=== PATIENT | female | born 1995 | race Caucasian/White ===

== ENCOUNTER 2019-09-25 10:16 | Outpatient (CLI) | payer MEDICAID, SELFPAY ==
--- NOTE | ~2019-09-25 | US_ITS ---
EXAMINATION: US OB follow up DATE: 09/25/2019 11:40 INDICATION: Second trimester dating TECHNIQUE: Real-time ultrasound of the pelvis was performed. The interpreting radiologist was not pre sent for the study. COMPARISON: None. FINDINGS: The uterus measures 14.7 x 7.3 x 12.8 cm. There is a single living fetus in transverse lie. The placenta is posterior. There are hypoechoic areas of the placenta of unclear significance. cardiac activity and movement are noted. heart rate is 150 beats per minute (bpm). The a mniotic fluid index is subjectively normal. The following biometric data were obtained: Biparietal diameter (BPD): 3.1 cm; head circumference (HC): 11.9 cm; abdominal circumference (AC): 10 .0 cm; femur length (FL): 1.8 cm. These measurements are concordant. Estimated weight is 133 g +/- 20 g, which correlates with the 79th percentile when 03/17/2020 is used as estimated date of delivery. As single measurements, these parameters are each equal to the following estimated gestational ages w ith ranges of +/- 2 standard deviations: BPD: 15 weeks 6 days ( 14 weeks 5 days - 17 weeks 0 days). HC: 15 weeks 6 days ( 14 weeks 5 days - 17 weeks 1 days). AC: 16 weeks 1 days ( 14 weeks 3 days - 17 weeks 5 days). FL: 15 weeks 2 days ( 14 weeks 0 days - 16 weeks 5 days). estimated gestational age based solely on measurements from this exam is 15 weeks 3 days +/- 1 weeks 1 days. IMPRESSION: 1. Single living fetus in transverse lie. 2. Estimated weight is 133 g +/- 20 g, which correlates with the 79th percentile when 03/17/2020 is used as estimated date of delivery. 3. Hypoechoic areas of the placenta of unclear significance. Findings could reflect placental vessels however abruption could have a similar appearance. Follow-up ultrasound is recommended. Reviewed, dictated and finalized at location A. 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 Single living fetus in transverse lie. 2. Estimated weight is 133 g +/- 20 g, which correlates with the 79th per centile when 03/17/2020 is used as estimated date of delivery. 3. Hypoechoic areas of the placenta of unclear significance. Findings could ref lect placental vessels however abruption could have a similar appearance. Follo w-up ultrasound is recommended.
== END 2019-09-25 10:17 | disposition home or self-care (01) ==
PROVIDERS: Visit Provider Obstetrics & Gynecology
DX: Z34.92 Encounter for supervision of normal pregnancy, unspecified, second trimester (principal); Z3A.15 15 weeks gestation of pregnancy
CPT/HCPCS: 76816

== ENCOUNTER 2020-02-05 15:16 | Observation (INO) | payer OTHER, SELFPAY ==
[2020-02-05] VITALS (35 sets, daily range): BP systolic 117–145; BP diastolic 70–74; PULSE 79–120; TEMP 36.9; O2SAT 99–100; BMI 32.9
--- NOTE | ~2020-02-05 | US_ITS ---
EXAMINATION: US OB limited w BPP DATE: 02/05/2020 17:44 INDICATION: decelerations. TECHNIQUE: Real-time pelvic ultrasound was performed. The interpreting radiologist was not present fo r the study. COMPARISON: None. FINDINGS: There is a single living fetus in vertex presentation. The placenta is posterior. cardiac acti vity and movement are demonstrated. heart rate is 137 beats per minute (bpm). JAMIE is norm al measuring 13.7 cm. Biophysical profile performed by the technologist: breathing (30 sec sustained breathing in 30 minutes): 2 out of 2 movement (3 gross body movements in 30 minutes): 2 out of 2 tone (one episode of rgirvfy-iygoontvf-qzlijvk limb movement): 2 out of 2 Amniotic fluid pocket (2 cm): 2 out of 2 Total score: 8 out of 8 IMPRESSION: 1. Single living intrauterine in vertex presentation with heart rate of 137 bpm. 2. Normal JAMIE measures 13.7 cm. 3. Biophysical profile 8 out of 8. Reviewed, dictated and finalized at location A.
--- NOTE | 2020-02-05 16:28 | PC.NURSE ---
Pt was originally here at 1516 from office for NST, BPP and JAMIE due to FHR deceleration on NST at office- pt has gestational diabetes. Dr. Morin informed of contractions since pt arrival. Pt states she has been having contractions like this for the last week. Had only had an 8 oz glass of milk to drink today. Pt has been orally hydrating and keeping her bladder empty, but still slime. Orders received to change to observation status and start Procardia and send UA.
--- NOTE | 2020-02-05 16:29 | OBADM ---
This patient, Star Mitchell, admitted to the OB room Labor/Delivery/Recovery 119 for observation. Patient/family oriented to hospital policies and general routines including ID bracelet, bed and alarms, visiting hours, pain management, procedures, bathroom and other care routines, personal items, smoking policy, room service/diet, and visiting hours. Patient/Family are encouraged to report perceived risks to care and to ask questions if they do not understand what they are told or what they should do.
[2020-02-05 17:02] LABS: Add Urine Microscopic? NO; Appearance Urine Clear (Clear); Bilirubin Urine Negative (Negative); Blood Urine Negative (Negative); Color Urine Colorless (Yellow); Glucose Urine UA Negative (Negative); Ketones Urine Negative (Negative); Leukocyte Esterase Ur Negative LEU/UL (Negative); Nitrate Urine Negative (Negative); Protein Urine Negative (Negative); Urobilinogen Urine Negative mg/dL (<2.0)
[2020-02-05] MEDS: NIFEdipine 10 MG CAPSULE PO (17:05)
[2020-02-05 17:08] LABS: Specific Grav Ur 1.003 (1.001-1.035)
--- NOTE | 2020-02-05 18:30 | PC.NURSE ---
Updated Dr. Morin on patient continued contractions following procardia. Patient reports feeling contraction pain in back. Contractions palpate mild. FHT reactive. Orders received.
[2020-02-05] MEDS: TERBUTALINE SULFATE 1 MG/ML VIAL 0.25 MG SUB-Q ×2 (18:42→19:57)
--- NOTE | 2020-02-05 18:42 | PC.NURSE ---
Plan of care discussed with patient. Patient educated on terbutaline prior to administering. Patient agrees to plan of care and denies questions.
--- NOTE | 2020-02-05 19:55 | PC.NURSE ---
Updated Dr. Morin on patient contractions. FHT remain reactive. Patient slime >6 in an hour. Orders received.
--- NOTE | 2020-02-05 19:57 | PC.NURSE ---
Plan of care discussed with patient. Patient agrees to plan of care and denies questions. Second dose of terbutaline administered as ordered.
--- NOTE | 2020-02-05 21:22 | PC.NURSE ---
Discharge instructions reviewed with patient. Patient educated on labor precautions. Patient states understanding of all discharge instructions. Patient agrees to discharge. Patient left ambulating at 2122.
--- NOTE | 2020-03-01 07:38 | P.PNOB_ITS ---
OB - Triage/Final Diagnosis Evaluation Laboratory results: Laboratory Tests 02/05/20 16:53 Urine Color Colorless Urine Appearance Clear Urine pH 7.0 Ur Specific [place] 1.003 Urine Protein Negative Urine Glucose (UA) Negative Urine Ketones Negative Ur Blood (Man) Negative Urine Nitrate Negative Urine Bilirubin Negative Urine Urobilinogen Negative Leukocyte Esterase Rfl Negative Final Diagnosis (1) contractions: Code(s): O47.9 - False labor, unspecified Status: Acute
== END 2020-02-05 21:22 | disposition home or self-care (01) ==
PROVIDERS: Admitting Provider Obstetrics & Gynecology; Visit Provider Obstetrics & Gynecology
DX: O60.00 Preterm labor without delivery, unspecified trimester (principal); O36.8190 Decreased fetal movements, unspecified trimester, not applicable or unspecified; Z3A.00 Weeks of gestation of pregnancy not specified
CPT/HCPCS: 76815; 76819; 81003; 96372; A9270; G0378; G0379; J3105

== ENCOUNTER 2020-02-09 15:35 | Observation (INO) | payer OTHER, SELFPAY ==
[2020-02-09] VITALS (34 sets, daily range): BP systolic 120–123; BP diastolic 79–82; PULSE 74–124; TEMP 37.2; O2SAT 98–100; BMI 33.3
[2020-02-09] MEDS: TERBUTALINE SULFATE 1 MG/ML VIAL 0.25 MG SUB-Q ×2 (17:17→18:40)
--- NOTE | 2020-02-09 18:09 | OBADM ---
This patient, Star Mitchell, admitted to the OB room OB Post 113 for observation. Patient/family oriented to hospital policies and general routines including ID bracelet, bed and alarms, visiting hours, pain management, procedures, bathroom and other care routines, personal items, smoking policy, room service/diet, and visiting hours. Patient/Family are encouraged to report perceived risks to care and to ask questions if they do not understand what they are told or what they should do.
--- NOTE | 2020-02-09 18:20 | PC.NURSE ---
Report received from Adis Dong RN [id number] to give a 2nd dose of terbutaline and if contractions are decreased pt may be discharged home after 1hr per Dr. Morin.
--- NOTE | 2020-03-03 08:00 | PM.OBTRLD ---
OB - Triage/Final Diagnosis Final Diagnosis (1) contractions: Code(s): O47.9 - False labor, unspecified Status: Acute
--- NOTE | 2020-03-03 14:12 | PM.OBTRLD ---
OB - Triage/Final Diagnosis Final Diagnosis (1) contractions: Code(s): O47.9 - False labor, unspecified Status: Acute
== END 2020-02-09 19:45 | disposition home or self-care (01) ==
PROVIDERS: Admitting Provider Obstetrics & Gynecology; Visit Provider Obstetrics & Gynecology
DX: O47.9 False labor, unspecified (principal); Z3A.00 Weeks of gestation of pregnancy not specified
CPT/HCPCS: 96372; G0378; G0379; J3105

== ENCOUNTER 2020-03-01 15:40 | Outpatient (RCR) | payer OTHER, SELFPAY ==
[2020-01-29 16:04] VITALS: BP 120/70; PULSE 69
--- NOTE | ~2020-03-01 | US_ITS ---
EXAMINATION: US OB limited DATE: 03/01/2020 17:17 INDICATION: Maternal gestational diabetes. Assess amniotic fluid index during third trimester of preg lv. TECHNIQUE: Real-time ultrasound of the pelvis was performed. The interpreting radiologist was not pre sent for the study. COMPARISON: 02/05/2020 FINDINGS: There is a single living fetus in vertex presentation. The placenta is fundal. heart rate is 1 52 beats per minute (bpm). The amniotic fluid index is 12.4 cm, which is normal (5th%-95%: 7.5-24.0 c m at 37 weeks estimated gestational age). IMPRESSION: 1. Single living fetus in vertex presentation with heart rate of 152 bpm. 2. Normal amniotic fluid index of 12.4 cm. Reviewed, dictated and finalized at location A. IMPRESSION: 1. Single living fetus in vertex presentation with heart rate of 152 bpm . 2. Normal amniotic fluid index of 12.4 cm.
[2020-03-01 16:27] VITALS: BP 124/78; PULSE 93
== END 2020-03-14 07:33 | disposition home or self-care (01) ==
LOC: ANHOBOP 15:40
PROVIDERS: Visit Provider Obstetrics & Gynecology
DX: O24.419 Gestational diabetes mellitus in pregnancy, unspecified control (principal); Z3A.34 34 weeks gestation of pregnancy; Z3A.38 38 weeks gestation of pregnancy
CPT/HCPCS: 59025; 76815

== ENCOUNTER 2020-03-09 13:50 | Outpatient (CLI) | payer OTHER, SELFPAY ==
[2020-03-09 14:15] LABS: Hematocrit 35.2 % (37.0-47.0); Hemoglobin 11.5 g/dL (12.0-15.0); Mean Corpuscular HGB Conc 32.7 g/dl (32-36); Mean Corpuscular Hemoglobin 26.9 pg (26-34); Mean Corpuscular Volume 82.4 fl (80-100); Mean Platelet Volume 9.4 fl (7.4-10.4); Platelet Count Result 260 k/mm3 (150-375); Red Blood Count 4.27 M/mm3 (4.2-5.4); Red Cell Distribution Width 13.6 % (11.5-14.5); White Blood Count 7.6 K/mm3 (4.5-10.0)
[2020-03-10 07:21] LABS: Rapid Plasma Reagin Non-Reactive (NonReactive)
== END 2020-03-09 13:51 | disposition home or self-care (01) ==
PROVIDERS: Visit Provider Obstetrics & Gynecology Gynecology
DX: Z34.93 Encounter for supervision of normal pregnancy, unspecified, third trimester (principal); Z3A.00 Weeks of gestation of pregnancy not specified
CPT/HCPCS: 36415; 85027; 86592; 86850; 86900; 86901

== ENCOUNTER 2020-03-10 05:30 | Inpatient (IN) | payer OTHER, SELFPAY ==
[2020-03-10] VITALS (56 sets, daily range): BP systolic 89–138; BP diastolic 65–90; PULSE 68–172; RESP 12–18; TEMP 36.4–36.8; O2SAT 96–100; BMI 34.9
--- NOTE | 2020-03-10 05:54 | LDADM ---
This patient, Star Mitchell, was admitted to Labor/Delivery/Recovery 120 on 03/10/20 at 05:30. Plans for labor, pain management and were discussed with patient. Patient/family oriented to hospital policies and general routines including ID bracelet, bed and alarms, visiting hours, pain management, procedures, bathroom and other care routines, personal items, smoking policy, room service/diet and guest tray routines, security routines, and visiting hours. Patient/Family are encouraged to report perceived risks to care and to ask questions if they do not understand what they are told or what they should do. See OBIX for further documentation.
[2020-03-10] MEDS: LACTATED RINGERS 1,000 ML 125 ML IV CONT ×2 (06:17→06:48)
[2020-03-10 06:22] LABS: Glucose Point of Care 85 (65-105)
--- NOTE | 2020-03-10 06:46 | PM.IMHP ---
H&P: HPI History of Present Illness Date/Time: 03/10/20 06:46 Chief complaint: Section Narrative: Star Mitchell is a 24 year old female A1 at 39 wks here for repeat LTCS. Patient declined trial of labor. complicated by GDMA2. labs: A+; RPR-; HIV -; HBSAg-; Rubella Immune; GBS -. [facility] Past Medical History Medical History (Updated 03/10/20 @ 06:51 by Azalea Rose MD) Diabetes in contractions Surgical History Surgical History (Updated 03/10/20 @ 06:51 by Azalea Rose MD) History of section S/P 2015 complicated by Preeclampsia and GDMA1 C/section for nonreassuring status S/P laparoscopy 2013 Dx endometriosis Family History Family History (Updated 02/15/20 @ 14:00 by Mack Browne RN) Other No pertinent family history Social History Social History Smoking status: Never smoker Substance use: never Gender identity (if verbalized by the patient): Female Spiritual care concerns: No Meds Home Medications and Allergies Home Medications Medication Instructions Recorded Confirmed Type Humulin N NPH U-100 Insulin 24 unit SUBCUT HS 02/05/20 03/10/20 History PNV cmb#95-ferrous fumarate-FA 1 tablet PO DAILY 02/05/20 03/10/20 History [] aspirin [Adult Low Dose Aspirin] 81 mg PO DAILY 02/05/20 03/10/20 History ergocalciferol (vitamin D2) 1,250 mcg PO WEEKLY 02/05/20 03/10/20 History [Vitamin D2] Allergies Allergy/AdvReac Type Severity Reaction Status Date / Time No Known Allergies Allergy Verified 02/05/20 15:31 Vital Signs Vital Signs - 24 hr 03/10/20 05:44 03/10/20 05:46 Pulse Rate 81 90 Blood Pressure 124/83 119/84 Exam Const: General: healthy appearing and alert Orientation/consciousness: patient oriented x3 Resp: Effort & Inspection: normal respiratory effort Auscultation: clear to auscultation bilaterally Cardio: Rate: regular rate Rhythm: regular rhythm GI: GI Palp: Yes Soft to palpation, No Tenderness to palpation present (GI), No Palpable mass present and Yes Other GI palpation findings present (gravid with fundal height 40 cm) : External Female Exam: normal external appearance Speculum Exam - Vagina: normal appearance of the vagina Speculum Exam - Cervix: normal appearance of the cervix (1/th/high) Bimanual exam- vagina & uterus: other (uterus 40 cm) Neuro: General: patient oriented x3 Assessment and Plan Assessment and plan (1) 39 weeks gestation of : Code(s): Z3A.39 - 39 weeks gestation of Status: Acute (2) History of section: Code(s): Z98.891 - History of uterine scar from previous surgery Status: Acute Assessment and Plan: Plan to proceed with repeat LTCS
--- NOTE | 2020-03-10 06:46 | WPDANESEPPF ---
Anes - Initial Pre Proc Eval Procedure: Operation Date: 03/10/20 07:30 Proposed Procedures p Repeat Section - Azalea Rose MD Date/Time: 03/10/20 06:46 Surgeon: Azalea Rose MD Pre Op Diagnosis: Section Patient Data Age: 24 Gender: F Height: 5 ft 1 in Weight: 84 kg Last Vital Signs Pulse 90 03/10/20 05:46 BP 119/84 03/10/20 05:46 Allergies Allergy/AdvReac Type Severity Reaction Status Date / Time No Known Allergies Allergy Verified 02/05/20 15:31 Home Medications Medication Instructions Recorded Confirmed Type Humulin N NPH U-100 Insulin 24 unit SUBCUT HS 02/05/20 03/10/20 History PNV cmb#95-ferrous fumarate-FA 1 tablet PO DAILY 02/05/20 03/10/20 History [] aspirin [Adult Low Dose Aspirin] 81 mg PO DAILY 02/05/20 03/10/20 History ergocalciferol (vitamin D2) 1,250 mcg PO WEEKLY 02/05/20 03/10/20 History [Vitamin D2] Laboratory Tests 03/10/20 06:15 POC Capillary Glucose 85 mg/dl mg/dl (65-105) Patient hx anesthesia problems: none Family hx anesthesia problems: none PMFSH Past Medical History Medical History (Updated 03/10/20 @ 06:46 by Tyler Lala MD) Diabetes in contractions Surgical History Surgical History (Updated 03/10/20 @ 06:46 by Tyler Lala MD) History of section Family History Family History Other No pertinent family history Social History Social History Smoking status: Never smoker Substance use: never Gender identity (if verbalized by the patient): Female Spiritual care concerns: No Anes - Eval Final PreProcedure Day of Procedure 03/10/20 06:46 Patient weight: obese Heart: regular rate and rhythm Lungs: clear to auscultation Airway: Mallampati scale class II Neurological: alert and oriented Last oral intake: >/= 8 hours ASA classification: III Emergent: no Anesthetic plan: proceed Anesthesia type and monitoring: regional spinal and standard monitoring Informed Consent: The patient's anesthetic plan and its attendant risks and benefits were discussed with the patient/family/POA. Questions were solicited and answers provided to the satisfaction of the patient/family/POA.
[2020-03-10] MEDS: ceFAZolin 2 GM/D5W 50 ML 2 GM/50 ML BAG IVPB (06:55)
[2020-03-10] MEDS: LACTATED RINGERS 1,000 ML 999 ML IV CONT (07:40)
--- NOTE | 2020-03-10 07:41 | PM.OP ---
Procedure Note - Brief Procedure Note - Brief Date of procedure: 03/10/20 Pre-op diagnosis: Section Previous csection; IUP 39 wk; GDMA2 Post-op diagnosis: same Procedure performed: repeat LTCS Anesthesia: spinal Surgeon: Azalea Rose MD Estimated blood loss (mL): 355 Drains: Yes ([place]) Packing: No Pathology: yes (placenta) Complications: No immediate complications Condition: stable Disposition: floor Findings: female with nuchal cord x 2; 8# with Apgars of 8/9; placenta with velementous insertion; normal appearing tubes, ovaries, and uterus
--- NOTE | 2020-03-10 07:42 | PM.OBDSVD ---
DS: Admitting Diagnosis Admitting Diagnosis Admitting Diagnosis: 39 weeks gestation of ; prior csection; GDMA2 DS: Discharge Diagnosis Discharge Diagnosis (1) delivery delivered: Code(s): O82 - Encounter for delivery without indication Status: Acute (2) History of section: Code(s): Z98.891 - History of uterine scar from previous surgery Status: Acute (3) 39 weeks gestation of : Code(s): Z3A.39 - 39 weeks gestation of Status: Acute (4) GDM, class A2: Code(s): O24.419 - Gestational diabetes mellitus in , unspecified control Status: Acute OB - DS: Summary OB Procedures : NST and Ultrasound OB Procedures Intrapartum: low cervical, transverse OB Procedures: : None Peripartum Data Infant Delivery Method: Section Procedures: Procedures Operation Date: 03/10/20 07:30 <No data on this case meets the specified criteria> complications: none Status at Discharge Functional status at discharge: independent ambulation Overall status at discharge: patient is progressing back to baseline Time Spent with Patient Time attestation: Total time spent providing and/or coordinating discharge services: DS: Data Data Completed and Pending Labs on day of discharge: Labs from last 24 hours 03/10/20 06:15 POC Capillary Glucose 85 Discharge Plan Discharge Attending physician on discharge: Azalea Rose Consulting providers: Pedrito Chris Discharging Clinician: Azalea Rose Anticipated Discharge Date/Time: 03/12/20 08:18 Patient Disposition: Home, Self-Care Activity: may drive after 2 weeks and pelvic rest Diet: regular Wound Care Instructions: incision open to air Patient Instructions: Antibiotic Form Stand Alone Forms: General Discharge Information Follow-up/Referrals: Azalea Rose MD [Physician] - 1 Week Discharge Medications: New hydrocodone-acetaminophen 5-325 mg Tablet 1 tab PO Q3H PRN (Reason: Moderate Pain (4-6)) Qty: 10 RF: 0 Continued PNV cmb#95-ferrous fumarate-FA [] 28 mg iron- 800 mcg Tablet 1 tablet PO DAILY RF: 0 ergocalciferol (vitamin D2) [Vitamin D2] 1,250 mcg (50,000 unit) Capsule 1,250 mcg PO WEEKLY RF: 0 Discontinued Humulin N NPH U-100 Insulin 100 unit/mL Suspension 24 unit SUBCUT HS RF: 0 aspirin [Adult Low Dose Aspirin] 81 mg Tablet,Delayed Release (Dr/Ec) 81 mg PO DAILY RF: 0 Date of admission: 03/10/20 05:30 Primary Care Provider: PHYSICIAN,HOSPITAL SUPERVISOR Admitting Provider: Azalea Rose Attending physician on admission: Azalea Rose Condition: Stable Care Plan Goals: Plans DepoProvera for bc. First shot given at discharge.
[2020-03-10] MEDS: OXYTOCIN 30 UNITS/NS 500 ML 30 UNITS/500 ML BAG 125 UNITS IV CONT (09:06)
--- NOTE | 2020-03-10 10:10 | PC.NURSE ---
Patient transferred to post room #284. Support person present. Oriented to unit, room, information board, rooming in, admission packet and security measures. Patient verbalizes understanding.
--- NOTE | 2020-03-10 12:37 | OP_ITS ---
DATE OF PROCEDURE: 03/10/2020 PREOPERATIVE DIAGNOSES: Intrauterine at 39 weeks, previous section, gestational diabetes, insulin requiring. POSTOPERATIVE DIAGNOSES: Intrauterine at 39 weeks, previous section, gestational diabetes, insulin requiring. PROCEDURE: Repeat low-transverse section. ANESTHESIA: Spinal. FINDINGS: The is a female in the vertex presentation. Nuchal cord x2. Weighing 8 pounds 0 ounces. Apgars of 8 at one minute, 9 at five minutes. The placenta has a velamentous insertion and there is a nuchal cord x2. The tubes, ovaries, and uterus appeared grossly normal. ESTIMATED BLOOD LOSS: 355 mL. PATHOLOGY: Placenta. DESCRIPTION OF PROCEDURE: Patient was taken to the operating room, placed under dorsal supine position with a leftward tilt. Once anesthesia was deemed adequate, she was prepped and draped in usual sterile fashion. A Pfannenstiel skin incision was made through her prior incision and carried to the underlying layer of fascia, which was nicked in the midline. The incision was extended laterally using Medina scissors. Bleeding vessels in the subcutaneous tissue were cauterized for hemostasis. The Pean was used to separate the rectus muscles. The perineum was entered during this process and incision was extended with blunt traction. The bladder blade was placed. The vesicouterine peritoneum was tented, entered with Metzenbaums, and extended laterally. Bladder flap was created using sharp and blunt dissection due to adhesions. Bladder blade was replaced. The lower uterine segment was incised in a transverse fashion. Incision was extended laterally using blunt traction. Membranes were ruptured. Clear fluid was noted. 's head was delivered through the incision while the ophthalmology assistant applied fundal pressure. The was fully delivered. The cord was detangled. The placenta was removed and noted to have a velamentous insertion site. The placenta was removed manually. Uterus was cleared of all clots and debris and exteriorized. Uterine incision was closed using 0 Monocryl in a running locked fashion. Same suture was used to imbricate. Good hemostasis was noted. The cul-de-sac was irrigated. The uterus was returned to the abdomen. The gutters were irrigated. The incision was again inspected and noted to be hemostatic. The fascia was closed using 0 Vicryl in a running fashion. Subcutaneous tissues were irrigated and noted to be hemostatic. The scar was undermined anteriorly and posteriorly due to it being pulled in. Bleeding vessels were cauterized. The skin incision was closed using 4-0 Vicryl in a subcuticular fashion. Dermaflex was placed over the incision. Patient was taken to recovery room in stable condition. The patient was given Ancef prior to incision, and sponge, instrument, and needle counts were correct per the OR staff. Pepe I MT: Will
[2020-03-10] MEDS: DOCUSATE SODIUM 100 MG CAPSULE PO (16:03)
[2020-03-10] MEDS: IBUPROFEN 600 MG TABLET PO (16:03)
[2020-03-10] MEDS: SIMETHICONE 80 MG TAB.CHEW PO (16:03)
[2020-03-11 04:52] VITALS: BP 133/79; PULSE 89; RESP 16; TEMP 36.3; O2SAT 100
[2020-03-11] MEDS: SIMETHICONE 80 MG TAB.CHEW PO ×4 (04:52→20:34)
[2020-03-11 05:24] LABS: Basophils Percent Auto 0.4 % (0.2-1.2); Eosinophils Absolute Auto 0.1 K/mm3 (0-0.3); Hematocrit 30.2 % (37.0-47.0); Hemoglobin 9.8 g/dL (12.0-15.0); Immature Granulocyte Absolute 0.04 K/mm3 (0.00-0.031); Immature Granulocyte Percent A 0.4 % (0-0.5); Lymphocytes Absolute Auto 1.88 K/mm3 (0.9-3.2); Lymphocytes Percent Auto 19.2 % (18.3-44.2); Mean Corpuscular HGB Conc 32.5 g/dl (32-36); Mean Corpuscular Hemoglobin 27.4 pg (26-34); Mean Corpuscular Volume 84.4 fl (80-100); Monocytes Absolute Auto 0.7 K/mm3 (0.1-0.6); Monocytes Percent Auto 6.9 % (2.6-8.5); Neutrophils Absolute Auto 7.1 K/mm3 (1.3-6.7); Neutrophils Percent Auto 72.1 % (45.5-73.1); Platelet Count Result 229 k/mm3 (150-375); Red Blood Count 3.58 M/mm3 (4.2-5.4); Red Cell Distribution Width 13.6 % (11.5-14.5); White Blood Count 9.8 K/mm3 (4.5-10.0)
[2020-03-11] MEDS: POLYSACCHARIDE IRON COMPLEX 150 MG CAPSULE PO ×2 (07:01→16:24)
[2020-03-11] MEDS: DOCUSATE SODIUM 100 MG CAPSULE PO ×2 (07:01→16:24)
[2020-03-11] MEDS: IBUPROFEN 600 MG TABLET PO ×3 (07:02→20:34)
[2020-03-11 07:18] LABS: Glucose Point of Care 125 (65-105)
--- NOTE | 2020-03-11 07:36 | PM.OBPNVD ---
OB - PN: Subj Subjective Date/time seen: 03/11/20 07:36 S: doing well standing at bedside pain controlled well bleeding light OB - PN: Obj Data Labs CBC & Chem 7: 03/11/20 04:48 Labs: Laboratory Results - last 24 hr 03/11/20 03/11/20 04:48 07:00 WBC 9.8 RBC 3.58 L Hgb 9.8 L Hct 30.2 L MCV 84.4 MCH 27.4 MCHC 32.5 RDW 13.6 Plt Count 229 MPV 10.0 Immature Gran % (Auto) 0.4 Neut % (Auto) 72.1 Lymph % (Auto) 19.2 [place] % (Auto) 6.9 Eos % (Auto) 1.0 Baso % (Auto) 0.4 Lymph # (Auto) 1.88 [place] # (Auto) 0.7 H Eos # (Auto) 0.1 Baso # (Auto) 0.0 Abs Immat Gran (auto) 0.04 H Absolute Neuts (auto) 7.1 H Absolute Nucleated RBC 0.0 Nucleated RBC % 0.0 POC Capillary Glucose 125 H OB - PN A/P Assessment and Plan (1) delivery delivered: Code(s): O82 - Encounter for delivery without indication Status: Acute Assessment and Plan: continue with post op care. Time Spent With Patient Time: Total time spent is greater than 50% in coordination of care (as documented) at patient's floor/unit and/or counseling patient: Exam GI: Other: incision clean dry and intact
[2020-03-11 07:55] VITALS: BP 132/84; PULSE 89; RESP 16; TEMP 37.2; O2SAT 97
--- NOTE | 2020-03-11 10:32 | WPDANLDPN2 ---
Anes-Prog Note L&D Date/Time: 03/11/20 10:32 Comfortable throughout: section Neuraxial method: spinal Epidural/Spinal procedure site: clean & non-tender Neuro status: Neuro function grossly intact. Cardiovascular status: normal Respiratory status: normal Airway patency: baseline Mental status: baseline Post-Op hydration status: normal Vital Signs: Last Vital Signs Temp 37.2 C 03/11/20 07:55 Pulse 89 03/11/20 07:55 Resp 16 03/11/20 07:55 BP 132/84 03/11/20 07:55 Pulse Ox 97 03/11/20 07:55 I/O: Intake & Output 03/10/20 03/11/20 03/11/20 23:59 07:59 15:59 Intake Total 800 Output Total 950 Balance -150 Post-procedural complaints: pruritis mild, no treatment Patient feedback: Patient satisfied with anesthetic care.
--- NOTE | 2020-03-11 10:33 | WPDANLDNPN2 ---
Anes-Prog Note L&D-Neuraxial Date/Time: 03/11/20 10:33 Neuraxial medications: intrathecal PF morphine Opiod-related complaints: pruritis mild, no treatment Patient feedback: Patient satisfied with post-operative pain management.
[2020-03-11 20:20] VITALS: BP 143/80; PULSE 93; RESP 16; TEMP 36.9; O2SAT 98
[2020-03-12 08:00] VITALS: BP 125/79; PULSE 80; PULSE 82; RESP 16; RESP 20; TEMP 37.2; O2SAT 98
--- NOTE | 2020-03-12 08:17 | P.PNOB_ITS ---
OB - PN: Subj Subjective Date/time seen: 03/12/20 08:17 Patient comments: no complaints, pain well controlled and tolerating diet [place] baby status: doing well [place] feeding status: exclusively bottle feeding OB - PN: Obj Data Labs CBC & Chem 7: 03/11/20 04:48 OB - PN A/P Plan day: 2 Plan: discharge home and other (Plans DepoProvera for bc) Time Spent With Patient Time: Total time spent is greater than 50% in coordination of care (as docu mented) at patient's floor/unit and/or counseling patient: Exam GI: Other: inc c/d/i : Bimanual exam- vagina & uterus: other (Uterus firm, nt @U)
[2020-03-12] MEDS: SIMETHICONE 80 MG TAB.CHEW PO (08:57)
[2020-03-12] MEDS: IBUPROFEN 600 MG TABLET PO (08:57)
[2020-03-12] MEDS: DOCUSATE SODIUM 100 MG CAPSULE PO (08:57)
[2020-03-12] MEDS: POLYSACCHARIDE IRON COMPLEX 150 MG CAPSULE PO (08:58)
--- NOTE | 2020-03-12 10:31 | PC.NURSE ---
Self care and infant care discharge instructions given including follow up visit date and time. Mother verbalized understanding. No questions or concerns verbalized. Very pleasant and cooperative. FOB at side.
[2020-03-12] MEDS: medroxyPROGESTERone ACETATE IM 150 MG/ML SYR IM (10:58)
[2020-03-14 10:15] VITALS: BP 125/85; PULSE 88; RESP 20; O2SAT 100
== END 2020-03-12 11:09 | disposition home or self-care (01) | DRG 540 ==
LOC: ANHLDR 07:45 → ANHOB2 10:31
PROVIDERS: Admitting Provider Obstetrics & Gynecology Gynecology; Visit Provider Obstetrics & Gynecology Gynecology
PROC: 10D00Z1 Extraction of Products of Conception, Low, Open Approach (ICD-10-PCS; CPT 59514; principal; 2020-03-10 07:30)
DX: O34.211 Maternal care for low transverse scar from previous cesarean delivery (principal); Z37.0 Single live birth; Z3A.39 39 weeks gestation of pregnancy; O24.424 Gestational diabetes mellitus in childbirth, insulin controlled; O43.123 Velamentous insertion of umbilical cord, third trimester; O69.81X0 Labor and delivery complicated by cord around neck, without compression, not applicable or unspecified; O99.73 Diseases of the skin and subcutaneous tissue complicating the puerperium; L29.9 Pruritus, unspecified
CPT/HCPCS: 36415; 85025; 88307; A9270; J0131; J0690; J1050; J2274; J2370; J2405; J2590; J7120

== ENCOUNTER 2020-12-02 17:10 | Outpatient (CLI) | payer OTHER, SELFPAY ==
[2020-12-02 17:39] VITALS: BMI 28.3
[2020-12-02 18:05] LABS: Basophils Percent Auto 0.3 % (0.2-1.2); Eosinophils Absolute Auto 0.1 K/mm3 (0-0.3); Eosinophils Percent Auto 0.9 % (0-4.4); Hematocrit 37.8 % (37.0-47.0); Immature Granulocyte Absolute 0.02 K/mm3 (0.00-0.031); Immature Granulocyte Percent A 0.3 % (0-0.5); Lymphocytes Absolute Auto 2.02 K/mm3 (0.9-3.2); Lymphocytes Percent Auto 25.9 % (18.3-44.2); Mean Corpuscular HGB Conc 34.4 g/dl (32-36); Mean Corpuscular Hemoglobin 29.2 pg (26-34); Mean Corpuscular Volume 84.9 fl (80-100); Mean Platelet Volume 8.8 fl (7.4-10.4); Monocytes Absolute Auto 0.5 K/mm3 (0.1-0.6); Monocytes Percent Auto 6.5 % (2.6-8.5); Neutrophils Absolute Auto 5.2 K/mm3 (1.3-6.7); Neutrophils Percent Auto 66.1 % (45.5-73.1); Platelet Count Result 285 k/mm3 (150-375); Red Blood Count 4.45 M/mm3 (4.2-5.4); Red Cell Distribution Width 12.8 % (11.5-14.5); White Blood Count 7.8 K/mm3 (4.5-10.0)
[2020-12-02 18:11] LABS: Collection Time Urine 24 HOURS; Patient Weight 149 Lbs; Total Volume 24 Hour Urine 1900 ml
[2020-12-02 18:30] LABS: Creatinine Urine 101.2 mg/dL; Total Protein Urine 24 Hr 228 mg/24hr (28-141); Total Protein Urine Random 12 mg/dL
[2020-12-02 18:38] LABS: Alanine Aminotransferase 10 U/L (4-35); Alkaline Phosphatase 43 U/L (38-126); Anion Gap 5 mmol/L (8-16); Aspartate Amino Transferase 24 U/L (14-36); Bilirubin,Total 0.1 mg/dL (0.2-1.3); Blood Urea Nitrogen 11 mg/dL (7-17); Calcium 9.1 mg/dL (8.4-10.2); Carbon Dioxide 25 mmol/L (22-30); Chloride 104 mmol/L (98-107); Estimated CRCL calculation 107 ml/min; Estimated Glomerular Filt Rate > 60; Glucose 84 mg/dL (65-105); Potassium 3.7 mmol/L (3.4-5.0); Sodium 134 mmol/L (137-145)
[2020-12-02 18:41] LABS: Creatinine Clearance Urine 231.7 ml/min (75-125)
[2020-12-02 18:55] LABS: HIV 1/2 Ab P24 Ag Result Negative (Negative)
[2020-12-02 19:39] LABS: Hepatitis B Surface Antigen Negative (Negative); Rubella IgG Antibody 50.9 IU/ML
[2020-12-02 19:58] LABS: Vitamin D 25 Hydroxy 64.3 ng/mL
[2020-12-05 08:55] LABS: Rapid Plasma Reagin Non-Reactive (NonReactive)
== END 2020-12-02 17:11 | disposition home or self-care (01) ==
PROVIDERS: Nurse Practitioner; Obstetrics & Gynecology; Visit Provider Obstetrics & Gynecology Gynecology
DX: O13.9 Gestational [pregnancy-induced] hypertension without significant proteinuria, unspecified trimester (principal); Z3A.00 Weeks of gestation of pregnancy not specified
CPT/HCPCS: 36415; 80053; 81050; 82306; 82575; 83036; 84156; 85025; 86592; 86703; 86762; 86850; 86900; 86901; 87340; G0432

== ENCOUNTER 2020-12-27 15:44 | Inpatient (IN) | payer OTHER, SELFPAY ==
[2020-12-27] VITALS (11 sets, daily range): BP systolic 105–113; BP diastolic 62–73; PULSE 79–93; RESP 16–18; TEMP 37.1; BMI 28.3
[2020-12-27] MEDS: miSOPROStol 200 MCG TABLET RECTAL ×2 (17:16→21:24)
[2020-12-27 17:28] LABS: Basophils Absolute Auto 0.1 K/mm3 (0.0-0.1); Basophils Percent Auto 0.5 % (0.2-1.2); Eosinophils Absolute Auto 0.1 K/mm3 (0-0.3); Eosinophils Percent Auto 0.8 % (0-4.4); Hematocrit 37.9 % (37.0-47.0); Hemoglobin 13.2 g/dL (12.0-15.0); Immature Granulocyte Absolute 0.04 K/mm3 (0.00-0.031); Immature Granulocyte Percent A 0.4 % (0-0.5); Lymphocytes Absolute Auto 1.88 K/mm3 (0.9-3.2); Lymphocytes Percent Auto 19.2 % (18.3-44.2); Mean Corpuscular HGB Conc 34.8 g/dl (32-36); Mean Corpuscular Hemoglobin 29.5 pg (26-34); Mean Corpuscular Volume 84.8 fl (80-100); Mean Platelet Volume 9.5 fl (7.4-10.4); Monocytes Absolute Auto 0.6 K/mm3 (0.1-0.6); Neutrophils Absolute Auto 7.2 K/mm3 (1.3-6.7); Neutrophils Percent Auto 73.1 % (45.5-73.1); Platelet Count Result 287 k/mm3 (150-375); Red Blood Count 4.47 M/mm3 (4.2-5.4); Red Cell Distribution Width 12.8 % (11.5-14.5); White Blood Count 9.8 K/mm3 (4.5-10.0)
[2020-12-27 17:36] LABS: Glucose 84 mg/dL (65-105)
[2020-12-27 17:56] LABS: Amphetamine Screen Urine Negative (Negative); Barbiturate Screen Urine Negative (Negative); Benzodiazepines Screen Urine Negative (Negative); Cannabinoid Screen Urine Negative (Negative); Cocaine Screen Urine Negative (Negative); Methadone Screen Urine Negative (Negative); Opiate Screen Urine Negative (Negative); Phencyclidine Screen Urine Negative (Negative)
--- NOTE | 2020-12-27 18:00 | LDADM ---
This patient, Star Mitchell, was admitted to Labor/Delivery/Recovery 110 on 12/27/20 at 15:44. Plans for labor, pain management and were discussed with patient. Patient/family oriented to hospital policies and general routines including ID bracelet, bed and alarms, visiting hours, pain management, procedures, bathroom and other care routines, personal items, smoking policy, room service/diet and guest tray routines, security routines, and visiting hours. Patient/Family are encouraged to report perceived risks to care and to ask questions if they do not understand what they are told or what they should do. See OBIX for further documentation.
[2020-12-27 18:19] LABS: HIV 1/2 Ab P24 Ag Result Negative (Negative)
[2020-12-27 22:36] LABS: Glucose Point of Care 103 mg/dl (65-105)
[2020-12-27] MEDS: fentaNYL CITRATE INJ (*CRX) 100 MCG/2 ML VIAL 50 MCG IV PUSH (23:35)
[2020-12-28] VITALS (19 sets, daily range): BP systolic 99–124; BP diastolic 42–97; PULSE 79–129; RESP 16–20; TEMP 36.7–37
[2020-12-28] MEDS: miSOPROStol 200 MCG TABLET RECTAL (01:22)
[2020-12-28] MEDS: miSOPROStol 200 MCG TABLET VAGINAL (05:10)
[2020-12-28] MEDS: fentaNYL CITRATE INJ (*CRX) 100 MCG/2 ML VIAL 50 MCG IV PUSH (05:14)
[2020-12-28 07:00] LABS: Rapid Plasma Reagin Non-Reactive (NonReactive)
[2020-12-28] MEDS: OXYTOCIN 30 UNITS/NS 500 ML 30 UNITS/500 ML BAG 999 UNITS IV CONT (08:05)
[2020-12-28] MEDS: miSOPROStol 200 MCG TABLET 600 MCG RECTAL (08:05)
--- NOTE | 2020-12-28 08:25 | WPDOBADMIT ---
Obstetrics - Admit Note Admission Note: record reviewed. No pertinent additions to the history and/or any subsequent changes in the physical findings that are not consistent with the expected course of the were found. Patient 25 y/o admitted for demise at 16 weeks. Patient seen in office for care and no heart tones. Patient admitted and started onf cytotec 200 mcg q 4 hours . Delivered male infant. placenta still present. EBL approx 500 cc cytotec 600 mcg rectal placed and pitocin started. Additions to the history and/or subsequent changes in the physical findings follow. None.
[2020-12-28] MEDS: fentaNYL CITRATE INJ (*CRX) 100 MCG/2 ML VIAL IV PUSH (08:43)
[2020-12-28] MEDS: OXYTOCIN 30 UNITS/NS 500 ML 30 UNITS/500 ML BAG 125 UNITS IV CONT (09:30)
[2020-12-28] MEDS: ceFAZolin 2 GM/D5W 50 ML 2 GM/50 ML BAG IVPB (10:05)
--- NOTE | 2020-12-28 11:22 | PC.NURSE ---
Met with Star and her Mother. FOB not in room at this time. Share program and support presented to pt, with commitment to support her as she needs and wants to embrace. Pt did sign the Share consent. She has the Share folder of information, and will be given mementos. Photos have been taken. Pt a little tearful, but also stated, these things happen . She seemed attentive, however, to information shared. Share f/u committed to Star, and also encouraged her to reach out for support as she needs to. Pt agreed and voiced understanding.
[2020-12-30 18:40] LABS: CMV IgG Antibody <0.60 U/mL (<0.60)
[2020-12-30 18:57] LABS: Anti Cardio Antibody IgM <12 MPL (<=12); Anti Cardiolipin Antibody IgA <11 APL (<=11); Anti Cardiolipin Antibody IgG <14 GPL (<=14)
[2020-12-30 20:36] LABS: Lupus dRVVT 1:1 Mix Interpreta Not Indicated; Lupus dRVVT Screen 30 sec (<=45); PTT-LA Screen 26 sec (<=40)
[2020-12-31 17:22] LABS: CMV IgM Antibody <30.00 AU/mL (<30.00)
--- NOTE | 2021-01-16 09:45 | PM.OBDSVD ---
DS: Admitting Diagnosis Admitting Diagnosis Admitting Diagnosis: demise DS: Discharge Diagnosis Discharge Diagnosis (1) IUFD at less than 20 weeks of gestation: Code(s): O02.1 - Missed Status: Acute OB - DS: Summary OB Procedures : Ultrasound OB Procedures Intrapartum: Spontaneous Vag Delivery OB Procedures: : None Time Spent with Patient Time attestation: Total time spent providing and/or coordinating discharge services: Exam Const: General: cooperative and alert DS: Data Data Completed and Pending Completed studies during hospitalization: Pending at discharge 12/28/20 10:19 Surgical [PTH] Routine Discharge Plan Discharge Attending physician on discharge: Azalea Rose Discharging Clinician: Murtaza Morin Patient Disposition: Home, Self-Care Activity: as tolerated and pelvic rest Diet: as tolerated and regular Discharge Instructions: Follow-Up: Call your Provider's office for an appointment to be seen in: one week EPISIOTOMY/PERINEAL CARE: * Until bleeding stops, use your annie bottle after urinating * Change your pad frequently throughout the day * You may take sitz baths several times a day (fill your bathtub with warm water and soak for 20 minutes.) Do NOT bathe in the water * No tub baths until seen by your physician - You may shower BLEEDING: * Each individual will experience vaginal bleeding, but it will vary with each situation and individual woman. * Vaginal bleeding will go thru cycles-from bright red, to pinkish to a white, creamy discharge. This is considered normal. You may also experience a brownish discharge which is also normal. DIET AND NUTRITION: * Eat at least 3 regular, well-balanced meals per day: include all 4 food groups daily. * You may prefer 6 small meals. * Drink 6-8 glasses of water or non-caffeinated beverages per day. * Loss of appetite is common with loss. We encourage you to try to eat; this will help with both your physical and emotional health. ACTIVITY: * Rest as much as possible during the day. * Do not exercise or lift anything heavier than 10 pounds (such as laundry or other children.) * Avoid stairs or driving as much as possible, especially if you are taking pain medication. * Do not put anything into the vagina. No douching, tampons, or sexual activity until seen and released by your physician. * Listen to your body, and do not do what is uncomfortable or painful. EMOTIONAL HEALTH: * This is a very difficult and sad time for you and your family, friends, and other children. It may be helpful to refer to the booklets on loss that you received. * It is okay to be sad and to cry. Denial, anger, and guilt are also normal stages that you and your family may go thru during this time. Each person reaches these stages at their own pace. * Keep the lines of communication open between family and friends, and ask for help if needed. NOTIFY PHYSICIAN IF YOU HAVE ANY QUESTIONS OR IF ANY OF THE FOLLOWING SYMPTOMS OCCUR: * If your episiotomy or incision becomes red, swollen, or more painful than what you have experienced in the hospital. * If your vaginal bleeding becomes foul smelling. * If your vaginal bleeding becomes more heavy than a period or if your bleeding changes from pink to bright red. However, you may pass an occasional walnut-sized clot once or twice for the first week . * If you experience a sharp, shooting pain in you calves. * If you discover a hard, reddened area on your breast or if you experience flu-like symptoms. * If you develop a temperature of 100.4 or greater. * If you are unable to eat or sleep and take care of activities that sustain life. * If you feel any desire to harm yourself or others, contact your physician immediately or go to the nearest emergency room. FOLLOW-UP CARE: * [facility] offers a and
== END 2020-12-28 12:25 | disposition home or self-care (01) | DRG 544 ==
PROVIDERS: Admitting Provider Obstetrics & Gynecology Gynecology; Visit Provider Obstetrics & Gynecology
DX: O02.1 Missed abortion (principal); O24.429 Gestational diabetes mellitus in childbirth, unspecified control; Z3A.16 16 weeks gestation of pregnancy
CPT/HCPCS: 36415; 80307; 82947; 82948; 84439; 84443; 85025; 85460; 85613; 85730; 86146; 86147; 86592; 86644; 86645; 86703; 86850; 86900; 86901; 88300; A9270; G0432; J0690; J2590; J3010

== ENCOUNTER 2021-03-23 10:38 | Outpatient (CLI) | payer OTHER, SELFPAY ==
--- NOTE | ~2021-03-23 | US_ITS ---
EXAMINATION: US OB <= 14 weeks fetus DATE: 03/23/2021 11:33 INDICATION: Uncertain dating of a first trimester TECHNIQUE: Real-time pelvic ultrasound utilizing transabdominal probe was performed. The mahogany chou radiologist was not present for the study. COMPARISON: None. FINDINGS: The uterus measures 10.8 x 6.9 x 6.5 cm. There is an intrauterine gestational sac. A yolk sac and fe leo pole are identified. The crown rump length measures 1.6 cm, which correlates with an estimated ge stational age of 8 weeks and 0 days. heart motion is identified measuring 144 beats per minute (bpm) by M-mode Doppler. The right ovary measures 3.4 x 2.2 x 1.5 cm. And 1.7 cm hypoechoic likely corpus luteum cyst in the r ight ovary. The left ovary measures 3.3 x 2.2 x 1.7 cm. Vascular flow identified on color Doppler wit h arterial and venous waveforms at both ovaries. There is no free fluid in the pelvis. IMPRESSION: 1. Single living fetus with heart rate of 144 bpm. 2. Gestational age by ultrasound of 8 weeks 0 day(s) +/- 5 day(s) with ultrasound estimated date of delivery (KENNETH) of 11/02/2021. Reviewed, dictated and finalized at location B. IMPRESSION: 1. Single living fetus with heart rate of 144 bpm. 2. Gestational age by ultrasound of 8 weeks 0 day(s) +/- 5 day(s) with ultraso und estimated date of delivery (KENNETH) of 11/02/2021.
== END 2021-03-23 10:39 | disposition home or self-care (01) ==
PROVIDERS: Visit Provider Obstetrics & Gynecology Gynecology
DX: Z36.87 Encounter for antenatal screening for uncertain dates (principal); Z3A.08 8 weeks gestation of pregnancy
CPT/HCPCS: 76801

== ENCOUNTER 2021-05-23 12:10 | Inpatient (IN) | payer OTHER, SELFPAY ==
[2021-05-23] VITALS (35 sets, daily range): BP systolic 90–111; BP diastolic 45–71; PULSE 68–94; RESP 16; TEMP 36.3–36.4; BMI 29.3
[2021-05-23 13:18] LABS: Basophils Percent Auto 0.3 % (0.2-1.2); Eosinophils Absolute Auto 0.1 K/mm3 (0-0.3); Eosinophils Percent Auto 0.8 % (0-4.4); Hematocrit 36.9 % (37.0-47.0); Hemoglobin 13.1 g/dL (12.0-15.0); Immature Granulocyte Absolute 0.05 K/mm3 (0.00-0.031); Immature Granulocyte Percent A 0.6 % (0-0.5); Lymphocytes Absolute Auto 1.69 K/mm3 (0.9-3.2); Lymphocytes Percent Auto 19.6 % (18.3-44.2); Mean Corpuscular HGB Conc 35.5 g/dl (32-36); Mean Corpuscular Hemoglobin 30.3 pg (26-34); Mean Corpuscular Volume 85.4 fl (80-100); Mean Platelet Volume 9.3 fl (7.4-10.4); Monocytes Absolute Auto 0.5 K/mm3 (0.1-0.6); Monocytes Percent Auto 5.5 % (2.6-8.5); Neutrophils Absolute Auto 6.3 K/mm3 (1.3-6.7); Neutrophils Percent Auto 73.2 % (45.5-73.1); Platelet Count Result 275 k/mm3 (150-375); Red Blood Count 4.32 M/mm3 (4.2-5.4); Red Cell Distribution Width 13.9 % (11.5-14.5); White Blood Count 8.6 K/mm3 (4.5-10.0)
[2021-05-23] MEDS: miSOPROStol 200 MCG TABLET VAGINAL ×2 (13:21→19:29)
[2021-05-23 13:30] LABS: Glucose 115 mg/dL (65-110)
[2021-05-23 14:10] LABS: HIV 1/2 Ab P24 Ag Result Negative (Negative)
[2021-05-24] VITALS (14 sets, daily range): BP systolic 97–119; BP diastolic 51–81; PULSE 76–95; RESP 16; TEMP 36.7–36.9
--- NOTE | 2021-05-24 00:40 | WPDOBADMIT ---
Obstetrics - Admit Note Admission Note: record reviewed. No pertinent additions to the history and/or any subsequent changes in the physical findings that are not consistent with the expected course of the were found. Additions to the history and/or subsequent changes in the physical findings follow. Here from office with 16 4/7 wk IUFD. Cytotec 200 mcg q 4-6 hours for induction. Patient declines genetics and autopsy.
[2021-05-24] MEDS: OXYTOCIN 30 UNITS/NS 500 ML 30 UNITS/500 ML BAG 999 UNITS IV CONT (00:56)
--- NOTE | 2021-05-24 01:31 | PM.OBPRVD ---
OB - Delivery Note Procedure Delivery date: 05/24/21 Procedure: vaginal delivery events: Labor Induction (16 week demise) Intrapartal events: None Induction method: per misoprostol protocol Delivery monitor: external uterine Route of delivery: Laceration Description: None Specimen: Yes (placenta and fetus for gross) Quantitative Blood Loss (ml): 400 Anesthesia type: None Disposition: floor [place] Baby Date of : 05/24/21 Weeks of gestation at delivery: 16 Weight (pounds): 77 (grams) presentation: compound Placenta delivery description: Spontaneous cord vessel description: 2 Vessels score one minute: 0 score five minutes: 0
--- NOTE | 2021-05-24 01:33 | PM.OBDSVD ---
DS: Admitting Diagnosis Discharge Date 05/24/21 Admitting Diagnosis 16 week demise DS: Discharge Diagnosis Discharge Diagnosis (1) IUFD at less than 20 weeks of gestation: Code(s): O02.1 - Missed Status: Acute OB - DS: Summary OB Procedures : Ultrasound OB Procedures Intrapartum: Spontaneous Vag Delivery OB Procedures: : None Peripartum Data Delivery Method: Natural Vaginal Laceration Description: None complications: none Status at Discharge Functional status at discharge: independent ambulation Overall status at discharge: patient is progressing back to baseline Time Spent with Patient Time attestation: Total time spent providing and/or coordinating discharge services: DS: Data Data Completed and Pending Labs on day of discharge: Labs from last 24 hours 05/23/21 05/23/21 05/23/21 13:09 13:09 13:09 WBC RBC Hgb Hct MCV MCH MCHC RDW Plt Count MPV Immature Gran % (Auto) Neut % (Auto) Lymph % (Auto) [place] % (Auto) Eos % (Auto) Baso % (Auto) Lymph # (Auto) [place] # (Auto) Eos # (Auto) Baso # (Auto) Abs Immat Gran (auto) Absolute Neuts (auto) Absolute Nucleated RBC Nucleated RBC % LA PTT Screen dRVVT Screen dRVVT Additional Test Lupus Anticoag Interp Glucose TSH Free T4 Beta-2-GPI IgG Ab Pending Beta-2-GPI IgA Ab Pending Beta-2-GPI IgM Ab Pending Anti-Cardiolipin IgG Ab Anti-Cardiolipin IgA Ab Anti-Cardiolipin IgM Ab RPR Pending CMV IgG Ab Pending CMV IgM Ab Pending HIV 1&2 Ab/P24 Ag 4thGn Negative Blood Type Antibody Screen KB Hemoglobin 05/23/21 05/23/21 05/23/21 13:09 13:09 13:09 WBC RBC Hgb Hct MCV MCH MCHC RDW Plt Count MPV Immature Gran % (Auto) Neut % (Auto) Lymph % (Auto) [place] % (Auto) Eos % (Auto) Baso % (Auto) Lymph # (Auto) [place] # (Auto) Eos # (Auto) Baso # (Auto) Abs Immat Gran (auto) Absolute Neuts (auto) Absolute Nucleated RBC Nucleated RBC % LA PTT Screen Pending dRVVT Screen Pending dRVVT Additional Test Pending Lupus Anticoag Interp Pending Glucose 115 H TSH 1.470 Free T4 Beta-2-GPI IgG Ab Beta-2-GPI IgA Ab Beta-2-GPI IgM Ab Anti-Cardiolipin IgG Ab Pending Anti-Cardiolipin IgA Ab Pending Anti-Cardiolipin IgM Ab Pending RPR CMV IgG Ab CMV IgM Ab HIV 1&2 Ab/P24 Ag 4thGn Blood Type Antibody Screen KB Hemoglobin 05/23/21 05/23/21 05/23/21 13:08 13:08 13:08 WBC 8.6 RBC 4.32 Hgb 13.1 Hct 36.9 L MCV 85.4 MCH 30.3 MCHC 35.5 RDW 13.9 Plt Count 275 MPV 9.3 Immature Gran % (Auto) 0.6 H Neut % (Auto) 73.2 H Lymph % (Auto) 19.6 [place] % (Auto) 5.5 Eos % (Auto) 0.8 Baso % (Auto) 0.3 Lymph # (Auto) 1.69 [place] # (Auto) 0.5 Eos # (Auto) 0.1 Baso # (Auto) 0.0 Abs Immat Gran (auto) 0.05 H Absolute Neuts (auto) 6.3 Absolute Nucleated RBC 0.0 Nucleated RBC % 0.0 LA PTT Screen dRVVT Screen dRVVT Additional Test Lupus Anticoag Interp Glucose TSH Free T4 0.80 Beta-2-GPI IgG Ab Beta-2-GPI IgA Ab Beta-2-GPI IgM Ab Anti-Cardiolipin IgG Ab Anti-Cardiolipin IgA Ab Anti-Cardiolipin IgM Ab RPR CMV IgG Ab CMV IgM Ab HIV 1&2 Ab/P24 Ag 4thGn Blood Type A Positive Antibody Screen Negative KB Hemoglobin Negative Discharge Plan Discharge Attending physician on discharge: Azalea Rose Discharging Clinician: Murtaza Morin Anticipated Discharge Date/Time: 05/24/21 08:00 Patient Disposition: Home, Self-Care Activity: may shower and pelvic rest Diet: regular Discharge Instructions: Follow-Up: Call your Provider's office for an appointment to be seen in: 1
[2021-05-24] MEDS: OXYTOCIN 30 UNITS/NS 500 ML 30 UNITS/500 ML BAG 125 UNITS IV CONT (01:40)
[2021-05-24 06:14] LABS: Amphetamine Screen Urine Negative (Negative); Barbiturate Screen Urine Negative (Negative); Benzodiazepines Screen Urine Negative (Negative); Cannabinoid Screen Urine Negative (Negative); Cocaine Screen Urine Negative (Negative); Methadone Screen Urine Negative (Negative); Opiate Screen Urine Negative (Negative); Phencyclidine Screen Urine Negative (Negative)
[2021-05-24 08:30] LABS: Rapid Plasma Reagin Non-Reactive (NonReactive)
[2021-05-25 18:44] LABS: CMV IgM Antibody <30.00 AU/mL (<30.00)
[2021-05-25 20:21] LABS: Anti Cardio Antibody IgM 2.1 MPL-U/mL (<20.0); Anti Cardiolipin Antibody IgA 2.4 APL-U/mL (<20.0); Anti Cardiolipin Antibody IgG <2.0 GPL-U/mL (<20.0)
[2021-05-26 20:22] LABS: Lupus dRVVT 1:1 Mix Interpreta Not Indicated; Lupus dRVVT Screen 36 sec (<=45); PTT-LA Screen 30 sec (<=40)
[2021-05-28 14:23] LABS: CMV IgG Antibody <0.60 U/mL (<0.60)
== END 2021-05-24 08:22 | disposition home or self-care (01) | DRG 544 ==
PROVIDERS: Admitting Provider Obstetrics & Gynecology Gynecology; Visit Provider Obstetrics & Gynecology
DX: O02.1 Missed abortion (principal); Z3A.16 16 weeks gestation of pregnancy
CPT/HCPCS: 36415; 80307; 82947; 84439; 84443; 85025; 85460; 85613; 85730; 86146; 86147; 86592; 86644; 86645; 86703; 86850; 86900; 86901; 88305; A9270; G0432; J2590

== ENCOUNTER 2022-08-25 12:09 | Outpatient (CLI) | payer OTHER, SELFPAY ==
[2022-08-25 16:09] LABS: Total Volume 24 Hour Urine 2200 ml
[2022-08-25 16:10] LABS: Total Volume 24 Hour Urine 2200 ml
[2022-08-25 16:19] LABS: Creatinine 24 Hour Urine 1.5 gm/24 (0.8-1.8); Creatinine Urine 68.6 mg/dL; Total Protein Urine 24 Hr 352 mg/24hr (28-141); Total Protein Urine Random 16 mg/dL
== END 2022-08-25 12:10 | disposition home or self-care (01) ==
PROVIDERS: Visit Provider Obstetrics & Gynecology
DX: O13.9 Gestational [pregnancy-induced] hypertension without significant proteinuria, unspecified trimester (principal); Z3A.00 Weeks of gestation of pregnancy not specified
CPT/HCPCS: 81050; 82570; 84156

== ENCOUNTER 2022-11-09 17:58 | Observation (INO) | payer OTHER, SELFPAY ==
--- NOTE | ~2022-11-09 | US_ITS ---
EXAMINATION: US OB limited, US OB transvaginal DATE: 11/09/2022 19:38 INDICATION: Placental and cervical length assessment during second trimester TECHNIQUE: Real-time ultrasound of the pelvis was performed. The interpreting radiologist was not pre sent for the study. COMPARISON: None. FINDINGS: There is a single living fetus in breech presentation. The placenta is anterior and 5.8 cm from the internal cervical os. The cervical length is 4.9 cm. cardiac activity and moveme nt are noted. heart rate is 158 beats per minute (bpm). The amniotic fluid index is subjectivel y normal. IMPRESSION: 1. Single living fetus in breech presentation. 2. Anterior placenta 5.8 cm from the internal cervical os. 3. Cervical length is 4.9 cm Reviewed, dictated and finalized at location F. IMPRESSION: 1. Single living fetus in breech presentation. 2. Anterior placenta 5.8 cm from the internal cervical os. 3. Cervical length is 4.9 cm
[2022-11-09 18:15] VITALS: BP 116/66; PULSE 103
[2022-11-09 18:47] VITALS: BMI 29.1
--- NOTE | 2022-11-09 18:50 | PC.NURSE ---
1824 Dr. Arthur notified of patient status, instructed to order ultrasound for cervical length and placental check.
--- NOTE | 2022-11-09 18:52 | PC.NURSE ---
1758 pt presents to L&D with complaints of N/V and abdominal pain. pt states she vomited 3 times yesterday and the round ligament pain has been happening for weeks but got more intense 11/08/2022 at 1700. states the pain comes and goes and is worse when she first wakes up. states she has no vaginal bleeding, no leaking of fluid, and has positive movement. FHT doppled in the 150's. pt states she has only drank some water and soda today and has not eaten anything. pt states she is not currently having any pain. pt states she is not nauseous right now and has not vomited since 1000. abdomen palpates soft with no complaints of pain. pain does not radiate to the back or sides when it happens. pt denies any headache, dizziness, blurred vision, or any other symptoms.
--- NOTE | 2022-11-09 19:30 | PC.NURSE ---
1920 pt off unit to ultrasound.
--- NOTE | 2022-11-09 20:21 | PC.NURSE ---
Dr. Arthur notified of US results and instructed to send pt home
--- NOTE | 2022-11-14 06:12 | PM.OBTRLD ---
OB - Triage/Final Diagnosis Visit Information Reason for evaluation: threatened labor Comments/Additional reasons for admission: I have assessed the risk for this patient, Stardenilson Mitchell, and determined that she would benefit from observation care.
== END 2022-11-09 20:33 | disposition home or self-care (01) ==
PROVIDERS: Admitting Provider Obstetrics & Gynecology; Visit Provider Obstetrics & Gynecology
DX: O47.02 False labor before 37 completed weeks of gestation, second trimester (principal); Z3A.20 20 weeks gestation of pregnancy
CPT/HCPCS: 76815; 76817; G0378; G0379

== ENCOUNTER 2022-12-25 10:13 | Outpatient (CLI) | payer OTHER, SELFPAY ==
--- NOTE | 2022-12-25 10:29 | PC.NURSE ---
pt came in with complaints of decreased movement. While RN was hooking the pt up, the pt reports having elevated blood pressures 140/100s the last few days at home. Pt also report seeing spots x3 on Saturday as well as decreased urine output. Pt reports having preeclampsia with her first .
[2022-12-25 11:16] VITALS: BP 108/65; PULSE 87
[2022-12-25 11:29] LABS: Basophils Absolute Auto 0.1 K/mm3 (0.0-0.1); Basophils Percent Auto 0.7 % (0.2-1.2); Eosinophils Absolute Auto 0.1 K/mm3 (0-0.3); Eosinophils Percent Auto 0.9 % (0-4.4); Hematocrit 32.5 % (37.0-47.0); Hemoglobin 10.9 g/dL (12.0-15.0); Immature Granulocyte Absolute 0.13 K/mm3 (0.00-0.031); Immature Granulocyte Percent A 1.5 % (0-0.5); Lymphocytes Absolute Auto 1.66 K/mm3 (0.9-3.2); Lymphocytes Percent Auto 18.9 % (18.3-44.2); Mean Corpuscular HGB Conc 33.5 g/dl (32-36); Mean Corpuscular Hemoglobin 29.1 pg (26-34); Mean Corpuscular Volume 86.9 fl (80-100); Mean Platelet Volume 9.1 fl (7.4-10.4); Monocytes Absolute Auto 0.7 K/mm3 (0.1-0.6); Monocytes Percent Auto 7.5 % (2.6-8.5); Neutrophils Absolute Auto 6.2 K/mm3 (1.3-6.7); Neutrophils Percent Auto 70.5 % (45.5-73.1); Platelet Count Result 229 k/mm3 (150-375); Red Blood Count 3.74 M/mm3 (4.2-5.4); Red Cell Distribution Width 13.2 % (11.5-14.5); White Blood Count 8.8 K/mm3 (4.5-10.0)
[2022-12-25 11:37] LABS: Alanine Aminotransferase 13 U/L (6-35); Albumin Level 3.2 g/dL (3.5-5.1); Alkaline Phosphatase 90 U/L (38-126); Anion Gap 3 mmol/L (8-16); Aspartate Amino Transferase 19 U/L (14-36); Bilirubin,Total 0.3 mg/dL (0.2-1.3); Blood Urea Nitrogen 4 mg/dL (7-17); Calcium 8.3 mg/dL (8.4-10.2); Carbon Dioxide 25 mmol/L (22-30); Chloride 107 mmol/L (98-107); Estimated Glomerular Filt Rate > 60; Glucose 83 mg/dL (65-110); Potassium 3.7 mmol/L (3.4-5.0); Sodium 135 mmol/L (137-145); Uric Acid 3.5 mg/dL (2.5-7.5)
[2022-12-25 11:58] LABS: Appearance Urine Clear (Clear); Bilirubin Urine Negative (Negative); Blood Urine Negative (Negative); Color Urine Yellow (Yellow); Glucose Urine UA Negative (Negative); Ketones Urine Negative (Negative); Leukocyte Esterase Ur Negative LEU/UL (NEGATIVE); Nitrate Urine Negative (Negative); Protein Urine Negative (Negative); Specific Grav Ur 1.004 (1.001-1.035); Urobilinogen Urine 0.2 mg/dL (<2.0); pH Urine 7.5 (5.0-9.0)
[2022-12-25 11:59] VITALS: BP 108/65; PULSE 87
[2022-12-25 12:02] LABS: Creatinine Urine 19.4 mg/dL; Total Protein Urine Random 14 mg/dL; Ur Ttl Prot Creatinine Ratio 0.72 mg/mg (0-0.20)
[2022-12-25 12:16] LABS: Add Urine Microscopic? NO
== END 2022-12-25 12:01 | disposition home or self-care (01) ==
LOC: ANHOBOP 11:11 → ANHLDR 11:12
PROVIDERS: Visit Provider Obstetrics & Gynecology
DX: O36.8190 Decreased fetal movements, unspecified trimester, not applicable or unspecified (principal); Z3A.00 Weeks of gestation of pregnancy not specified
CPT/HCPCS: 36415; 59025; 80053; 81003; 82570; 84156; 84550; 85025; 87086; 99199

== ENCOUNTER 2023-02-13 14:01 | Observation (INO) | payer OTHER, SELFPAY ==
[2023-02-13] VITALS (17 sets, daily range): BP systolic 59–132; BP diastolic 48–84; PULSE 69–120; BMI 33.3
--- NOTE | 2023-02-13 14:32 | PC.NURSE ---
Dr. Beebe ( who is covering for Dr. Jazlyn Arciniega and Dr. Rodriguez) informed of pt's arrival with c/o increased BP's at home- 130's/80's and occasional star in vision. Also discussed contractions, pt hx of previous C/S, and preeclampsia with 1st . Orders received. If PO hydration doesn't space contractions out, pt may have Procardia 10 mg po.
--- NOTE | 2023-02-13 14:45 | OBADM ---
This patient, Star Mitchell, admitted to the OB room 116 for observation. Patient/family oriented to hospital policies and general routines including ID bracelet, bed and alarms, visiting hours, pain management, procedures, bathroom and other care routines, personal items, smoking policy, room service/diet, and visiting hours. Patient/Family are encouraged to report perceived risks to care and to ask questions if they do not understand what they are told or what they should do.
[2023-02-13 15:07] LABS: Basophils Percent Auto 0.3 % (0.2-1.2); Eosinophils Absolute Auto 0.1 K/mm3 (0-0.3); Eosinophils Percent Auto 0.7 % (0-4.4); Hematocrit 35.9 % (37.0-47.0); Hemoglobin 11.6 g/dL (12.0-15.0); Immature Granulocyte Absolute 0.07 K/mm3 (0.00-0.031); Immature Granulocyte Percent A 0.8 % (0-0.5); Lymphocytes Absolute Auto 1.76 K/mm3 (0.9-3.2); Lymphocytes Percent Auto 19.2 % (18.3-44.2); Mean Corpuscular HGB Conc 32.3 g/dl (32-36); Mean Corpuscular Hemoglobin 28.1 pg (26-34); Mean Corpuscular Volume 86.9 fl (80-100); Mean Platelet Volume 9.8 fl (7.4-10.4); Monocytes Absolute Auto 0.7 K/mm3 (0.1-0.6); Monocytes Percent Auto 7.5 % (2.6-8.5); Neutrophils Absolute Auto 6.6 K/mm3 (1.3-6.7); Neutrophils Percent Auto 71.5 % (45.5-73.1); Platelet Count Result 259 k/mm3 (150-375); Red Blood Count 4.13 M/mm3 (4.2-5.4); Red Cell Distribution Width 13.3 % (11.5-14.5); White Blood Count 9.2 K/mm3 (4.5-10.0)
[2023-02-13 15:10] LABS: Appearance Urine Clear (Clear); Bilirubin Urine Negative (Negative); Blood Urine Negative (Negative); Color Urine Yellow (Yellow); Glucose Urine UA Negative (Negative); Ketones Urine Negative (Negative); Leukocyte Esterase Ur Negative LEU/UL (Negative); Nitrate Urine Negative (Negative); Protein Urine Negative (Negative); Specific Grav Ur 1.009 (1.001-1.035); Urobilinogen Urine 0.2 mg/dL (<2.0)
[2023-02-13] MEDS: NIFEdipine 10 MG CAPSULE PO ×2 (15:13→16:43)
[2023-02-13 15:14] LABS: Add Urine Microscopic? NO
[2023-02-13 15:25] LABS: Alanine Aminotransferase 16 U/L (6-35); Albumin Level 3.4 g/dL (3.5-5.1); Alkaline Phosphatase 140 U/L (38-126); Anion Gap 4 mmol/L (8-16); Aspartate Amino Transferase 27 U/L (14-36); Bilirubin,Total 0.3 mg/dL (0.2-1.3); Blood Urea Nitrogen 10 mg/dL (7-17); Calcium 9.2 mg/dL (8.4-10.2); Carbon Dioxide 27 mmol/L (22-30); Chloride 104 mmol/L (98-107); Estimated Glomerular Filt Rate > 60; Glucose 79 mg/dL (65-110); Potassium 4.1 mmol/L (3.4-5.0); Sodium 135 mmol/L (137-145); Uric Acid 3.9 mg/dL (2.5-7.5)
[2023-02-13 16:04] LABS: Creatinine Urine 27.7 mg/dL; Total Protein Urine Random 14 mg/dL; Ur Ttl Prot Creatinine Ratio 0.51 mg/mg (0-0.20)
--- NOTE | 2023-02-13 19:22 | PC.NURSE ---
This RN called Dr. Beebe at [phone] and he stated we could dc the patient. Patient given pre term labor instructions upon time of dc and instructions of when to come back in.
--- NOTE | 2023-03-07 08:38 | P.PNOB_ITS ---
OB - Triage/Final Diagnosis Visit Information Comments/Additional reasons for admission: I have assessed the risk for this patient, Star Mitchell, and determined that she would benefit from observation care. Evaluation Laboratory results: Laboratory Tests 02/13/23 14:51 WBC 9.2 RBC 4.13 L Hgb 11.6 L Hct 35.9 L MCV 86.9 MCH 28.1 MCHC 32.3 RDW 13.3 Plt Count 259 MPV 9.8 Immature Gran % (Auto) 0.8 H Neut % (Auto) 71.5 Lymph % (Auto) 19.2 [place] % (Auto) 7.5 Eos % (Auto) 0.7 Baso % (Auto) 0.3 Lymph # (Auto) 1.76 [place] # (Auto) 0.7 H Eos # (Auto) 0.1 Baso # (Auto) 0.0 Abs Immat Gran (auto) 0.07 H Absolute Neuts (auto) 6.6 Absolute Nucleated RBC 0.0 Nucleated RBC % 0.0 Sodium 135 L Potassium 4.1 Chloride 104 Carbon Dioxide 27 Anion Gap 4 L BUN 10 D Creatinine 0.70 Estim Creat Clear Calc Not Reportable Estimated GFR > 60 Glucose 79 Uric Acid 3.9 Calcium 9.2 Total Bilirubin 0.3 AST 27 ALT 16 Alkaline Phosphatase 140 H Total Protein 6.0 L Albumin 3.4 L Urine Color Yellow Urine Appearance Clear Urine pH 7.0 Ur Specific [place] 1.009 Urine Protein Negative Urine Glucose (UA) Negative Urine Ketones Negative Ur Blood (Man) Negative Urine Nitrate Negative Urine Bilirubin Negative Urine Urobilinogen 0.2 Leukocyte Esterase Rfl Negative U Random Total Protein 14 Urine Creatinine 27.7 Protein/Creat Ratio 2 0.51 H Final Diagnosis (1) False labor: Code(s): O47.9 - False labor, unspecified Status: Acute
== END 2023-02-13 19:10 | disposition home or self-care (01) ==
LOC: ANHOBOP 14:43 → ANHOBPP 14:44
PROVIDERS: Admitting Provider Obstetrics & Gynecology; Visit Provider Obstetrics & Gynecology
DX: O47.03 False labor before 37 completed weeks of gestation, third trimester (principal); Z3A.34 34 weeks gestation of pregnancy
CPT/HCPCS: 36415; 80053; 81003; 82570; 84156; 84550; 85025; A9270; G0378; G0379

== ENCOUNTER 2023-02-14 16:37 | Outpatient (NON) | payer OTHER, SELFPAY ==
[2023-02-14 16:37] VITALS: BMI 33.3
[2023-02-14 17:10] LABS: Collection Time Urine 24 HOURS
[2023-02-14 17:15] LABS: Total Volume 24 Hour Urine 3600 ml
[2023-02-14 17:16] LABS: Patient Weight 176 Lbs
[2023-02-14 17:16] LABS: Total Volume 24 Hour Urine 3600 ml
[2023-02-14 17:30] LABS: Total Protein Urine Random 14 mg/dL
[2023-02-14 17:31] LABS: Creatinine Clearance Urine 151.8 ml/min (75-125); Creatinine Urine 43.8 mg/dL
[2023-02-14 17:39] LABS: Total Protein Urine 24 Hr 504 mg/24hr (28-141)
== END 2023-02-14 16:38 | disposition home or self-care (01) ==
LOC: ANHOBOP 16:46
PROVIDERS: Obstetrics & Gynecology; Visit Provider Obstetrics & Gynecology
DX: Z34.90 Encounter for supervision of normal pregnancy, unspecified, unspecified trimester (principal); Z3A.00 Weeks of gestation of pregnancy not specified
CPT/HCPCS: 81050; 82575; 84156

== ENCOUNTER 2023-02-25 10:29 | Outpatient (RCR) | payer OTHER, SELFPAY ==
[2023-02-25 11:11] VITALS: BP 125/78; PULSE 74
--- NOTE | 2023-02-25 11:18 | PC.NURSE ---
1110: Dr. Jazlyn Arciniega responded to page. RN informed OB of and maternal status. RN also reported that patient is marking plenty of movement and patient is having occasional contractions, orders to discharge patient home with instructions on when to return to the hospital.
== END 2023-03-11 13:08 | disposition home or self-care (01) ==
LOC: ANHOBOP 10:29
PROVIDERS: Visit Provider Obstetrics & Gynecology
DX: O36.8190 Decreased fetal movements, unspecified trimester, not applicable or unspecified (principal)
CPT/HCPCS: 59025

== ENCOUNTER 2023-03-01 18:40 | Outpatient (CLI) | payer OTHER, SELFPAY ==
[2023-03-01] VITALS (12 sets, daily range): BP systolic 125–136; BP diastolic 79–86; PULSE 69–85
[2023-03-01 20:10] LABS: Basophils Percent Auto 0.5 % (0.2-1.2); Eosinophils Absolute Auto 0.1 K/mm3 (0-0.3); Eosinophils Percent Auto 0.7 % (0-4.4); Hematocrit 38.1 % (37.0-47.0); Hemoglobin 12.5 g/dL (12.0-15.0); Immature Granulocyte Absolute 0.04 K/mm3 (0.00-0.031); Immature Granulocyte Percent A 0.5 % (0-0.5); Lymphocytes Percent Auto 26.9 % (18.3-44.2); Mean Corpuscular HGB Conc 32.8 g/dl (32-36); Mean Corpuscular Hemoglobin 27.6 pg (26-34); Mean Corpuscular Volume 84.1 fl (80-100); Mean Platelet Volume 9.8 fl (7.4-10.4); Monocytes Absolute Auto 0.6 K/mm3 (0.1-0.6); Neutrophils Absolute Auto 5.3 K/mm3 (1.3-6.7); Neutrophils Percent Auto 64.4 % (45.5-73.1); Platelet Count Result 234 k/mm3 (150-375); Red Blood Count 4.53 M/mm3 (4.2-5.4); Red Cell Distribution Width 13.3 % (11.5-14.5); White Blood Count 8.2 K/mm3 (4.5-10.0)
[2023-03-01 20:10] LABS: Appearance Urine Clear (Clear); Bilirubin Urine Negative (Negative); Blood Urine Negative (Negative); Color Urine Yellow (Yellow); Glucose Urine UA Negative (Negative); Ketones Urine Negative (Negative); Leukocyte Esterase Ur Negative LEU/UL (NEGATIVE); Nitrate Urine Negative (Negative); Protein Urine Negative (Negative); Specific Grav Ur 1.005 (1.001-1.035); Urobilinogen Urine 0.2 mg/dL (<2.0); pH Urine 6.5 (5.0-9.0)
[2023-03-01 20:22] LABS: Alanine Aminotransferase 16 U/L (6-35); Albumin Level 3.6 g/dL (3.5-5.1); Alkaline Phosphatase 169 U/L (38-126); Anion Gap 8 mmol/L (8-16); Aspartate Amino Transferase 25 U/L (14-36); Bilirubin,Total 0.4 mg/dL (0.2-1.3); Blood Urea Nitrogen 11 mg/dL (7-17); Calcium 8.9 mg/dL (8.4-10.2); Carbon Dioxide 21 mmol/L (22-30); Chloride 105 mmol/L (98-107); Estimated Glomerular Filt Rate > 60; Glucose 87 mg/dL (65-110); Potassium 3.9 mmol/L (3.4-5.0); Sodium 134 mmol/L (137-145); Uric Acid 5.4 mg/dL (2.5-7.5)
[2023-03-01 20:27] LABS: Add Urine Microscopic? NO
[2023-03-01 20:52] LABS: Creatinine Urine 26.1 mg/dL; Total Protein Urine Random 21 mg/dL
== END 2023-03-01 22:05 | disposition home or self-care (01) ==
LOC: ANHOBOP 18:45 → ANHLDR 18:46
PROVIDERS: Obstetrics & Gynecology; Visit Provider Obstetrics & Gynecology
DX: O13.9 Gestational [pregnancy-induced] hypertension without significant proteinuria, unspecified trimester (principal); Z3A.00 Weeks of gestation of pregnancy not specified
CPT/HCPCS: 36415; 80053; 81003; 82570; 84112; 84156; 84550; 85025; 87086; 99199

== ENCOUNTER 2023-03-04 11:06 | Inpatient (IN) | payer OTHER, SELFPAY ==
[2023-03-04] VITALS (45 sets, daily range): BP systolic 97–142; BP diastolic 54–94; PULSE 60–87; RESP 16–18; TEMP 36.1–37.4; O2SAT 97–100; BMI 32.9
--- NOTE | 2023-03-04 11:27 | PM.IMHP ---
H&P: HPI History of Present Illness Date/Time: 03/04/23 11:27 Chief Complaint: Rupture of membranes at term Narrative: This is a 27-year-old multiparous patient whose last menstrual period was 06/10/2022 EDC of 03/23/2023, confirmed by 9 week ultrasound presents at 37 weeks gestation with rupture membranes. She has had previous section x2. She desires permanent sterilization has signed the ID [place] sterilization form. She will undergo repeat section and tubal ligation. Permanence and irreversibility were reviewed versus other alternatives including pills patches works etc. PMF Past Medical History Medical History Diabetes in IUFD at less than 20 weeks of gestation contractions Surgical History Surgical History History of section S/P 2015 complicated by Preeclampsia and GDMA1 C/section for nonreassuring status S/P laparoscopy 2013 Dx endometriosis Family History Family History Mother No problems noted. Grandparent Diabetes mellitus Other No pertinent family history Social History Social History Smoking status: Never smoker Second hand tobacco smoke exposure: No Substance use: never Gender identity (if verbalized by the patient): Female Sexual Orientation (if Verbalized by the Patient): Straight or Heterosexual Spiritual care concerns: No Meds Home Medications and Allergies Home Medications Medication Instructions Recorded Confirmed Type ascorbic acid (vitamin C) 500 mg 500 mg PO DAILY 02/13/23 02/13/23 History tablet (Vitamin C) magnesium 200 mg tablet 200 mg PO DAILY 02/13/23 02/13/23 History vit H67-jsrpmbmyw factor-folic 1 tablet PO DAILY 02/13/23 02/13/23 History acid cmb#2 500 mcg-20 mg-800 mcg tablet (Intrinsi A83-[id number]) vitamin B complex (B 1 tablet PO DAILY 02/13/23 02/13/23 History Complex-Vitamin B12 tablet) Allergies Allergy/AdvReac Type Severity Reaction Status Date / Time No Known Allergies Allergy Verified 02/05/20 15:31 Exam Const: General: cooperative, healthy appearing, comfortable and average body habitus Orientation/consciousness: oriented to person, oriented to place and oriented to time HENMT: Head: normal to inspection Resp: Effort & Inspection: normal respiratory effort Cardio: Rate: regular rate Rhythm: regular rhythm Heart sounds: S1 normal heart sound present and S2 normal heart sound present GI: Inspection: normal to inspection (Gravid soft uterus) : External Female Exam: normal external appearance Speculum Exam - Vagina: normal appearance of the vagina Speculum Exam - Cervix: normal appearance of the cervix (Clear fluid is seen) Assessment and Plan Assessment and plan (1) Term : Code(s): Z34.90 - Encounter for supervision of normal , unspecified, unspecified trimester Status: Acute (2) Spontaneous rupture of membranes: Status: Acute (3) Sterilization: Code(s): Z30.2 - Encounter for sterilization Status: Acute Plan Repeat section with bilateral tubal ligation.
--- NOTE | 2023-03-04 11:31 | WPDHPUPDATE1 ---
History and Physical Update Update Date/Time: 03/04/23 11:31 History and Physical has been reviewed, including an updated exam of the patient. There are NO changes in the patient's condition. Risks, benefits, and alternatives have been discussed and questions answered. Patient agrees to proceed with procedure.
--- NOTE | 2023-03-04 11:33 | LDADM ---
This patient, Star Mitchell, was admitted to Labor/Delivery/Recovery 120 on 03/04/23 at 11:06. Plans for labor, pain management and were discussed with patient. Patient/family oriented to hospital policies and general routines including ID bracelet, bed and alarms, visiting hours, pain management, procedures, bathroom and other care routines, personal items, smoking policy, room service/diet and guest tray routines, security routines, and visiting hours. Patient/Family are encouraged to report perceived risks to care and to ask questions if they do not understand what they are told or what they should do. See OBIX for further documentation.
--- NOTE | 2023-03-04 11:38 | WPDHPUPDATE1 ---
History and Physical Update Update Date/Time: 03/04/23 11:38 History and Physical has been reviewed, including an updated exam of the patient. There are NO changes in the patient's condition. Risks, benefits, and alternatives have been discussed and questions answered. Patient agrees to proceed with procedure. Is now decided not to have tubal ligation
[2023-03-04] MEDS: LACTATED RINGERS 1,000 ML 125 ML IV CONT (11:50)
[2023-03-04 11:51] LABS: Basophils Absolute Auto 0.1 K/mm3 (0.0-0.1); Basophils Percent Auto 0.8 % (0.2-1.2); Eosinophils Absolute Auto 0.1 K/mm3 (0-0.3); Eosinophils Percent Auto 0.8 % (0-4.4); Hematocrit 38.9 % (37.0-47.0); Hemoglobin 12.6 g/dL (12.0-15.0); Immature Granulocyte Absolute 0.05 K/mm3 (0.00-0.031); Immature Granulocyte Percent A 0.8 % (0-0.5); Lymphocytes Percent Auto 22.8 % (18.3-44.2); Mean Corpuscular HGB Conc 32.4 g/dl (32-36); Mean Corpuscular Hemoglobin 27.1 pg (26-34); Mean Corpuscular Volume 83.7 fl (80-100); Mean Platelet Volume 9.7 fl (7.4-10.4); Monocytes Absolute Auto 0.5 K/mm3 (0.1-0.6); Monocytes Percent Auto 7.3 % (2.6-8.5); Neutrophils Absolute Auto 4.5 K/mm3 (1.3-6.7); Neutrophils Percent Auto 67.5 % (45.5-73.1); Platelet Count Result 240 k/mm3 (150-375); Red Blood Count 4.65 M/mm3 (4.2-5.4); Red Cell Distribution Width 13.4 % (11.5-14.5); White Blood Count 6.6 K/mm3 (4.5-10.0)
--- NOTE | 2023-03-04 12:00 | WPDANESEPPF ---
Anes - Initial Pre Proc Eval Procedure: Operation Date: 03/18/23 12:00 Proposed Procedures p Repeat Section With Tubal Ligation - Tyler Arciniega MD Date/Time: 03/04/23 12:00 Surgeon: Tyler Aricniega MD Pre Op Diagnosis: previous c section, desired sterlization Patient Data Age: 27 Gender: F Height: 1.55 m Weight: 79 kg Last Vital Signs Pulse 87 03/04/23 11:53 BP 130/87 03/04/23 11:53 O2 Del Method Room Air 03/04/23 11:32 Allergies Allergy/AdvReac Type Severity Reaction Status Date / Time No Known Allergies Allergy Verified 02/05/20 15:31 Home Medications Medication Instructions Recorded Confirmed Type vits no.126-ferrous fum 1 tablet 03/04/23 History 28 mg iron-folic acid 800 mcg tablet (Classic ) Laboratory Tests 03/04/23 11:42 WBC Pending RBC Pending Hgb Pending Hct Pending MCV Pending MCH Pending MCHC Pending RDW Pending Plt Count Pending MPV Pending Immature Gran % (Auto) Pending Neut % (Auto) Pending Lymph % (Auto) Pending [place] % (Auto) Pending Eos % (Auto) Pending Baso % (Auto) Pending Lymph # (Auto) Pending [place] # (Auto) Pending Eos # (Auto) Pending Baso # (Auto) Pending Abs Immat Gran (auto) Pending Absolute Neuts (auto) Pending Absolute Nucleated RBC Pending Nucleated RBC % Pending RPR Pending Patient hx anesthesia problems: none Family hx anesthesia problems: none Results Review: All pre-operative results and documents have been reviewed as part of the pre-operative evaluation. [facility] Past Medical History Medical History Diabetes in IUFD at less than 20 weeks of gestation contractions Surgical History Surgical History History of section S/P 2015 complicated by Preeclampsia and GDMA1 C/section for nonreassuring status S/P laparoscopy 2013 Dx endometriosis Family History Family History Mother No problems noted. Grandparent Diabetes mellitus Other No pertinent family history Social History Social History Smoking status: Never smoker Second hand tobacco smoke exposure: No Substance use: never Lack of Transportation: No Lack of Food: Never True Current Housing: I Have Housing Concerned About Future Housing: No Difficulty Paying Gas/Electric Bills: No Difficulty Paying for Meds: No Currently Unemployed: No Education: High School Diploma/GED Difficulty w/ Childcare or Family Care: No Gender identity (if verbalized by the patient): Female Sexual Orientation (if Verbalized by the Patient): Straight or Heterosexual Spiritual care concerns: No Anes - Eval Final PreProcedure Day of Procedure 03/04/23 12:00 Patient weight: overweight Heart: regular rate and rhythm Lungs: clear to auscultation Airway: Mallampati scale class II Neurological: alert and oriented Last oral intake: >/= 8 hours ASA classification: II Emergent: no Anesthetic plan: proceed Anesthesia type and monitoring: regional spinal and standard monitoring Results Review: All pre-operative results and documents have been reviewed as part of the pre-operative evaluation. Informed Consent: The patient's anesthetic plan and its attendant risks and benefits were discussed with the patient/family/POA. Questions were solicited and answers provided to the satisfaction of the patient/family/POA.
[2023-03-04] MEDS: ceFAZolin 2 GM/D5W 50 ML 2 GM/50 ML BAG IVPB (12:15)
[2023-03-04] MEDS: KETOROLAC 30 MG/ML VIAL (*BKC) 15 MG IV PUSH (12:53)
--- NOTE | 2023-03-04 12:55 | W.PM.PROC2 ---
Procedure Note - Detailed Date of Procedure 03/04/23 Pre-op Diagnosis previous c section, Post-op Diagnosis Same Procedure Performed Repeat low-transverse section Surgeon Tyler Arciniega MD Anesthesia Spinal Indications this is 27 year female with previous section with rupture membranes at 37 weeks gestation Findings 6lb 13oz f male with Apgars of of 8 9 at 1 and 5minute respectively Description of Procedure patient was prepped draped in normal sterile fashion placed in the supine position. Under excellent spinal anesthetic the abdomen was entered in Pfannenstiel fashion progressive layers of fascia. Fascia incised in upward outward fashion bilaterally. Underlying muscles sharply dissected. Parietal peritoneum mm by Nithya clamps and by sharp dissection. This was carried superiorly and inferiorly the dome of the bladder. Bladder bladder formed and a bladder blade placed. Low-transverse incision made the head delivered in the MALICK position. Anterior posterior shoulder delivered spontaneously. Cord clamped x2 and cut. Infant passed off the table given Apgars of 8 [id number] 9 [id number]. Cord blood was drawn please. Placenta delivered intact manually. Uterus delivered on the abdomen wrapped in moist towel. After assuring no membranes or debris remained in the uterus, uterus closed with continuous running 0 Vicryl from lateral edge to lateral edge followed by a 2nd imbricating running locking 0 Vicryl from lateral edge to lateral edge. Hemostasis was assured. Ovaries and tubes appeared within normal limits and the uterus returned the abdomen. The uterus returned to the abdomen. The hysterotomy incision inspected and noted be hemostatic. Laps removed and accounted for. The fascia closed with continuous running 0 Vicryl from lateral edge to lateral edge. Irrigation subcutaneous layer the skin closed with 4 Monocryl and glue. QBL was 615cc. All sponge, needle, instrument counts were correct. Mom and baby doing fine at the time of dictation Estimated Blood Loss 615 Drains No Packing No Pathology None sent Complications No immediate complications Condition Stable Disposition PACU
[2023-03-04] MEDS: OXYTOCIN 30 UNITS/NS 500 ML 30 UNITS/500 ML BAG 125 UNITS IV CONT (14:00)
--- NOTE | 2023-03-04 15:30 | PC.NURSE ---
Patient transferred to post room #280 via stretcher. Support person present. Oriented to unit, room, information board, rooming in, admission packet and security measures. Patient verbalizes understanding.
[2023-03-04 15:50] LABS: Rapid Plasma Reagin Non-Reactive (NonReactive)
[2023-03-04] MEDS: ONDANSETRON INJ 4 MG/2 ML VIAL IV PUSH (23:04)
[2023-03-05 03:30] VITALS: BP 130/88; PULSE 68; RESP 16; TEMP 36.7; O2SAT 100
[2023-03-05 04:03] LABS: Basophils Percent Auto 0.2 % (0.2-1.2); Hematocrit 32.4 % (37.0-47.0); Hemoglobin 10.2 g/dL (12.0-15.0); Immature Granulocyte Absolute 0.09 K/mm3 (0.00-0.031); Immature Granulocyte Percent A 0.6 % (0-0.5); Lymphocytes Absolute Auto 1.54 K/mm3 (0.9-3.2); Lymphocytes Percent Auto 9.5 % (18.3-44.2); Mean Corpuscular HGB Conc 31.5 g/dl (32-36); Mean Corpuscular Hemoglobin 27.2 pg (26-34); Mean Corpuscular Volume 86.4 fl (80-100); Monocytes Absolute Auto 1.5 K/mm3 (0.1-0.6); Neutrophils Percent Auto 80.7 % (45.5-73.1); Platelet Count Result 202 k/mm3 (150-375); Red Blood Count 3.75 M/mm3 (4.2-5.4); Red Cell Distribution Width 13.5 % (11.5-14.5); White Blood Count 16.1 K/mm3 (4.5-10.0)
--- NOTE | 2023-03-05 06:11 | PM.OBPNVD ---
OB - PN: Subj Subjective Date/time seen: 03/05/23 06:11 Patient comments: no complaints and pain well controlled baby status: doing well OB - PN: Obj Data Labs 03/05/23 03:37 Labs: Laboratory Results - last 24 hr 03/04/23 03/05/23 11:42 03:37 WBC 6.6 16.1 H RBC 4.65 3.75 L Hgb 12.6 10.2 L Hct 38.9 32.4 L MCV 83.7 86.4 MCH 27.1 27.2 MCHC 32.4 31.5 L RDW 13.4 13.5 Plt Count 240 202 MPV 9.7 10.0 Immature Gran % (Auto) 0.8 H 0.6 H Neut % (Auto) 67.5 80.7 H Lymph % (Auto) 22.8 9.5 L [place] % (Auto) 7.3 9.0 H Eos % (Auto) 0.8 0.0 Baso % (Auto) 0.8 0.2 Lymph # (Auto) 1.50 1.54 [place] # (Auto) 0.5 1.5 H Eos # (Auto) 0.1 0.0 Baso # (Auto) 0.1 0.0 Abs Immat Gran (auto) 0.05 H 0.09 H Absolute Neuts (auto) 4.5 13.0 H Absolute Nucleated RBC 0.0 0.0 Nucleated RBC % 0.0 0.0 RPR Non-reactive Blood Type A Positive Antibody Screen Negative OB - PN A/P Plan day: 1 Plan: routine care Time Spent With Patient Time: Total time spent is greater than 50% in coordination of care (as documented) at patient's floor/unit and/or counseling patient: Time with patient: less than 15 minutes Exam Const: General: cooperative, healthy appearing and comfortable Nutritional Appearance: average body habitus Orientation/consciousness: oriented to person, oriented to place and oriented to time HENMT: Head: normal to inspection Resp: Effort & Inspection: normal respiratory effort Cardio: Rate: regular rate Rhythm: regular rhythm Heart sounds: S1 normal heart sound present and S2 normal heart sound present GI: Inspection: normal to inspection
[2023-03-05 07:30] VITALS: BP 125/79; PULSE 78; RESP 18; TEMP 37.4; O2SAT 100
[2023-03-05] MEDS: DOCUSATE SODIUM 100 MG CAPSULE PO ×2 (07:35→15:48)
[2023-03-05] MEDS: MULTIVIT/MIN/PREN/FOL AC/IRON TABLET 1 TAB PO (07:44)
--- NOTE | 2023-03-05 07:51 | PM.DS ---
DS: Admitting Diagnosis Discharge Date 03/06/23 Admitting Diagnosis term / positive group B strep DS: Discharge Diagnosis Discharge Diagnosis (1) Spontaneous rupture of membranes: Status: Acute (2) Term : Code(s): Z34.90 - Encounter for supervision of normal , unspecified, unspecified trimester Status: Acute DS: Summary Hospital Course Reason for hospitalization: patient was admitted in active labor term Hospital Course: patient with spontaneous vaginal delivery on 03/04/2023. She received 1 dose of ampicillin. Hospital course remarkable. She remained afebrile. She was up, voiding without difficulty, eating regular diet, ambulating, generally without complaints. Time Spent with Patient Time attestation: Total time spent providing and/or coordinating discharge services: Exam Const: General: cooperative, healthy appearing and comfortable Nutritional Appearance: average body habitus Orientation/consciousness: oriented to person, oriented to place and oriented to time HENMT: Head: normal to inspection Resp: Effort & Inspection: normal respiratory effort Cardio: Rate: regular rate Rhythm: regular rhythm Heart sounds: S1 normal heart sound present and S2 normal heart sound present GI: Inspection: normal to inspection ( Fundus firm below the umbilicus) DS: Data Data Completed and Pending Labs on day of discharge: Labs from last 24 hours 03/05/23 03/04/23 03:37 11:42 WBC 16.1 H 6.6 RBC 3.75 L 4.65 Hgb 10.2 L 12.6 Hct 32.4 L 38.9 MCV 86.4 83.7 MCH 27.2 27.1 MCHC 31.5 L 32.4 RDW 13.5 13.4 Plt Count 202 240 MPV 10.0 9.7 Immature Gran % (Auto) 0.6 H 0.8 H Neut % (Auto) 80.7 H 67.5 Lymph % (Auto) 9.5 L 22.8 [place] % (Auto) 9.0 H 7.3 Eos % (Auto) 0.0 0.8 Baso % (Auto) 0.2 0.8 Lymph # (Auto) 1.54 1.50 [place] # (Auto) 1.5 H 0.5 Eos # (Auto) 0.0 0.1 Baso # (Auto) 0.0 0.1 Abs Immat Gran (auto) 0.09 H 0.05 H Absolute Neuts (auto) 13.0 H 4.5 Absolute Nucleated RBC 0.0 0.0 Nucleated RBC % 0.0 0.0 RPR Non-reactive Blood Type A Positive Antibody Screen Negative Discharge Plan Discharge Attending physician on discharge: Tyler Ayoub Discharging Clinician: Tyler Ayoub Patient Disposition: Home, Self-Care Activity: may shower, no straining, may drive after 2 weeks and pelvic rest Diet: heart healthy Wound Care Instructions: follow printed instructions Discharge Instructions: Education: Mom and Baby Guide Given to: Mother Follow-Up: Call your delivering provider's office for an appointment to be seen in: 1 Week Mom and baby should come to the [facility] for the follow-up appointment. Appointment Date/Time: March 07, 2023 at 9:00 am What to expect at your follow-up visit: Blood Pressure Check Call [phone] if you are unable to keep your appointment time. BREAST CARE: * Wear a snug supportive bra. * For engorgement discomfort: Breast Feeding: * Apply warm moist washcloths * Express milk as needed to relieve engorgement * Wear loose clothing Bottle Feeding: * May apply ice packs * For sore nipples: * Identify correct latch-on * Apply warm moist washcloths before and after nursing * Air dry nipples after nursing * May apply Lansinoh cream to nipples ABDOMINAL INCISION: (if applicable) * Allow incision to air dry * Do NOT use lotions for powders on your incision * When showering, allow soap and water to run over the incision, but do not wash incision PERINEAL CARE: * Until bleeding stops, use your annie bottle after urinating * Change your pad frequently throughout the day * No tub baths until seen by your physician - You may shower ACTIVITY: * Rest as much as possible. * Do not exercise or lift anything heavier than your baby (such as laund
--- NOTE | 2023-03-05 08:25 | WPDANLDNPN2 ---
Anes-Prog Note L&D-Neuraxial Date/Time: 03/05/23 08:25 Patient feedback: Patient satisfied with post-operative pain management.
--- NOTE | 2023-03-05 08:25 | WPDANLDPN2 ---
Anes-Prog Note L&D Date/Time: 03/05/23 08:25 Neuro status: Neuro function grossly intact. Cardiovascular status: normal Respiratory status: normal Airway patency: baseline Mental status: baseline Post-Op hydration status: normal Vital Signs: Last Vital Signs Temp 36.7 C 03/05/23 03:30 Pulse 68 03/05/23 03:30 Resp 16 03/05/23 03:30 BP 130/88 03/05/23 03:30 Pulse Ox 100 03/05/23 03:30 O2 Del Method Room Air 03/04/23 11:32 Pain score (VAS): 0 I/O: Intake & Output 03/04/23 03/05/23 03/05/23 23:59 07:59 15:59 Intake Total 800 Output Total 325 100 Balance -325 700 Post-procedural complaints: none Patient feedback: Patient satisfied with anesthetic care.
[2023-03-05] MEDS: IBUPROFEN 600 MG TABLET PO ×2 (08:56→15:48)
[2023-03-05] MEDS: SIMETHICONE 80 MG TAB.CHEW PO ×2 (08:56→15:50)
[2023-03-05 11:53] VITALS: BP 121/78; PULSE 70; RESP 16; TEMP 37.2; O2SAT 100
--- NOTE | 2023-03-05 13:55 | PC.NURSE ---
Patient transferred to post room #281 via wheelchair. Support person present. Oriented to unit, room, information board, rooming in, admission packet and security measures. Patient verbalizes understanding.
[2023-03-05 19:30] VITALS: BP 136/80; PULSE 80; RESP 18; TEMP 36.8; O2SAT 100
[2023-03-06] MEDS: IBUPROFEN 600 MG TABLET PO ×2 (00:04→09:38)
[2023-03-06] MEDS: SIMETHICONE 80 MG TAB.CHEW PO ×2 (00:04→09:36)
--- NOTE | 2023-03-06 07:05 | PC.NURSE ---
PT introductions made and plan of care discussed per post op c section, pain management, bottle feeding, pumping, daily care activities and pending discharge to home. PT and fob both recipients of such instructions and no barriers to learning identified at this time. PT received such instructions per one to one discussion, mom baby care guide and demonstrations this shift. PT verbalized understanding of care.
--- NOTE | 2023-03-06 07:11 | PM.OBPNVD ---
OB - PN: Subj Subjective Date/time seen: 03/06/23 07:11 Patient comments: no complaints and pain well controlled baby status: doing well and nursing well OB - PN: Obj Data Labs 03/05/23 03:37 OB - PN A/P Plan day: 2 Plan: routine care, discharge home and follow up 6 weeks Time Spent With Patient Time: Total time spent is greater than 50% in coordination of care (as documented) at patient's floor/unit and/or counseling patient: Time with patient: less than 15 minutes Exam Const: General: cooperative, healthy appearing and comfortable Nutritional Appearance: average body habitus Orientation/consciousness: oriented to person, oriented to place and oriented to time Resp: Effort & Inspection: normal respiratory effort Cardio: Rate: regular rate Rhythm: regular rhythm Heart sounds: S1 normal heart sound present and S2 normal heart sound present
[2023-03-06 08:00] VITALS: BP 122/83; PULSE 75; RESP 16; TEMP 37.6; O2SAT 100
[2023-03-06] MEDS: ACETAMINOPHEN 325 MG TABLET 650 MG PO (09:36)
[2023-03-06] MEDS: DOCUSATE SODIUM 100 MG CAPSULE PO (09:36)
--- NOTE | 2023-03-06 12:00 | PC.NURSE ---
Patient was given the opportunity to view the discharge video Mother & Baby Care, The First Two Weeks and to ask questions. Patient declined viewing the video and has been given the mother/baby guide for home reference.
--- NOTE | 2023-03-06 12:30 | PC.NURSE ---
PT received discharge instructions per protocol and verbalized understanding of such care.
--- NOTE | 2023-03-06 13:27 | PC.NURSE ---
PT discharged to home ambulatory accompanied by fob and infant and walked to waiting car. follow up appts confirmed
[2023-03-07 11:46] VITALS: BP 127/83; PULSE 85; RESP 18; TEMP 37.4; O2SAT 99
== END 2023-03-06 13:27 | disposition home or self-care (01) | DRG 540 ==
LOC: ANHLDR 11:33 → ANHOB2 16:01
PROVIDERS: Admitting Provider Obstetrics & Gynecology; Visit Provider Obstetrics & Gynecology
PROC: 10D00Z1 Extraction of Products of Conception, Low, Open Approach (ICD-10-PCS; CPT 59514; principal; 2023-03-04 12:00)
DX: O34.211 Maternal care for low transverse scar from previous cesarean delivery (principal); O24.429 Gestational diabetes mellitus in childbirth, unspecified control; Z37.0 Single live birth; Z3A.37 37 weeks gestation of pregnancy; Z30.2 Encounter for sterilization
CPT/HCPCS: 36415; 85025; 86592; 86850; 86900; 86901; A9270; J0690; J1885; J2274; J2405; J2590; J7120

== ENCOUNTER 2023-10-08 08:29 | Outpatient (CLI) | payer OTHER, SELFPAY ==
[2023-10-08 09:35] LABS: Basophils Percent Auto 0.6 % (0.2-1.2); Eosinophils Absolute Auto 0.1 K/mm3 (0-0.3); Eosinophils Percent Auto 2.1 % (0-4.4); Hematocrit 44.5 % (37.0-47.0); Hemoglobin 14.4 g/dL (12.0-15.0); Immature Granulocyte Absolute 0.01 K/mm3 (0.00-0.031); Immature Granulocyte Percent A 0.2 % (0-0.5); Lymphocytes Absolute Auto 1.59 K/mm3 (0.9-3.2); Lymphocytes Percent Auto 33.9 % (18.3-44.2); Mean Corpuscular HGB Conc 32.4 g/dl (32-36); Mean Corpuscular Hemoglobin 28.4 pg (26-34); Mean Corpuscular Volume 87.8 fl (80-100); Mean Platelet Volume 8.9 fl (7.4-10.4); Monocytes Absolute Auto 0.4 K/mm3 (0.1-0.6); Monocytes Percent Auto 8.1 % (2.6-8.5); Neutrophils Absolute Auto 2.6 K/mm3 (1.3-6.7); Neutrophils Percent Auto 55.1 % (45.5-73.1); Platelet Count Result 280 k/mm3 (150-375); Red Blood Count 5.07 M/mm3 (4.2-5.4); Red Cell Distribution Width 13.2 % (11.5-14.5); White Blood Count 4.7 K/mm3 (4.5-10.0)
== END 2023-10-08 08:30 | disposition home or self-care (01) ==
LOC: ANHSURGERY 09:17
PROVIDERS: PCP Internal Medicine; Visit Provider Obstetrics & Gynecology
DX: N81.4 Uterovaginal prolapse, unspecified (principal); Z01.818 Encounter for other preprocedural examination
CPT/HCPCS: 36415; 85025; 86850; 86900; 86901

== ENCOUNTER 2023-10-11 00:55 | Day surgery (SDC) | payer OTHER, SELFPAY ==
[2023-10-03 13:21] VITALS: BMI 29.1
--- NOTE | 2023-10-03 13:28 | PC.NURSE ---
Report to the Outpatient Waiting Room, entrance under the green pavilion located off [facility], at time __0930__ on date _10/11/23_. Planned Procedure Time: _1130_. Time changes happen often and if your time is changed the preop area will call you the afternoon before. - You and your visitor will be asked to self-screen and do not enter if you have any COVID symptoms. - A mask is optional within the hospital at this time. Patients may have clear liquids (water, carbonated beverages, clear teas, apple juice) until 3 hours prior to surgery with a maximum of 20 ounces. - No food from midnight until time of surgery - Infants may have breast milk until 4 hours before surgery, infant formula 6 hours prior to surgery. - Children will be allowed to drink immediately following surgery. If applicable, please bring a bottle or sippy cup to assist with drinking. Juice, water, soda, and popsicles are readily available. For infants on formula, please bring formula the day of surgery. Pacifiers are allowed. Take the following medications with a SIP of water the morning of surgery: NONE DO NOT STOP ANY OF YOUR OTHER PRESCRIPTION MEDICATIONS PRIOR TO SURGERY ?EXCEPT THE FOLLOWING Medications to discontinue per physician VITAMINS/ SUPPLIMENTS Date to take last dose_10/08/23 Please no make-up, nail arabic, hairspray, perfume, deodorant, or body powder the day of surgery. No jewelry (including any body piercings) or valuables the day of surgery, leave them at home. Please take a shower or bath the night before, or the morning of, surgery with an antibacterial soap. Wear comfortable, loose fitting clothing. Children are encouraged to wear pajamas. - Jewelry must be removed prior to entering the operating room. Rings and piercings that are not removed may be cut off. - The hospital will not accept responsibility for valuables. - Please leave all valuables, including medications, at home the day of surgery. If you are going home after surgery, a licensed concrete pile driver operator must drive you home. - NO public transportation without another adult if you receive anesthesia. - We recommend that an adult stay with you for 24 hours following discharge. - We also recommend that you do not drive, make important decision, drink alcoholic beverages, or take any drugs that were not prescribed by your health care provider for at least 24 hours after your discharge time. For Pediatric surgeries, we recommend two adults accompany the child home. Follow any additional instructions given to you from your surgeon. If you or anyone in your household have experienced Covid symptoms in the past week, please notify your surgeon or the nurse liaison at the phone number below for possible testing. Telephone instructions given to PATIENT__and asked if any additional questions and then verbalized understanding. Patient advised to call surgeon office or pre surgery nurse liaison [phone] if any additional questions.
--- NOTE | 2023-10-09 06:58 | PM.IMHP ---
H&P: HPI History of Present Illness Date/Time: 10/09/23 06:58 Chief Complaint: pelvic pain / uterine prolapse/ excessive bleeding Narrative: 28 year admitted for robotic hysterectomy bilateral salpingectomy secondary to prolapse pain and bleeding. Patient is finished with the pregnancies. She complains of pain discomfort and dyspareunia. Prolapse is noted. To undergo robotic hysterectomy and bilateral salpingectomy. Risks and benefits reviewed including but not exclusive of , aspiration bleeding, transfusion, perforation injury to bowel, bladder, ureters, or other internal organs with need for laparotomy. She had all questions answered. She received the [employer] handout entitled hysterectomy as well as de Suraj handout. She asked to proceed PMFSH Past Medical History Medical History Diabetes in IUFD at less than 20 weeks of gestation contractions Prolapsed uterus Surgical History Surgical History History of section S/P 2016 complicated by Preeclampsia and GDMA1 C/section for nonreassuring status S/P laparoscopy 2014 Dx endometriosis Family History Family History Mother Diabetes mellitus Depression Acute anxiety Grandparent Diabetes mellitus Depression Acute anxiety Heart problem Other No pertinent family history Social History Social History Smoking status: Never smoker Second hand tobacco smoke exposure: No Alcohol intake: never Substance use: never Substance use type: marijuana Last use: 2 MONTHS Do You Feel Safe in your Home?: Yes Lack of Transportation: No Lack of Food: Never True Current Housing: I Have Housing Concerned About Future Housing: No Difficulty Paying Gas/Electric Bills: No Difficulty Paying for Meds: No Currently Unemployed: No Education: High School Diploma/GED Difficulty w/ Childcare or Family Care: No Living arrangements: alone Gender identity (if verbalized by the patient): Female Sexual Orientation (if Verbalized by the Patient): Straight or Heterosexual Spiritual care concerns: No Meds Home Medications and Allergies Home Medications Medication Instructions Recorded Confirmed Type vits no.126-ferrous fum 1 tablet 03/04/23 09/18/23 History 28 mg iron-folic acid 800 mcg tablet (Classic ) ascorbate calcium (vitamin C) 500 500 mg PO DAILY 09/18/23 10/03/23 History mg tablet folic acid 800 mcg tablet 0.8 mg PO DAILY 09/18/23 10/03/23 History magnesium 200 mg tablet 200 mg PO DAILY 09/18/23 10/03/23 History Allergies Allergy/AdvReac Type Severity Reaction Status Date / Time No Known Allergies Allergy Verified 10/03/23 13:19 Exam Const: General: cooperative, healthy appearing and comfortable Nutritional Appearance: average body habitus Orientation/consciousness: oriented to person, oriented to place and oriented to time HENMT: Head: normal to inspection Resp: Effort & Inspection: normal respiratory effort Cardio: Rate: regular rate Rhythm: regular rhythm Heart sounds: S1 normal heart sound present and S2 normal heart sound present GI: Inspection: normal to inspection Auscultation: normal bowel sounds : External Female Exam: normal external appearance Speculum Exam - Vagina: normal appearance of the vagina Speculum Exam - Cervix: normal appearance of the cervix ( second-degree prolapse) Bimanual exam- vagina & uterus: enlarged Bimanual Exam- Adnexa, other: normal adnexae Assessment and Plan Assessment and plan (1) Pelvic pain: Code(s): R10.2 - Pelvic and perineal pain Status: Acute (2) Prolapsed uterus: Code(s): N81.4 - Uterovaginal prolapse, unspecified
--- NOTE | 2023-10-10 14:42 | WPDANESEPPF ---
Anes - Initial Pre Proc Eval Procedure: Operation Date: 10/11/23 11:30 Proposed Procedures p Robotic Assisted Total Vaginal Hysterectomy with Bilateral Salpingectomy - Tyler Arciniega MD Date/Time: 10/10/23 14:42 Surgeon: Tyler Arciniega MD Pre Op Diagnosis: pelvic pain, heavy bleeding, uterine prolapse Patient Data Age: 28 Gender: F Height: 1.55 m Weight: 70 kg Allergies Allergy/AdvReac Type Severity Reaction Status Date / Time No Known Allergies Allergy Verified 10/11/23 10:12 Home Medications Medication Instructions Recorded Confirmed Type vits no.126-ferrous fum 1 tablet 03/04/23 09/18/23 History 28 mg iron-folic acid 800 mcg tablet (Classic ) ascorbate calcium (vitamin C) 500 500 mg PO DAILY 09/18/23 10/11/23 History mg tablet folic acid 800 mcg tablet 0.8 mg PO DAILY 09/18/23 10/11/23 History magnesium 200 mg tablet 200 mg PO DAILY 09/18/23 10/11/23 History hydrocodone 5 mg-acetaminophen 325 1 tablet PO Q4H PRN pain #30 tabs 10/11/23 Rx mg tablet Patient hx anesthesia problems: none Family hx anesthesia problems: none Results Review: All pre-operative results and documents have been reviewed as part of the pre-operative evaluation. [facility] Past Medical History Medical History (Updated 10/10/23 @ 14:43 by Lukas Sykes DO) Anxiety Diabetes in Endometriosis IUFD at less than 20 weeks of gestation contractions Prolapsed uterus Surgical History Surgical History History of section S/P 2016 complicated by Preeclampsia and GDMA1 C/section for nonreassuring status S/P laparoscopy 2014 Dx endometriosis Family History Family History Mother Diabetes mellitus Depression Acute anxiety Grandparent Diabetes mellitus Depression Acute anxiety Heart problem Other No pertinent family history Social History Social History Smoking status: Never smoker Second hand tobacco smoke exposure: No Alcohol intake: never Substance use: never Substance use type: marijuana Last use: 2 MONTHS Do You Feel Safe in your Home?: Yes Lack of Transportation: No Lack of Food: Never True Current Housing: I Have Housing Concerned About Future Housing: No Difficulty Paying Gas/Electric Bills: No Difficulty Paying for Meds: No Currently Unemployed: No Education: High School Diploma/GED Difficulty w/ Childcare or Family Care: No Living arrangements: alone Gender identity (if verbalized by the patient): Female Sexual Orientation (if Verbalized by the Patient): Straight or Heterosexual Spiritual care concerns: No Anes - Eval Final PreProcedure Day of Procedure 10/10/23 14:42 Patient weight: overweight Heart: regular rate and rhythm Lungs: clear to auscultation Airway: Mallampati scale class II Neurological: alert and oriented Last oral intake: >/= 8 hours ASA classification: II Emergent: no Anesthetic plan: proceed Anesthesia type and monitoring: general ETT and standard monitoring Results Review: All pre-operative results and documents have been reviewed as part of the pre-operative evaluation. Informed Consent: The patient's anesthetic plan and its attendant risks and benefits were discussed with the patient/family/POA. Questions were solicited and answers provided to the satisfaction of the patient/family/POA.
[2023-10-11] VITALS (10 sets, daily range): BP systolic 81–121; BP diastolic 61–74; PULSE 73–86; RESP 12–18; TEMP 36.4–37.2; O2SAT 99–100; BMI 28.2
--- NOTE | 2023-10-11 06:32 | WPDHPUPDATE1 ---
History and Physical Update Update Date/Time: 10/11/23 06:32 History and Physical has been reviewed, including an updated exam of the patient. There are NO changes in the patient's condition. Risks, benefits, and alternatives have been discussed and questions answered. Patient agrees to proceed with procedure.
[2023-10-11] MEDS: LACTATED RINGERS 1,000 ML 30 ML IV CONT ×2 (09:50→12:54)
[2023-10-11] MEDS: ACETAMINOPHEN 500 MG TABLET 1000 MG PO (10:06)
[2023-10-11] MEDS: KETOROLAC 15 MG/ML VIAL (*BKC) IV PUSH (10:06)
[2023-10-11] MEDS: SCOPOLAMINE 1 MG PATCH 1 PATCH TRANSDERM (10:19)
[2023-10-11] MEDS: ceFAZolin 2 GM/D5W 50 ML 2 GM/50 ML BAG IVPB (11:11)
--- NOTE | 2023-10-11 12:40 | PM.DS ---
DS: Admitting Diagnosis Discharge Date 10/12/2023 Admitting Diagnosis pelvic pain/ prolapse / excessive bleeding DS: Discharge Diagnosis Discharge Diagnosis (1) Prolapsed uterus: Code(s): N81.4 - Uterovaginal prolapse, unspecified Status: Acute (2) Pelvic pain: Code(s): R10.2 - Pelvic and perineal pain Status: Acute (3) Excessive bleeding: Code(s): R58 - Hemorrhage, not elsewhere classified Status: Acute DS: Summary Hospital Course Reason for hospitalization: patient was admitted on 10/11/2023 for robotic hysterectomy bilateral salpingectomy. The procedure was uncomplicated but did require extensive lysis of adhesions. Hospital Course: Hospital course thereafter was. She remained afebrile. She was up, voiding without difficulty, eating regular diet, ambulating, and generally without. Complaints Time Spent with Patient Time attestation: Total time spent providing and/or coordinating discharge services: Exam Const: General: cooperative, healthy appearing and comfortable Nutritional Appearance: average body habitus Orientation/consciousness: oriented to person, oriented to place and oriented to time HENMT: Head: normal to inspection Resp: Effort & Inspection: normal respiratory effort Cardio: Rate: regular rate Rhythm: regular rhythm Heart sounds: S1 normal heart sound present and S2 normal heart sound present GI: Inspection: normal to inspection and incision ( wounds are clean dry and intact) DS: Data Data Completed and Pending Pending studies at discharge: Pending at discharge 10/11/23 12:27 Surgical [PTH] Routine Discharge Plan Discharge Patient Disposition: Home, Self-Care Discharge Instructions: Remove the Scopolamine patch that was placed behind your ear in 72 hours or less. Wash your hands after touching. Stand Alone Forms: General Discharge Instructions Follow-up/Referrals: Tyler Ayoub MD [Physician] - Discharge Medications: New hydrocodone-acetaminophen 5-325 mg tablet 1 tablet PO Q4H PRN (Reason: pain) Qty: 30 0RF No Action folic acid 800 mcg tablet 0.8 mg PO DAILY magnesium 200 mg tablet 200 mg PO DAILY ascorbate calcium (vitamin C) 500 mg tablet 500 mg PO DAILY Classic 28 mg iron- 800 mcg Tablet 1 tablet
--- NOTE | 2023-10-11 12:42 | W.PM.PROC2 ---
Procedure Note - Detailed Date of Procedure 10/11/23 Pre-op Diagnosis pelvic pain, heavy bleeding, uterine prolapse Post-op Diagnosis Other ( pelvic plain/heavy bleeding/uterine prolapse/pelvic adhesions) Procedure Performed robotic total vaginal hysterectomy and bilateral salpingectomy with extensive lysis of adhesions Surgeon Tyler Arciniega MD Anesthesia General Indications cysts 28-year-old multiparous female with severe pelvic pain and bleeding refractory to medical therapy Findings uterine prolapse. Multiple adhesions Description of Procedure the patient was prepped draped in the normal sterile fashion placed in dorsal lithotomy position. Under excellent general trach anesthesia weighted speculum placed in posterior fornix vagina. Anterior lip of the cervix grasped with single-tooth tenaculum. Uterus sounded to 10cm. Serial dilatation with fragmented the performed followed by passes the 8. JOHN and the 2. 0.5 cold cup. A 16 Armenian catheter placed in bladder draining clear urine the weighted speculum were single-tooth removed. The gloves were changed. A supraumbilical incision made. Veress needle passed in the abdomen. Abdomen filled with CO2 gas [id number]. 8Mm trocar in the abdomen. Downside visualized the received. Patient placed in 18? of para Trendelenburg the right left lower quadrant incision made 8mm trocars advanced under direct visualization assuring no injury. Right upper quadrant incision made and 8mm trocar advanced under direct visualization assuring no injury. The robot was docked. Attention was turned to the console. Multiple adhesions were seen anteriorly to the uterus and these were easily taken down. Uterus however was markedly adherent to the anterior portion of the abdominal wall hiding the uterine the bladder. The round ligament on the right was grasped, burned, cut. Anteriorly dissecting was undertaken and was difficult to discern the area where the bladder was due to the severe adhesions. The bladder was then filled with 150cc methylene blue and the dissection continued until this could be clearly be seen that the bladder was clear of the dissection area this was brought to the opposite round ligament clamped, burned, cut. The bladder was deflated once again. The fallopian tube was then skeletonized away from the ovarian complex and left attached and uterine origin this was repeated on the contralateral side. The the utero-ovarian ligament was skeletonized clamping burning cutting and conserving the left ovary. Conserving the right ovary in similar fashion, the right utero-ovarian ligament was clamped, burned, cut brought to the level of previously cut round ligament. Large tortuous vessels were seen throughout the uterus. The cardinal broad ligaments were serially skeletonized the left clamping burning cutting until the large tortuous vessels could be seen on the left these were individually clamped, burned, cut. In similar fashion the cardinal broad ligaments on the right were serially skeletonized clamping burning cutting and hugging the cervix and uterus until the large tortuous vessels could be seen on the right. These were individually clamped, burned, cut. A colpotomy incision was made in the cervix and uterus as and tubes removed through the vagina. Vagina closed continuous running 0V lock from lateral edge to lateral edge back to the midline. Irrigation undertaken until clear [place] term was irregular over the raw surface area. The the robot was undocked. The gas removed from the abdomen. The trocars removed the incisions closed with 4 Monocryl and glue. Patient went to recovery in satisfactory condition. All sponge, needle, instrument counts were correct. There were no immediate complications Estimated Blood Loss 50 Drains No Packing No Pathology Yes Complications No immediate complications Condition Stable Disposition PACU
[2023-10-11] MEDS: fentaNYL CITRATE INJ (*CRX) 100 MCG/2 ML VIAL 25 MCG IV PUSH ×2 (13:02→13:04)
[2023-10-11] MEDS: diphenhydrAMINE HCl INJ 50 MG/ML VIAL 25 MG IV PUSH (13:51)
[2023-10-11] MEDS: DEXTROSE 5%/LACTATED RINGERS 1,000 ML 125 ML IV CONT (15:17)
[2023-10-11] MEDS: KETOROLAC 30 MG/ML VIAL (*BKC) IV PUSH (15:18)
[2023-10-11] MEDS: ONDANSETRON INJ 4 MG/2 ML VIAL IV PUSH (15:23)
[2023-10-11] MEDS: SIMETHICONE 80 MG TAB.CHEW PO (17:44)
[2023-10-11] MEDS: DOCUSATE SODIUM 100 MG CAPSULE PO (17:44)
[2023-10-11] MEDS: HYDROcodone/acetaminophen (*CRX) 5-325 MG TABLET 1 TAB PO (20:20)
[2023-10-12] VITALS: BP 100/50; PULSE 76; RESP 18; TEMP 36.9; O2SAT 97
[2023-10-12] MEDS: HYDROcodone/acetaminophen (*CRX) 5-325 MG TABLET 1 TAB PO ×3 (00:28→09:57)
[2023-10-12] MEDS: IBUPROFEN 600 MG TABLET PO ×2 (00:28→09:57)
[2023-10-12] MEDS: SIMETHICONE 80 MG TAB.CHEW (00:29)
[2023-10-12 04:00] VITALS: BP 104/54; PULSE 66; RESP 18; TEMP 36.6; O2SAT 97
[2023-10-12 05:16] LABS: Basophils Absolute Auto 0.1 K/mm3 (0.0-0.1); Basophils Percent Auto 0.8 % (0.2-1.2); Eosinophils Absolute Auto 0.2 K/mm3 (0-0.3); Eosinophils Percent Auto 2.1 % (0-4.4); Hemoglobin 11.5 g/dL (12.0-15.0); Immature Granulocyte Absolute 0.02 K/mm3 (0.00-0.031); Immature Granulocyte Percent A 0.3 % (0-0.5); Lymphocytes Percent Auto 29.9 % (18.3-44.2); Mean Corpuscular HGB Conc 31.1 g/dl (32-36); Mean Corpuscular Hemoglobin 28.2 pg (26-34); Mean Corpuscular Volume 90.7 fl (80-100); Mean Platelet Volume 9.9 fl (7.4-10.4); Monocytes Absolute Auto 0.5 K/mm3 (0.1-0.6); Monocytes Percent Auto 6.5 % (2.6-8.5); Neutrophils Absolute Auto 4.7 K/mm3 (1.3-6.7); Neutrophils Percent Auto 60.4 % (45.5-73.1); Platelet Count Result 257 k/mm3 (150-375); Red Blood Count 4.08 M/mm3 (4.2-5.4); Red Cell Distribution Width 13.5 % (11.5-14.5); White Blood Count 7.7 K/mm3 (4.5-10.0)
--- NOTE | 2023-10-12 05:30 | OBPPTRN ---
Patient transferred to post room #279 via ( wheelchair ). Support person present. Oriented to unit, room, information board, rooming in, admission packet and security measures. Patient verbalizes understanding.
--- NOTE | 2023-10-12 06:41 | PM.GYNPNOP ---
ELECTRONIC TECHNOLOGIST - A/P Postoperative Procedures: Procedures Operation Date: 10/11/23 11:30 Actual Procedure Side Surgeon p Robotic Assisted Total Vaginal Hysterectomy with Bilateral Salpingectomy, Extensive Lysis of Adhesions Bilateral Tyler Arciniega MD Postoperative day: 1 Postoperative status: doing well Postoperative plan: routine post-op care, see orders, advance diet, voiding trials and discharge Time Spent With Patient Time: Total time spent is greater than 50% in coordination of care (as documented) at patient's floor/unit and/or counseling patient: Time with patient: less than 15 minutes ELECTRONIC TECHNOLOGIST- PN:Subj Post-Op Subjective Date/time seen: 10/12/23 06:41 Subjective: patient has no complaints, patient desires discharge, pain is well controlled and patient is tolerating oral intake Exam Const: General: cooperative, healthy appearing and comfortable Orientation/consciousness: oriented to person, oriented to place and oriented to time Chest: Chest palpation & inspection: normal inspection of the chest Resp: Effort & Inspection: normal respiratory effort Cardio: Rate: regular rate Rhythm: regular rhythm Heart sounds: S1 normal heart sound present and S2 normal heart sound present GI: Inspection: normal to inspection and incision (cdi) Auscultation: normal bowel sounds ELECTRONIC TECHNOLOGIST - PN: Obj Data Vital Signs Vital Signs: Vital Signs - 24 hr 10/11/23 09:25 10/11/23 12:54 10/11/23 13:10 Temperature 98.0 F 97.5 F L Pulse Rate 74 86 74 Respiratory Rate 18 15 14 Blood Pressure 116/71 81/61 L 115/74 Pulse Oximetry 99 100 100 Oxygen Delivery Room Air Simple Face Mask Simple Face Mask Oxygen Flow Rate 8 8 10/11/23 13:25 10/11/23 13:40 10/11/23 13:55 Temperature Pulse Rate 85 75 76 Respiratory Rate 18 14 12 Blood Pressure 106/69 117/66 121/64 Pulse Oximetry 100 99 Oxygen Delivery Room Air Room Air Room Air Oxygen Flow Rate 10/11/23 14:15 10/11/23 14:30 10/11/23 14:45 Temperature 98.9 F Pulse Rate 86 73 78 Respiratory Rate 16 12 16 Blood Pressure 115/65 111/69 115/65 Pulse Oximetry 99 99 99 Oxygen Delivery Room Air Room Air Oxygen Flow Rate 10/11/23 20:00 10/11/23 20:00 10/12/23 00:00 Temperature 98.6 F 98.4 F Pulse Rate 74 76 Respiratory Rate 18 18 Blood Pressure 112/64 100/50 L Pulse Oximetry 100 97 Oxygen Delivery Room Air Oxygen Flow Rate 10/12/23 04:00 Temperature 98 F Pulse Rate 66 Respiratory Rate 18 Blood Pressure 104/54 L Pulse Oximetry 97 Oxygen Delivery Oxygen Flow Rate Intake/Output Intake/Output: Intake & Output 10/09/23 10/10/23 10/11/23 10/12/23 23:59 23:59 23:59 23:59 Intake Total 1620 Output Total 1120 Balance 500 Meds/Results Medications: Active Medications Generic Name Dose Route Start Last Admin Trade Name Freq PRN Reason Stop Dose Admin Hydrocodone Bitart/Acetaminophen 1 tab 10/11/23 14:32 10/12/23 04:28 Hydrocodone/Acetaminophen (*Crx) 5-325 Mg Tablet PO 1 tab Q3H PRN Administration Pain Rated 5 or Less Hydrocodone Bitart/Acetaminophen 1 tab 10/11/23 14:32 Hydrocodone/Acetaminophen (*Crx) 10-325 Mg Tablet PO Q3H PRN Pain Rated 6 or Greater Docusate Sodium 100 mg 10/11/23 17:00 10/11/23 17:44 Docusate Sodium 100 Mg Capsule PO 100 mg BID TAMIKO Administration Enoxaparin Sodium 40 mg 10/12/23 09:00 Enoxaparin 40 Mg/0.4 Ml Syringe SUB-Q DAILY TAMIKO Dextrose/Lactated Ringer's 1,000 mls @ 125 mls/hr 10/11/23 14:32 10/11/23 15:17 Dextrose 5%/Lactated Ringers IV CONT 125 mls/hr .Q8H TAMIKO Administration Ibuprofen 600 mg 10/11/23 14:32 10/12/23 00:28 Ibuprofen 600 Mg Tablet PO 600 mg Q6H PRN Administration Cramping Ketorolac Tromethamine 30 mg 10/11/23 14:32 10/11/23 15:18 Ketorolac 30 Mg/Ml Vial (*Bkc) IV PUSH 10/16/23 14:31 30 mg Q6H PRN Administration Pain Rated 4-6 Naloxone HCl 0.1 mg 10/11/23 14:32 Naloxone Hcl 0.4 M
[2023-10-12 08:00] VITALS: PULSE 74; RESP 16; O2SAT 100
[2023-10-12 08:17] VITALS: BP 107/67; PULSE 74; RESP 16; TEMP 36.8; O2SAT 100
[2023-10-12] MEDS: SIMETHICONE 80 MG TAB.CHEW PO (09:57)
[2023-10-12] MEDS: DOCUSATE SODIUM 100 MG CAPSULE PO (09:57)
[2023-10-12] MEDS: ENOXAPARIN 40 MG/0.4 ML SYRINGE SUB-Q (09:58)
--- NOTE | 2023-10-12 10:17 | PC.NURSE ---
Pt requesting to drive self home following surgery overnight stay; pt instructed that she should not be driving self home; notified and pt still wishes to drive self home stating she doesn't have anyone else and she has three children at home.
--- NOTE | 2023-10-12 10:24 | PC.NURSE ---
Pt informed RN that she has a ride to pick her up; she will not be driving self home.
== END 2023-10-12 10:47 | disposition home or self-care (01) ==
LOC: ANHSURGERY 10:17 → ANHOB2 14:49
PROVIDERS: PCP Internal Medicine; Visit Provider Obstetrics & Gynecology
PROC: (CPT 58552; principal; 2023-10-11 11:30)
DX: N81.4 Uterovaginal prolapse, unspecified (principal); N73.6 Female pelvic peritoneal adhesions (postinfective); N72 Inflammatory disease of cervix uteri; N87.9 Dysplasia of cervix uteri, unspecified; N88.8 Other specified noninflammatory disorders of cervix uteri; N83.8 Other noninflammatory disorders of ovary, fallopian tube and broad ligament; N93.9 Abnormal uterine and vaginal bleeding, unspecified; R10.2 Pelvic and perineal pain; F12.90 Cannabis use, unspecified, uncomplicated
CPT/HCPCS: 58552; S2900; 36415; 85025; 88307; 99199; A9270; J0330; J0690; J1100; J1200; J1650; J1885; J2250; J2405; J2704; J3010; J7030; J7120; J7121; Q9968

== ENCOUNTER 2023-11-05 10:38 | Outpatient (CLI) | payer OTHER, SELFPAY ==
[2023-11-05 11:30] LABS: Basophils Absolute Auto 0.1 K/mm3 (0.0-0.1); Eosinophils Absolute Auto 0.2 K/mm3 (0-0.3); Eosinophils Percent Auto 3.1 % (0-4.4); Hematocrit 42.8 % (37.0-47.0); Hemoglobin 13.8 g/dL (12.0-15.0); Immature Granulocyte Absolute 0.02 K/mm3 (0.00-0.031); Immature Granulocyte Percent A 0.4 % (0-0.5); Lymphocytes Absolute Auto 1.69 K/mm3 (0.9-3.2); Lymphocytes Percent Auto 32.8 % (18.3-44.2); Mean Corpuscular HGB Conc 32.2 g/dl (32-36); Mean Corpuscular Hemoglobin 28.3 pg (26-34); Mean Corpuscular Volume 87.9 fl (80-100); Mean Platelet Volume 9.2 fl (7.4-10.4); Monocytes Absolute Auto 0.4 K/mm3 (0.1-0.6); Monocytes Percent Auto 8.1 % (2.6-8.5); Neutrophils Absolute Auto 2.8 K/mm3 (1.3-6.7); Neutrophils Percent Auto 54.6 % (45.5-73.1); Platelet Count Result 306 k/mm3 (150-375); Red Blood Count 4.87 M/mm3 (4.2-5.4); Red Cell Distribution Width 13.3 % (11.5-14.5); White Blood Count 5.2 K/mm3 (4.5-10.0)
[2023-11-05 11:41] LABS: Alanine Aminotransferase 14 U/L (6-35); Albumin Level 4.7 g/dL (3.5-5.1); Alkaline Phosphatase 68 U/L (38-126); Anion Gap 7 mmol/L (4-12); Aspartate Amino Transferase 26 U/L (14-36); Bilirubin,Total 0.7 mg/dL (0.2-1.3); Blood Urea Nitrogen 12 mg/dL (7-17); Calcium 9.6 mg/dL (8.4-10.2); Carbon Dioxide 28 mmol/L (22-30); Chloride 105 mmol/L (98-107); Cholesterol 170 mg/dL (0-200); Estimated Glomerular Filt Rate > 60; Glucose 95 mg/dL (65-110); HDL Direct 38 mg/dL; Potassium 4.1 mmol/L (3.4-5.0); Sodium 140 mmol/L (137-145); Triglycerides 132 mg/dL (<150)
[2023-11-05 11:52] LABS: LDL Cholesterol Direct 104 mg/dL
[2023-11-05 15:59] LABS: Hemoglobin A1C 4.9 % (<5.7)
== END 2023-11-05 10:39 | disposition home or self-care (01) ==
PROVIDERS: PCP Nurse Practitioner; Visit Provider Clinical Nurse Specialist
DX: Z13.228 Encounter for screening for other metabolic disorders (principal); Z13.220 Encounter for screening for lipoid disorders; M25.561 Pain in right knee
CPT/HCPCS: 36415; 73562; 80053; 80061; 83036; 85025

== ENCOUNTER 2023-11-17 09:25 | Outpatient (CLI) | payer OTHER, SELFPAY ==
--- NOTE | ~2023-11-17 | MR_ITS ---
EXAMINATION: MR knee RT wo con DATE: 11/17/2023 10:02 INDICATION: Pain in unspecified knee. TECHNIQUE: Magnetic resonance imaging (MRI) of the right knee was performed without intravenous contr ast. Sequences included axial PD-weighted FS FSE, coronal PD-weighted FSE and PD-weighted FS FSE, sag ittal PD-weighted FSE, and sagittal T2-weighted FS FSE. COMPARISON: Right knee radiographs 11/05/23 FINDINGS: Medial compartment: There is a vertical tear of posterior horn of medial meniscus. Medial compartment cartilage is normal . Lateral compartment: Lateral meniscus is normal. Lateral compartment cartilage is normal. Patellofemoral compartment: There is cartilage surface irregularity of patellar lateral facet. There is cartilage surface irregul arity of trochlea. Ligaments and tendons: There is a complete tear of anterior cruciate ligament. Posterior cruciate ligament is normal. There is edema around medial collateral ligament, consistent with mild sprain. Lateral collateral complex i s normal. There is mild patellar tendinopathy. Fluid: There is a small knee joint effusion. Osseous/other: There is edema-like marrow signal intensity involving lateral tibial condyle posteriorly, consistent with contusion. IMPRESSION: 1. Complete tear of anterior cruciate ligament. 2. Tear of medial meniscus. 3. Grade 1 sprain of medial collateral ligament. 4. Mild patellofemoral compartment chondrosis. 5. Small knee joint effusion. Reviewed, dictated and finalized at location E.
== END 2023-11-17 09:26 | disposition home or self-care (01) ==
PROVIDERS: PCP Nurse Practitioner; Visit Provider Clinical Nurse Specialist
DX: M25.461 Effusion, right knee (principal); S83.241D Other tear of medial meniscus, current injury, right knee, subsequent encounter; S83.511D Sprain of anterior cruciate ligament of right knee, subsequent encounter; S83.411D Sprain of medial collateral ligament of right knee, subsequent encounter; X58.XXXD Exposure to other specified factors, subsequent encounter
CPT/HCPCS: 73721

== ENCOUNTER 2023-11-29 03:11 | Day surgery (SDC) | payer OTHER, SELFPAY ==
[2023-11-29] VITALS (15 sets, daily range): BP systolic 100–124; BP diastolic 49–77; PULSE 70–119; RESP 14–18; TEMP 36.3–37.6; O2SAT 94–100
--- NOTE | ~2023-11-29 | US_ITS ---
EXAMINATION: US pelvic complete w TV DATE: 11/29/2023 07:54 INDICATION: Post hysterectomy for 7 weeks. Abdominal pain with vaginal bleeding Comparison:No prior studies for comparison. TECHNIQUE: Multiple transabdominal and endovaginal sonographic images of the pelvis performed. FINDINGS: The uterus is surgically absent. The right ovary measures 3 x 3 x 1.6 cm and the left ovary measures 2.8 x 1.8 x 1.9 cm. There are small follicles in each ovary. Normal doppler signal in both ovaries. There is free fluid in the pelvis. There are no abnormal masses seen on either side. IMPRESSION: 1. Unremarkable pelvic ultrasound post hysterectomy. Reviewed, dictated and finalized at location B.
[2023-11-29 04:04] LABS: Basophils Percent Auto 0.3 % (0.2-1.2); Eosinophils Absolute Auto 0.1 K/mm3 (0-0.3); Eosinophils Percent Auto 1.4 % (0-4.4); Hematocrit 39.3 % (37.0-47.0); Hemoglobin 13.1 g/dL (12.0-15.0); Immature Granulocyte Absolute 0.02 K/mm3 (0.00-0.031); Immature Granulocyte Percent A 0.2 % (0-0.5); Lymphocytes Absolute Auto 1.68 K/mm3 (0.9-3.2); Lymphocytes Percent Auto 18.4 % (18.3-44.2); Mean Corpuscular HGB Conc 33.3 g/dl (32-36); Mean Corpuscular Volume 86.9 fl (80-100); Mean Platelet Volume 8.9 fl (7.4-10.4); Monocytes Absolute Auto 0.5 K/mm3 (0.1-0.6); Monocytes Percent Auto 5.6 % (2.6-8.5); Neutrophils Absolute Auto 6.8 K/mm3 (1.3-6.7); Neutrophils Percent Auto 74.1 % (45.5-73.1); Platelet Count Result 255 k/mm3 (150-375); Red Blood Count 4.52 M/mm3 (4.2-5.4); Red Cell Distribution Width 12.9 % (11.5-14.5); White Blood Count 9.1 K/mm3 (4.5-10.0)
[2023-11-29 04:14] LABS: Alanine Aminotransferase 14 U/L (6-35); Albumin Level 4.3 g/dL (3.5-5.1); Alkaline Phosphatase 65 U/L (38-126); Anion Gap 9 mmol/L (4-12); Aspartate Amino Transferase 22 U/L (14-36); Bilirubin,Total 0.8 mg/dL (0.2-1.3); Blood Urea Nitrogen 10 mg/dL (7-17); Calcium 9.3 mg/dL (8.4-10.2); Carbon Dioxide 25 mmol/L (22-30); Chloride 107 mmol/L (98-107); Estimated CRCL calculation 72 ml/min; Estimated Glomerular Filt Rate > 60; Glucose 114 mg/dL (65-110); Potassium 3.5 mmol/L (3.4-5.0); Sodium 141 mmol/L (137-145)
--- NOTE | 2023-11-29 04:39 | ED.GENADULT ---
HPI - General Adult General Chief complaint: Urogenital-Female Stated complaint: 7 weeks post hysterectomy-bleeding Time Seen by Provider: 11/29/23 03:16 History of Present Illness HPI narrative: patient 28-year-old female who presents emergency department with chief complaint of vaginal bleeding. Patient reports that she had a hysterectomy approximately 7 weeks ago patient reports that she was cleared to return to normal activities and had intercourse this evening and afterwards had severe pain and the pelvis and also had bleeding present. The patient reports she had a fair amount of bleeding and decided to come to the emergency department. Related Data Home Medications Medication Instructions Recorded Confirmed vits no.126-ferrous fum 1 tablet 03/04/23 11/05/23 28 mg iron-folic acid 800 mcg tablet (Classic ) ascorbate calcium (vitamin C) 500 500 mg PO DAILY 09/18/23 11/05/23 mg tablet folic acid 800 mcg tablet 0.8 mg PO DAILY 09/18/23 11/05/23 magnesium 200 mg tablet 200 mg PO DAILY 09/18/23 11/05/23 Allergies Allergy/AdvReac Type Severity Reaction Status Date / Time No Known Allergies Allergy Verified 11/05/23 09:42 Review of Systems Review of Systems: A 10 system review of systems was completed on the patient and is negative except for what is stated in the HPI. Nursing and ancillary documentation was reviewed. COUNT INCLUDES THE [facility] Past Medical History Medical History 39 weeks gestation of Anxiety delivery delivered Diabetes in Endometriosis Excessive bleeding False labor GDM, class A2 IUFD at less than 20 weeks of gestation Jaw pain Pelvic pain contractions Preventative health care Prolapsed uterus Prolapsed uterus Screening for lipid disorders Screening for metabolic disorder Spontaneous rupture of membranes Sterilization Term Surgical History Surgical History H/O: hysterectomy History of section S/P 2015 complicated by Preeclampsia and GDMA1 C/section for nonreassuring status S/P laparoscopy 2013 Dx endometriosis Family History Family History Mother Diabetes mellitus Depression Acute anxiety Grandparent Diabetes mellitus Depression Acute anxiety Heart problem Other No pertinent family history Social History Social History Smoking status: Never smoker Second hand tobacco smoke exposure: No Alcohol intake: never Substance use: current Substance use type: marijuana Last use: 2 MONTHS Do You Feel Safe in your Home?: Yes Lack of Transportation: No Lack of Food: Never True Current Housing: I Have Housing Concerned About Future Housing: No Difficulty Paying Gas/Electric Bills: No Difficulty Paying for Meds: No Currently Unemployed: No Education: High School Diploma/GED Difficulty w/ Childcare or Family Care: No Living arrangements: alone Gender identity (if verbalized by the patient): Female Sexual Orientation (if Verbalized by the Patient): Straight or Heterosexual Spiritual care concerns: No Exam Narrative: GENERAL: Well-appearing, well-nourished, and in no acute distress. HEAD: Normocephalic, atraumatic. EYES: PERRLA and EOMI. ENT: Nares clear, no rhinorrhea or epistaxis. Mucous membranes moist. NECK: Supple. CHEST: Clear to auscultation. No respiratory distress. HEART: Regular rate and rhythm. No murmur heard. Normal peripheral pulses. ABDOMEN: Soft, nontender, nondistended, normal active bowel sounds. : Speculum exam was performed there was dark blood in the vaginal vault that was cleared using 2 OB swabs. Patient then had serosanguineous drainage no large laceration was
--- NOTE | 2023-11-29 07:05 | PM.IMHP ---
H&P: HPI History of Present Illness Date/Time: 11/29/23 07:05 Chief Complaint: Vaginal bleeding following intercourse in a patient who robotic hysterectomy 7 weeks ago Narrative: a 20 year 7 stress the worse as she is admitted for diagnostic laparoscopy with exam anesthesia repair of laceration. There was some old blood fluid looking discharge making this highly suspicious for the weakness or tear in the but could be seen easily. Risks and benefits of the procedure reviewed in full [facility] Past Medical History Medical History 39 weeks gestation of Anxiety delivery delivered Diabetes in Endometriosis Excessive bleeding False labor GDM, class A2 IUFD at less than 20 weeks of gestation Jaw pain Pelvic pain contractions Preventative health care Prolapsed uterus Prolapsed uterus Screening for lipid disorders Screening for metabolic disorder Spontaneous rupture of membranes Sterilization Term Surgical History Surgical History H/O: hysterectomy History of section S/P 2016 complicated by Preeclampsia and GDMA1 C/section for nonreassuring status S/P laparoscopy 2014 Dx endometriosis Family History Family History Mother Diabetes mellitus Depression Acute anxiety Grandparent Diabetes mellitus Depression Acute anxiety Heart problem Other No pertinent family history Social History Social History Smoking status: Never smoker Second hand tobacco smoke exposure: No Alcohol intake: never Substance use: current Substance use type: marijuana Last use: 2 MONTHS Do You Feel Safe in your Home?: Yes Lack of Transportation: No Lack of Food: Never True Current Housing: I Have Housing Concerned About Future Housing: No Difficulty Paying Gas/Electric Bills: No Difficulty Paying for Meds: No Currently Unemployed: No Education: High School Diploma/GED Difficulty w/ Childcare or Family Care: No Living arrangements: alone Gender identity (if verbalized by the patient): Female Sexual Orientation (if Verbalized by the Patient): Straight or Heterosexual Spiritual care concerns: No Meds Home Medications and Allergies Home Medications Medication Instructions Recorded Confirmed Type vits no.126-ferrous fum 1 tablet 03/04/23 11/05/23 History 28 mg iron-folic acid 800 mcg tablet (Classic ) ascorbate calcium (vitamin C) 500 500 mg PO DAILY 09/18/23 11/05/23 History mg tablet folic acid 800 mcg tablet 0.8 mg PO DAILY 09/18/23 11/05/23 History magnesium 200 mg tablet 200 mg PO DAILY 09/18/23 11/05/23 History hydrocodone 5 mg-acetaminophen 325 1 tablet PO Q4H PRN pain #30 tabs 10/11/23 11/05/23 Rx mg tablet cephalexin 500 mg tablet 500 mg PO Q12H #14 tabs 11/05/23 11/05/23 Rx methylprednisolone 4 mg tablets in See Rx Instructions PO PER PKG DIR 11/05/23 11/05/23 Rx a dose pack (Medrol (Leonid)) #21 ea Allergies Allergy/AdvReac Type Severity Reaction Status Date / Time No Known Allergies Allergy Verified 11/05/23 09:42 Vital Signs Vital Signs - 24 hr 11/29/23 03:18 Temperature 97.7 F Pulse Rate 98 Respiratory Rate 16 Blood Pressure 124/76 Pulse Oximetry 100 Oxygen Delivery Room Air Exam Const: General: cooperative, healthy appearing and comfortable Nutritional Appearance: average body habitus Orientation/consciousness: oriented to person, oriented to place and oriented to time HENMT: Head: normal to inspection Resp: Effort & Inspection: normal respiratory effort Cardio: Rate: regular rate Rhythm: regular rhythm Heart sounds: S1 normal heart sound present and S2 normal heart sound present GI: Inspection: norm
--- NOTE | 2023-11-29 07:10 | WPDHPUPDATE1 ---
History and Physical Update Update Date/Time: 11/29/23 07:10 History and Physical has been reviewed, including an updated exam of the patient. There are NO changes in the patient's condition. Risks, benefits, and alternatives have been discussed and questions answered. Patient agrees to proceed with procedure.
[2023-11-29] MEDS: ONDANSETRON INJ 4 MG/2 ML VIAL IV PUSH (08:12)
--- NOTE | 2023-11-29 08:14 | PC.NURSE ---
c/o nausea, zofran given
--- NOTE | 2023-11-29 11:21 | WPDANESEPPF ---
Anes - Initial Pre Proc Eval Procedure: Operation Date: 11/29/23 12:30 Proposed Procedures p Diagnostic Laparoscopy, - Tyler Arciniega MD s Vaginal Examination Under Anesthesia, Repair Vaginal Laceration - Tyler Arciniega MD Date/Time: 11/29/23 11:21 Surgeon: Tyler Arciniega MD Pre Op Diagnosis: 7 weeks post hysterectomy-bleeding Patient Data Age: 28 Gender: F Height: 1.55 m Weight: 68 kg Last Vital Signs Temp 36.6 C 11/29/23 10:00 Pulse 70 11/29/23 10:00 Resp 16 11/29/23 10:00 BP 118/68 11/29/23 10:00 Pulse Ox 98 11/29/23 10:00 O2 Del Method Room Air 11/29/23 03:18 Allergies Allergy/AdvReac Type Severity Reaction Status Date / Time No Known Allergies Allergy Verified 11/05/23 09:42 Home Medications Medication Instructions Recorded Confirmed Type vits no.126-ferrous fum 1 tablet 03/04/23 11/05/23 History 28 mg iron-folic acid 800 mcg tablet (Classic ) ascorbate calcium (vitamin C) 500 500 mg PO DAILY 09/18/23 11/05/23 History mg tablet folic acid 800 mcg tablet 0.8 mg PO DAILY 09/18/23 11/05/23 History magnesium 200 mg tablet 200 mg PO DAILY 09/18/23 11/05/23 History hydrocodone 5 mg-acetaminophen 325 1 tablet PO Q4H PRN pain #30 tabs 10/11/23 11/05/23 Rx mg tablet cephalexin 500 mg tablet 500 mg PO Q12H #14 tabs 11/05/23 11/05/23 Rx methylprednisolone 4 mg tablets in See Rx Instructions PO PER PKG DIR 11/05/23 11/05/23 Rx a dose pack (Medrol (Leonid)) #21 ea hydrocodone 5 mg-acetaminophen 325 1 tablet PO Q4H PRN pain #20 tabs 11/29/23 Rx mg tablet Laboratory Tests 11/29/23 03:58 WBC 9.1 K/mm3 (4.5-10.0) RBC 4.52 M/mm3 (4.2-5.4) Hgb 13.1 g/dL (12.0-15.0) Hct 39.3 % (37.0-47.0) MCV 86.9 fl (80-100) MCH 29.0 pg (26-34) MCHC 33.3 g/dl (32-36) RDW 12.9 % (11.5-14.5) Plt Count 255 k/mm3 (150-375) MPV 8.9 fl (7.4-10.4) Immature Gran % (Auto) 0.2 % (0-0.5) Neut % (Auto) 74.1 H % (45.5-73.1) Lymph % (Auto) 18.4 % (18.3-44.2) Drew % (Auto) 5.6 % (2.6-8.5) Eos % (Auto) 1.4 % (0-4.4) Baso % (Auto) 0.3 % (0.2-1.2) Lymph # (Auto) 1.68 K/mm3 (0.9-3.2) Drew # (Auto) 0.5 K/mm3 (0.1-0.6) Eos # (Auto) 0.1 K/mm3 (0-0.3) Baso # (Auto) 0.0 K/mm3 (0.0-0.1) Abs Immat Gran (auto) 0.02 K/mm3 (0.00-0.031) Absolute Neuts (auto) 6.8 H K/mm3 (1.3-6.7) Absolute Nucleated RBC 0.000 K/mm3 (0.0-0.012) Nucleated RBC % 0.0 % (0.0-0.2) Sodium 141 mmol/L (137-145) Potassium 3.5 mmol/L (3.4-5.0) Chloride 107 mmol/L (98-107) Carbon Dioxide 25 mmol/L (22-30) Anion Gap 9 mmol/L (4-12) BUN 10 mg/dL (7-17) Creatinine 0.90 mg/dL (0.7-1.0) Estim Creat Clear Calc 72 ml/min Estimated GFR > 60 (59 - ) Glucose 114 H mg/dL (65-110) Calcium 9.3 mg/dL (8.4-10.2) Total Bilirubin 0.8 mg/dL (0.2-1.3) AST 22 U/L (14-36) ALT 14 U/L (6-35) Alkaline Phosphatase 65 U/L (38-126) Total Protein 7.0 g/dL (6.3-8.2) Albumin 4.3 g/dL (3.5-5.1) Blood Type A Positive Antibody Screen Negative Patient hx anesthesia problems: none Family hx anesthesia problems: none Results Review: All pre-operative results and documents have been reviewed as part of the pre-operative evaluation. [facility] Past Medical History Medical History 39 weeks gestation of Anxiety delivery delivered Diabetes in Endometriosis Excessive bleeding False labor GDM, class A2 IUFD at less than 20 weeks of gestation Jaw pain Pelvic pain contractions Preventative health care Prolapsed uterus Prolapsed uterus Screening for lipid disorders Screening for metabolic disorder Spontaneous rupture of membranes Sterilization Term Surgical History Allison
[2023-11-29] MEDS: ceFAZolin SODIUM 1 GM VIAL 2 GM IV PUSH (12:35)
--- NOTE | 2023-11-29 12:58 | P.OP_ITS ---
Procedure Note - Detailed Date of Procedure 11/29/23 Pre-op Diagnosis vaginal laceration Post-op Diagnosis Other (Vaginal laceration with adhesions) Procedure Performed laparoscopy with lysis of adhesions / exam under anesthesia/ repair of vaginal laceration Surgeon Tyler Arciniega MD Anesthesia General Indications a 28 old female 7 weeks out from hysterectomy with vaginal bleeding intercourse pain. Findings Multiple adhesions were seen over the vaginal cuff. Week area approximately the midportion was noted. The ovaries appeared grossly within normal limits. Description of Procedure Patient was prepped draped in normal sterile fashion placed in the dorsal lithotomy position. Under excellent general trach anesthesia sponge stick was placed in the vagina and the bladder drained of clear urine. Gloves were changed. A supraumbilical incision was made the Veress needle passed in the abdomen. Abdomen filled with CO2 gas to 15mm Hg. The 5mm trocar advanced under direct visualization with Optiview. Multiple adhesions were seen. The patient placed in Trendelenburg and the r Left lower quadrant incision was made . 5mm trocar advanced under direct visualization assuring injury. Multiple adhesions were seen from the small to the vaginal cuff area these were easily brought down and the phlegmon was noted. Vigorous irrigation was undertaken until clear. The midportion of a weak area was noted and this was bluntly dissected to open up to about 2 years 3mm. The edges were bloodied. And while the wet process assistant head miller was watching from above 3 [id number] sutures were placed in that central portion to avoid injury to the bladder and the bowel. The abdomen was re- insufflated appeared completely intact. There was no leaking and the the repair appeared clear. Interceed was placed over the top of the vaginal cuff to try to prevent further bowel adhesions. The trocars were after gas removed from the abdomen. The incisions closed with 4 glue. The patient was awakened went recovery in satisfactory condition. Sponge, needle, instrument counts were correct. There were no immediate complications Estimated Blood Loss 5 Drains No Packing No Pathology None sent Complications No immediate complications Condition Stable Disposition PACU
[2023-11-29] MEDS: LACTATED RINGERS 1,000 ML 30 ML IV CONT ×2 (13:08)
== END 2023-11-29 15:25 | disposition home or self-care (01) ==
LOC: ANHED 07:07 → ANHSURGERY 11:01
PROVIDERS: Emergency Provider Emergency Medicine; PCP Nurse Practitioner; Visit Provider Obstetrics & Gynecology
PROC: (CPT 49320; principal; 2023-11-29 12:30)
PROC: (CPT 58999; 2023-11-29 12:30)
DX: S31.41XA Laceration without foreign body of vagina and vulva, initial encounter (principal); X58.XXXA Exposure to other specified factors, initial encounter; N99.2 Postprocedural adhesions of vagina
CPT/HCPCS: 58999; 36415; 76830; 76856; 80053; 85025; 86850; 86900; 86901; 96374; 99285; A9270; J0690; J1170; J2250; J2405; J2704; J3010; J7120

== ENCOUNTER 2024-03-31 14:34 | Emergency (ER) | payer OTHER, SELFPAY ==
--- NOTE | ~2024-03-31 | XR_ITS ---
EXAMINATION: XR ankle LT min 3V DATE: 03/31/2024 15:01 INDICATION: Left ankle pain and swelling. TECHNIQUE: 4 views of left ankle were obtained. COMPARISON: None. FINDINGS: Alignment is normal. No fracture. Joint spaces are normal. There is lateral ankle soft tiss ue swelling. IMPRESSION: 1. No fracture. Reviewed, dictated and finalized at location A. IMPRESSION: 1. No fracture.
[2024-03-31 14:38] VITALS: BP 134/79; PULSE 100; RESP 16; TEMP 36.7; O2SAT 100
--- NOTE | 2024-03-31 15:11 | ED.LOWEXIN ---
HPI - Extremity Injury (Lower) General Chief Complaint: Extremity Injury, Lower Stated Complaint: I broke my left ankle Time Seen by Provider: 03/31/24 14:36 Source: patient Mode of arrival: ambulatory Limitations: no limitations History of Present Illness HPI Narrative: Patient is a 28 y/o female who presents to the ED with c/o L ankle pain. Patient reports she was walking her dog when she tripped in a hole in the ground and felt her left ankle. She states she heard a crack. She has had pain and swelling to her left ankle since then. She is able to ambulate, but has some discomfort with this. She has not taken anything for pain. Denies any other injuries. Denies numbness. Related Data Home Medications Medication Instructions Recorded Confirmed vits no.[id number]-ferrous fum 1 tablet PO DAILY 03/04/23 12/18/23 28 mg iron-folic acid 800 mcg tablet (Classic ) ascorbate calcium (vitamin C) 500 500 mg PO DAILY 09/18/23 12/18/23 mg tablet folic acid 800 mcg tablet 0.8 mg PO DAILY 09/18/23 12/18/23 magnesium 200 mg tablet 200 mg PO DAILY 09/18/23 12/18/23 Allergies Allergy/AdvReac Type Severity Reaction Status Date / Time No Known Allergies Allergy Verified 12/18/23 09:50 Review of Systems Review of Systems: All systems reviewed & are unremarkable except as noted in HPI. All systems reviewed & are unremarkable except as noted in HPI and below PMFSH Past Medical History Medical History 39 weeks gestation of Anxiety delivery delivered Diabetes in Endometriosis Excessive bleeding False labor GDM, class A2 IUFD at less than 20 weeks of gestation Jaw pain Pelvic pain contractions Preventative health care Prolapsed uterus Prolapsed uterus Screening for lipid disorders Screening for metabolic disorder Spontaneous rupture of membranes Sterilization Term Surgical History Surgical History H/O: hysterectomy History of section S/P 2015 complicated by Preeclampsia and GDMA1 C/section for nonreassuring status S/P laparoscopy 2013 Dx endometriosis Family History Family History Mother Diabetes mellitus Depression Acute anxiety Grandparent Diabetes mellitus Depression Acute anxiety Heart problem Other No pertinent family history Social History Social History Smoking status: Never smoker Second hand tobacco smoke exposure: No Alcohol intake: never Substance use: current Substance use type: marijuana Last use: 2 MONTHS Do You Feel Safe in your Home?: Yes Lack of Transportation: No Lack of Food: Never True Current Housing: I Have Housing Concerned About Future Housing: No Difficulty Paying Gas/Electric Bills: No Difficulty Paying for Meds: No Currently Unemployed: No Education: High School Diploma/GED Difficulty w/ Childcare or Family Care: No Living arrangements: alone Gender identity (if verbalized by the patient): Female Sexual Orientation (if Verbalized by the Patient): Straight or Heterosexual Spiritual care concerns: No Exam Narrative: GENERAL: Well appearing, well-nourished, non-toxic, in no acute distress. HEAD: Normocephalic, atraumatic. RESPIRATORY: Airway patent, respirations nonlabored. CARDIOVASCULAR: Regular rate and rhythm. Pedal pulses intact. MUSCULOSKELETAL: Moves all extremities. Moderate swelling to L lateral malleoli. TTP over anterior ankle joint extending slightly laterally. No TTP over medial malleoli, throughout dorsal foot, or along 5th MT. Sensation intact. SKIN: Warm, dry, normal color. NEURO: A&O X3. Speech clear. PSYCHIATRIC: Appropriate mood and affect. Normal interaction
[2024-03-31 15:27] VITALS: BP 125/86; PULSE 70; RESP 14; TEMP 36.4; O2SAT 100
== END 2024-03-31 15:29 | disposition home or self-care (01) ==
PROVIDERS: Emergency Provider Physician Assistant; PCP Nurse Practitioner
DX: S93.402A Sprain of unspecified ligament of left ankle, initial encounter (principal); W18.40XA Slipping, tripping and stumbling without falling, unspecified, initial encounter; Y93.K1 Activity, walking an animal; Z90.710 Acquired absence of both cervix and uterus
CPT/HCPCS: 73610; 99283

== ENCOUNTER 2024-07-16 15:45 | Outpatient (RCR) | payer OTHER, SELFPAY ==
--- NOTE | 2024-06-10 18:31 | PTOPEVAL1 ---
Assessment and note entered by Effie John, PT Evaluation Information Assessment Status Evaluation Diagnosis S99.919A unspec left ankle injury ICD-10 Condition Codes (PT) M25.572,Weakness R53.1 Other ICD-10 Condition Codes ( left ankle instability PT) Onset Mar 31, 2024 Subjective Information Pt sprained left ankle stepping in a hole her dog dug in the yard. Sprained ankle wiht increased swelling and bruising. CX-rays negative for fracture. Recreationally likes to work out weight lifting and walking. Squatting and heel raises are challenging. Reported Pain Level Pain Score 0: Self Report Assessment PT Clinical Summary Pt presents to therapy after ankle sprain while walking her dog. Evaluation shows decreased ROM and instability of left ankle compared to right. Pt also demo's continued swelling of the ankle and deficits in her squat mechanics effecting her weight lifting. Pt will benefit from physical therapy in order to address deficits and return to PLOF Plan of Care Interventions Electrical Stimulation,Hot Pack/Cold Pack, Intermittent Compression,Manual Therapy,Neuro Re- education,Patient/Caregiver Educati,Therapeutic Activities,Therapeutic Exercise,Ultrasound,Other Other Interventions Taping, cryotherapy cuff with compression PT Services Indicated Yes Treatment Frequency and 1x weekly x 6 visits Duration These treatments will address the objective and functional deficits as defined above. The patient will be advanced safely and appropriately in order for the patient to progress towards his/her prior level of function. Additional exercises will be introduced and as well as a comprehensive home exercise program upon discharge, if needed, ?to ensure carryover of functional gains achieved in the clinic. This treatment plan has been reviewed and agreement upon by the patient.
--- NOTE | 2024-06-10 18:31 | OPREHPOC ---
Outpatient Therapy Plan of Care This is a Multidisciplinary Plan of Care that may contain components documented by all disciplines (PT, OT, and ST.) PT Goal 1 Goal / Goal Update Pt will be independent in HEP Target Visit 3 PT Problem 2 PT Problem #2 Impaired Coordination PT Goal 1 Goal / Goal Update Pt will demo PT Problem 3 PT Problem #3 Pain PT Goal 1 Goal / Goal Update Pt will report greatest pain level at 1/10 Target Visit 3 PT Goal 2 Goal / Goal Update Pt will report complete resolution of pain Target Visit 6 PT Problem 4 PT Problem #4 Impaired Flexibility PT Goal 1 Goal / Goal Update Pt will demo passive dorsiflexion o 0-10 Target Visit 3 PT Problem 5 PT Problem #5 Impaired Range of Motion PT Goal 1 Goal / Goal Update Pt will demo ROM passively within 3-5 degrees of opposing ankle Target Visit 6
--- NOTE | 2024-08-21 11:14 | PTOPDC ---
Assessment and note entered by Effie John, PT Evaluation Information Assessment Status Discharge - Pt Not Present Diagnosis S99.919A unspec left ankle injury ICD-10 Condition Codes (PT) Pain in left ankle and joints of left foot M25.572 ,Weakness R53.1 Other ICD-10 Condition Codes ( left ankle instability PT) Onset Mar 31, 2024 Subjective Information Pt sprained left ankle stepping in a hole her dog dug in the yard. Sprained ankle wiht increased swelling and bruising. CX-rays negative for fracture. Recreationally likes to work out weight lifting and walking. Squatting and heel raises are challenging. Assessment PT Clinical Summary Pt attended three therapy sessions including evaluation. It has been over 30 days since she has attended therapy. clerical has attempted to contact her without success or return call to schedule remainder of her visits. Thus patient is being discharged due to nonattendance. Plan of Care PT Services Indicated No
== END 2024-08-21 11:20 | disposition home or self-care (01) ==
LOC: ANHHIPT 15:45
PROVIDERS: PCP Nurse Practitioner; Visit Provider Clinical Nurse Specialist
DX: S99.919D Unspecified injury of unspecified ankle, subsequent encounter (principal)
CPT/HCPCS: 97016; 97110; 97161; 97530

== ENCOUNTER 2024-11-15 12:42 | Outpatient (CLI) | payer OTHER, SELFPAY ==
--- NOTE | ~2024-11-15 | MR_ITS ---
MRI of the brain Clinical History: Headache Technique: Axial and sagittal T1-weighted images were acquired. These were followed by axial T2-weigh trey, diffusion weighted, gradient, and FLAIR images. Following intravenous administration of 13 cc Pr oHance gadolinium, T1-weighted fat-sat imaging was performed in the axial and coronal planes. Findings: No abnormal signal seen in the brain parenchyma. No acute infarct, intracranial hemorrhage, or mass lesion. Ventricles and subarachnoid spaces are unremarkable. Orbits are unremarkable. Paranasal sinuses and m astoid air cells are clear. Major intracranial flow voids appear intact. Sagittal midline structures are intact. No abnormal postcontrast enhancement identified. IMPRESSION: Normal exam. Reviewed, dictated and finalized at location M. IMPRESSION: Normal exam.
--- OUTSIDE RECORDS SUMMARY | 2024-11-15 12:46 | XMS_ITS | Clinical Summary ---
Author Organization [facility] Address [address] [place] [address] Care Team Providers Care Agricultural Extension Educator Name Role Phone No, Physician Primary Care Provider Allergies No known active allergies Medications prochlorperazine (COMPAZINE) 10 mg tablet Take 1 tablet (10 mg total) by mouth 2 (two) times a day as needed (headache) 10 tablet 09/27/2024 Active Encounters Date Type Department Care Team Description 09/27/2024 12:57 PM CUSTOMER OPERATIONS SPECIALIST - 09/27/2024 6:35 PM CUSTOMER OPERATIONS SPECIALIST Emergency [facility] Emergency Department [address] [place] [address] Gerson Prater MD Thompson, Karima Arrianna, MD Chronic migraine with aura without status migrainosus, not intractable (Primary Dx) Discharge Disposition: Discharge to home or self care 09/27/2024 Telephone [facility] [address] [place] [phone] William Chang MD 09/27/2024 Ophth Exam [facility] [address] [place] [phone] William Chang MD from Last 3 Months Social History Tobacco Use Types Packs/Day Years Used Date Smoking Tobacco: Never Assessed Personal Safety Answer Date Recorded Have you ever been in or are you currently in a harmful physical or emotional relationship or is someone making you feel afraid or unsafe? Denies 09/27/2024 Comments Unknown Sex and Gender Information Value Date Recorded Sex Assigned at Not on file Legal Sex Female 12:38 PM CUSTOMER OPERATIONS SPECIALIST Gender Identity Not on file Sexual Orientation Not on file Last Filed Vital Signs Vital Sign Reading Time Taken Comments Blood Pressure 126/80 09/27/2024 6:30 PM CUSTOMER OPERATIONS SPECIALIST Pulse 91 09/27/2024 6:30 PM CUSTOMER OPERATIONS SPECIALIST Temperature 36.7 C (98.1 F) 09/27/2024 6:30 PM CUSTOMER OPERATIONS SPECIALIST Respiratory Rate 18 09/27/2024 6:30 PM CUSTOMER OPERATIONS SPECIALIST Oxygen Saturation 98% 09/27/2024 6:30 PM CUSTOMER OPERATIONS SPECIALIST Inhaled Oxygen Concentration - - Weight 67.1 kg (148 lb) 09/27/2024 12:44 PM CUSTOMER OPERATIONS SPECIALIST Height 154.9 cm (5' 1 ) 09/27/2024 12:44 PM CUSTOMER OPERATIONS SPECIALIST Body Mass Index 27.96 09/27/2024 12:44 PM CUSTOMER OPERATIONS SPECIALIST Plan of Treatment Health Maintenance Due Date Last Done Comments Cervical Cancer Screening 1995 Depression Screening 1995 Hepatitis C Screening 1995 Regular Well Visit/Exam 18-64 2013 Influenza Vaccine (#1) 2024 6, 04/27/2016, 12/08/2015 DTaP/Tdap/Td Vaccine (8 - Td or Tdap) 04/27/2026 04/27/2016, 03/15/2016, 05/02/2006, Additional history exists Hepatitis B Screening Completed 03/11/1996 , 1995, 1995 Varicella Vaccines Completed 11/03/2007, 04/04/2000 HPV Vaccines Completed 02/03/2008, 09/26, 08/05/2007 Pneumococcal vaccine <65 Aged Out No longer eligible based on patient's age to complete this topic Procedures Procedure Name Priority Date/Time Associated Diagnosis Comments EGFR STAT 09/27/2024 1:20 PM CUSTOMER OPERATIONS SPECIALIST DIFFERENTIAL AUTO STAT 09/27/2024 1:2 0 PM CUSTOMER OPERATIONS SPECIALIST HEMOGLOBIN A1C STAT 09/27/2024 1:20 PM CUSTOMER OPERATIONS SPECIALIST CRP (ACUTE PHASE) STAT 09/27/2024 1:2 0 PM CUSTOMER OPERATIONS SPECIALIST ERYTHROCYTE SEDIMENTATION RATE STAT 09/27/2024 1:20 PM CUSTOMER OPERATIONS SPECIALIST COMPREHENSIVE METABOLIC PANEL STAT 09/27/2024 1:20 PM CUSTOMER OPERATIONS SPECIALIST CBC WITH AUTO DIFFERENTIAL STAT 09/27/2024 1:20 PM CUSTOMER OPERATIONS SPECIALIST from Last 3 Months Results * eGFR (09/27/2024 1:20 PM CUSTOMER OPERATIONS SPECIALIST) eGFR 88 >=60 mL/min/1. 73 m2 Comment: Interpretive Data Reference Interval Normal >/= 90 mL/min/1.73m2 Mildly decreased* 60 - 89 mL/min/1.73m2 Mildly to moderately decreased 45 - 59 mL/min/1.73m2 Moderately to severely decreased 30 - 44 mL/min/1.73m2 Severely decreased 15 - 29 mL/min/1.73m2 Kidney Failure < 15 mL/min/1.73m2 *Relative to young adult level Estimated glomerular filtration rate is determined by the 2020 CKD-EPI equation recommended by the National Kidney Foundation (A Unifying Approach to GFR Estimation: Recommendations of the NKF-ASK Task Force on Reassessing the Inclusion of Race in Diagnosing Kidney Disease, JASN 2020). The CKD-EPI equation should not be used for patients with unstable renal function and has not been validated in children and those over 70. Current interpretive data was last reviewed 2021. Blood 09/27/2024 1:20 PM CUSTOMER OPERATIONS SPECIALIST 09/27/2024 1:30 PM CUSTOMER OPERATIONS SPECIALIST Romel Ku MD LAB BLOOD ORDERABLES Final Result [facility] [place] [address] * Differential, auto (09/27/2024 1:20 PM CUSTOMER OPERATIONS SPECIALIST) Neutrophil abs 5.6 1.5 - 6.5 K/cumm Imm gran abs 0.0 0.0 - 0.1 K/cumm [facility] Lymphocyte abs 1.6 0.8 - 3.3 K/cumm [facility] Monocyte abs 0.4 0.2 - 0.8 K/cumm [facility] Eosinophil abs 0.1 0.0 - 0.5 K/cumm [facility] Basophil abs 0.1 0.0 - 0.1 K/cumm [facility] Neutrophil pct 71.5 % [facility] Comment: Interpretive Data Percent cell count reference ranges are not reported, since discordance with absolute values may lead to misinterpretation of CBC data. Current Interpretive Data was last revised on 2017. Imm gran pct 0.1 % [facility] Comment: Interpretive Data Percent cell count reference ranges are not reported, since discordance with absolute values may lead to misinterpretation of CBC data. Current Interpretive Data was last revised on 2017. Lymphocyte pct 20.8 % [facility] Comment: Interpretive Data Percent cell count reference ranges are not reported, since discordance with absolute values may lead to misinterpretation of CBC data. Current Interpretive Data was last revised on 2017. Monocyte pct 5.1 % [facility] Comment: Interpretive Data Percent cell count reference ranges are not reported, since discordance with absolute values may lead to misinterpretation of CBC data. Current Interpretive Data was last revised on 2017. Eosinophil pct 1.7 % [facility] Comment: Interpretive Data Percent cell count reference ranges are not reported, since discordance with absolute values may lead to misinterpretation of CBC data. Current Interpretive Data was last revised on 2017. Basophil pct 0.8 % [facility] Comment: Interpretive Data Percent cell count reference ranges are not reported, since discordance with absolute values may lead to misinterpretation of CBC data. Current Interpretive Data was last revised on 2017. Blood 09/27/2024 1:20 PM CUSTOMER OPERATIONS SPECIALIST 09/27/2024 1:30 PM CUSTOMER OPERATIONS SPECIALIST us Romel Ku MD LAB BLOOD ORDERABLES Final Result [facility] [place] [address] * (ABNORMAL) CBC with auto differential (09/27/2024 1:20 PM CUSTOMER OPERATIONS SPECIALIST) WBC 7.9 3.8 - 9.9 K/cumm Hgb 14.3 11.9 - 15.5 g/dL [facility] Hct 41.7 35.6 - 45.5 % [facility] Plt 271 150 - 400 K/cumm [facility] MPV 9.0(L) 9.1 - 12.3 fL [facility] RBC 4.89 3.90 - 5.20 M/cumm [facility] MCV 85.3 81.3 - 96.4 fL [facility] MCH 29.2 27.1 - 33.3 pg [facility] MCHC 34.3 32.3 - 35.7 g/dL [facility] RDW CV 12.9 11.1 - 14.9 % [facility] RDW SD 39.8 35.7 - 48.1 fL [facility] NRBC abs 0.00 0.00 - 0.01 K/cumm [facility] Blood 09/27/2024 1:20 PM CUSTOMER OPERATIONS SPECIALIST 09/27/2024 1:30 PM CUSTOMER OPERATIONS SPECIALIST Romel Ku MD LAB BLOOD ORDERABLES Final Result Performing Organization Address City/[facility] Co de Phone Number [facility] [place] [address] * Erythrocyte sedimentation rate (09/27/2024 1:20 PM CUSTOMER OPERATIONS SPECIALIST) [facility] Erythrocyte sedimentation rate 4 1 - 20 mm/hr Blood 09/27/2024 1:20 PM CUSTOMER OPERATIONS SPECIALIST 09/27/2024 1:30 PM CUSTOMER OPERATIONS SPECIALIST Romel Ku MD LAB BLOOD ORDERABLES Final Result [facility] [place] [address] * CRP (acute phase) (09/27/2024 1:20 PM CUSTOMER OPERATIONS SPECIALIST) [facility] CRP 2.0 <=10.0 mg/L Blood 09/27/2024 1:20 PM CUSTOMER OPERATIONS SPECIALIST 09/27/2024 1:30 PM CUSTOMER OPERATIONS SPECIALIST Romel Ku MD LAB BLOOD ORDERABLES Final Result Performing Organization Address [facility] [place] [address] * Hemoglobin A1c (09/27/2024 1:20 PM CUSTOMER OPERATIONS SPECIALIST) Pathologist [facility] Hgb A1C 4.9 4.0 - 5.6 % Estimated Average Glucose 94 mg/dL [facility] Comment: The ADA recommends reporting an estimated Average Glucose (eAG) with all Hemoglobin A1c results using the equation derived from a study of 507 normal and diabetic adults. Minority populations were underrepresented and children were not included. (Diabetes Care 2020; 43(S1): S66-S76). The eAG is not equivalent to a fasting glucose. Blood 09/27/2024 1:20 PM CUSTOMER OPERATIONS SPECIALIST 09/27/2024 1:30 PM CUSTOMER OPERATIONS SPECIALIST Romel Ku MD LAB BLOOD ORDERABLES Final Result Performing Organization Address [facility] [place] [address] * Comprehensive metabolic panel (09/27/2024 1:20 PM CUSTOMER OPERATIONS SPECIALIST) [facility] Sodium 142 135 - 145 mmol/L Potassium, pl 4.2 3.3 - 4.9 mmol/L [facility] Chloride 105 97 - 110 mmol/L [facility] CO2 26 22 - 32 mmol/L [facility] Anion gap 11 2 - 15 mmol/L [facility] BUN 11 6 - 25 mg/dL [facility] Creatinine 0.91 0.60 - 1.10 mg/dL [facility] Glucose 86 70 - 199 mg/dL [facility] Comment: Interpretive Data Fasting glucose >/= 126 mg/dl is diagnostic for diabetes. Fasting is defined as no caloric intake for at least 8 hours. Fasting glucose between 100 mg/dl to 125 mg/dl is diagnostic of prediabetes. In a patient with classic symptoms of hyperglycemia or hyperglycemic crisis, a random glucose >/= 200 mg/dl is diagnostic for diabetes. In the absence of unequivocal hyperglycemia, results should be confirmed by repeat testing. The classification and Diagnosis of Diabetes Diabetes Care 2021; 46: S19-S40. Current interpretive data was last revised 2022. Calcium 9.4 8.5 - 10.3 mg/dL [facility] Bilirubin, total 0.3 0.1 - 1.2 mg/dL [facility] Protein, pl 7.5 6.5 - 8.5 g/dL [facility] Albumin 4.6 3.5 - 5.0 g/dL [facility] Alk phos 72 40 - 130 Units/L [facility] ALT 19 7 - 45 Units/L [facility] AST 18 10 - 45 Units/L [facility] Blood 09/27/2024 1:20 PM CUSTOMER OPERATIONS SPECIALIST 09/27/2024 1:30 PM CUSTOMER OPERATIONS SPECIALIST us Romel Ku MD LAB BLOOD ORDERABLES Final Result [facility] [place] [address] from Last 3 Months Insurance [facility] Care Teams Agricultural Extension Educator Relationship Specialty Start Date End Date No, Physician PCP - General 09/27/24
--- OUTSIDE RECORDS SUMMARY | 2024-11-15 12:46 | XMS_ITS | Clinical Summary ---
Author Organization [facility] Address [address] [place] [address] Care Team Providers Care Fish Tender Name Role Phone None, Provider Primary Care Provider Hina Verde DIESEL ELECTRICIAN Unavailable [phone] Allergies No known active allergies Medications triamcinolone 0.1 % cream Apply topically 2 (two) times daily. 15 g 0 Active Encounters Date Type Department Care Team Description 09/25/2024 6:44 PM METAL SHAPING MACHINE OPERATOR - 09/25/2024 8:56 PM METAL SHAPING MACHINE OPERATOR Emergency [facility] Emergency Room [id number] [place] [address] James Nunez MD Eye Problem Discharge Disposition: Home or Self Care (Routine Discharge) 09/25/2024 Travel from Last 3 Months Social History Tobacco Use Types Packs/Day Years Used Date Smoking Tobacco: Never Smokeless Tobacco: Never Tobacco Cessation:Counseling Given: Not Answered Alcohol Use Standard Drinks/Week Comments Not Currently 0 (1 standard drink = 0.6 oz pur e alcohol) Comments No Sex and Gender Information Value Date Recorded Sex Assigned at Not on file Legal Sex Female 9:15 PM METAL SHAPING MACHINE OPERATOR Gender Identity Not on file Sexual Orientation Not on file Last Filed Vital Signs Vital Sign Reading Time Taken Comments Blood Pressure 123/81 09/25/2024 6:47 PM METAL SHAPING MACHINE OPERATOR Pulse 80 09/25/2024 6:47 PM METAL SHAPING MACHINE OPERATOR Temperature 36.4 C (97.5 F) 09/25/2024 6:47 PM METAL SHAPING MACHINE OPERATOR Respiratory Rate 16 09/25/2024 6:47 PM METAL SHAPING MACHINE OPERATOR Oxygen Saturation 100% 09/25/2024 6:47 PM METAL SHAPING MACHINE OPERATOR Inhaled Oxygen Concentration - - Weight 67.1 kg (148 lb) 09/25/2024 6:47 PM METAL SHAPING MACHINE OPERATOR Height 154.9 cm (5' 1 ) 09/25/2024 6:47 PM METAL SHAPING MACHINE OPERATOR Body Mass Index 27.96 09/25/2024 6:47 PM METAL SHAPING MACHINE OPERATOR Plan of Treatment Health Maintenance Due Date Last Done Comments Cervical Cancer Screening Pap Smear (Age 21 to 29) Every 3 Years 1995 Cervical Cancer Screening 1995 Annual Physical 1998 Hepatitis C 2013 COVID-19 Vaccine ( season) 2024 DTaP, Tdap and Td Vaccines (8 - Td or Tdap) 04/27/2026 04/27/2016, 03/15/2016, 05/02/2006, Additional history exists Hepatitis B Vaccines Completed 03/11/1996, 1995, 1995 Meningococcal Vaccine Aged Out 08/05/2007 No mukund lissett eligible based on patient's age to complete this topic HPV Vaccines Completed 02/03/2008, 09/26, 08/05/2007 Meningococcal B Vaccine Aged Out No l onger eligible based on patient's age to complete this topic Pneumococcal Vaccine: Pediatrics (0 to 5 Years) and At-Risk Patients (6 to 49 Years) Aged Out No longer eligible based on patient's age to complete this topic RSV Immunizations Under 20 Months Aged Out No longer eligible based on patient's age to complete this topic Insurance Care Teams Fish Tender Relationship Specialty Start Date End Date None, Provider, PCP - General 08/30/19 Hina Qiu, DIESEL ELECTRICIAN [facility] [address] [place], [place] [id number] CLINICAL NURSE SPECIALIST 09/25/24
--- OUTSIDE RECORDS SUMMARY | 2024-11-15 12:46 | XMS_ITS | Clinical Summary ---
Author Organization [facility] Address [address] [place] [address] Care Team Providers Care Corporate Lawyer Name Role Phone Unavailable Primary Care Provider Unavailabl e Source Comments [facility],non-owned Affiliates and Associated Physician Practices is amultiple site organization consisting of ambulatory clinics and hospital sitesin [place], [place], [place] and [place]. This disclosure is being madepursuant to the Care Everywhere program and may not contain all information available regarding this patient. Last updated 18.[facility] Allergies No known active allergies Medications * Be aware that medications may not be up to date on this document. Alwaysverify current medications with the patient. Vit-Fe Fumarate-FA ( VITAMIN) 28-0.8 MG tablet Take 1 Tab by mouth once daily Active raNITIdine (ZANTAC) 150 MG capsule Take 150 mg by mouth 2 times daily Active oxyCODONE-acetam inophen (PERCOCET) 5-325 MG tablet Take 1-2 Tabs by mouth every 4 hours as needed for Pain 30 Tab 06/02/2016 Active ibuprofen (MOTRIN) 600 MG tablet Take 1 Tab by mouth every 6 hours as needed for Pain 60 Tab 2 06/02/2016 Active docusate sodium (COLACE) 100 MG capsule Take 1 Cap by mouth 2 times daily 60 Cap 2 06/02/2016 Active Active Problems Patient Care Coordination No te Formatting of this note migh t be different from the original. 05/28/[address] Barros- please deliver pt if felt needed/suggested. 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 Her initial score at baseline was 0. Based off of her score of 0, Allyson does not warrant follow up . Patient will continue to be screened throughout , at intervals no closer than two weeks, for continued surveillance and early identification of depression until delivery. Supervision of high-risk of young prim igravida 05/21/2016 Overview (05/21/2016): PNL: A+/I/-/- Ab: Neg GCT: 146 GTT: 76 191 175 106 HIV: NR GBS: Neg Datinwk US H/H/Plt: 12.9/38.6/332 Hgb Elec: Negative UDS: Negative QS: CF: Negative Pap: Gc/Chl: Neg/Neg UCx: Negative Breast/Bottle: Family Planning: Depo Tdap: 03/15/16 Flu: 05/11/16 Seasonal allergies 05/21/2016 Gestational diabetes mellitus (GDM) in third tri [facility] 05/21/2016 Overview (05/21/2016): GCT: 146 GTT: 76 191 175 106 HgbA1c: 5.5 Non-reassuring heart r ate or rhythm affecting management of mother care following delivery Chorioamnionitis Resolved Problems Problem Noted Date Diagnosed Date Resolved Date abnormality in pregnan cy-normal anotomy- echo only; not LONGTERM 12/23/2019 01/14/2020 Overview (12/24/2019): Images from the original note were not included. LONGTERM PATIENT--PLEASE CALL [phone] (ex 2) IF TRIAGED OR ADMITTED Care Provider: Guillermina- Dr. Link [facility] consultants involved: De- Nurse Coordinator Diagnosis: Planned surveillance: Referred from Guillermina; initial LONGTERM echo/US on 01/06. 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 See Images or Cardiac under Chart Review for US/ ECHO/ MRI reports. 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 Gender Identity Not on file Sexual Orientation Not on file Last Filed Vital Signs Vital Sign Reading Time Taken Comments Blood Pressure 114/75 01/07/2020 8:31 AM CDT Pulse 111 01/07/2020 8:31 AM CDT Temperature 36.7 C (98 F) 06/02/2016 7:40 AM CDT Respiratory Rate 18 06/02/2016 7:40 AM CDT Oxygen Saturation 99% 06/02/2016 12:21 AM CDT Inhaled Oxygen Concentration - - Weight 75.4 kg (166 lb 3.2 oz) 05/28/2016 9:17 A M CDT Height 154.9 cm (5' 1 ) 05/28/2016 9:17 AM CDT Body Mass Index 31.4 05/28/2016 9:17 AM CDT Plan of Treatment Health Maintenance Due Date Last Done Comments PAP SMEAR 1995 HIV SCREENING 2010 HEPATITIS C SCREENING 08/14/2013 HEPATITIS B VACCINE (1 of 3 - 19+ 3-dose series) 2014 COVID-19 VACCINE ( - 2023-2 5 season) 2024 DEPRESSION SCREENING 07/29/2024 INFLUENZA VACCINE (Season Ended) 2025 04/27/20 16 DTAP/TDAP/TD VACCINES (2 - T d or Tdap) 04/27/2026 04/27/2016 ZOSTER VACCINE (1 of 2) 2045 HIB VACCINE Aged Out No longer eligi ble based on patient's age to complete this topic HPV VACCINE Aged Out No longer eligi ble based on patient's age to complete this topic MENINGOCOCCAL (Group B) VACC INE SHARED DECISION-MAKING Aged Out No longer eligibl e based on patient's age to complete this topic MENINGOCOCCAL GROUPS A/C/Y/W VACCINE Aged Out No longer eligible b ased on patient's age to complete this topic PNEUMOCOCCAL VACCINE Aged Out No long er eligible based on patient's age to complete this topic Insurance [facility] [place] [address] [place] [address] [facility] Medical PLAN [facility] Member Subscriber Plan / Payer (Ef fective for All Dates) Name:Allyson Rodríguez Relation to Subscriber:Self Name:Allyson Rodríguez Payer ID:[id number] (NAIC) Group ID:Not on file Type:Medicaid Managed Care Address: [place] [id number] SELF PAY NO INSURANCE Member Subscriber Plan / Payer (Ef fective for All Dates) Name:Allyson Rodríguez Member ID:Not on file Relation to Subscriber:Not on file Name:ALLYSON RODRÍGUEZ Subscriber ID:Not on file Address: [address] [place], [place] [id number] Payer ID:Not on file Group ID:Not on file Type:Self Pay Address: [place], [place] [facility] SELF PAY NO INSURANCE Member Subscriber Plan / Payer (Ef fective for All Dates) Name:Allyson Rodríguez Member ID:Not on file Relation to Subscriber:Not on file Name:ALLYSON RODRÍGUEZ Subscriber ID:Not on file Address: [address] [place] [id number] Payer ID:Not on file Group ID:Not on file Type:Self Pay Address: [place], [place] [facility] SELF PAY NO INSURANCE Member Subscriber Plan / Payer (Ef fective for All Dates) Name:Allyson Rodríguez Member ID:Not on file Relation to Subscriber:Not on file Name:ALLYSON RODRÍGUEZ Subscriber ID:Not on file Address: [address] [place] [phone] Payer ID:Not on file Group ID:Not on file Type:Self Pay Address: [place], [place] Advance Directives * Full Code (Latest Code Status on File) Date Activated Date Inactivated Comments 05/28/2016 11:41 AM 06/02/2016 12:41 PM
--- OUTSIDE RECORDS SUMMARY | 2024-11-15 12:46 | XMS_ITS | Referral Summary ---
Author Organization [facility] Address [address] [place] [address] Care Team Providers Care Message Broker Developer Name Role Phone No, Physician Primary Care Provider [phone] Encounters Date Type Department Care Team Description 09/27/2024 Telephone [facility] Ophthalmology [address] [place] [phone] William Chang MD 09/27/2024 Ophth Exam [facility] Ophthalmology [address] [place] [phone] William Chang MD 09/27/2024 12:57 PM BENEFIT SPECIALIST - 09/27/2024 6:35 PM BENEFIT SPECIALIST Emergency [facility] Emergency Department [address] [place] [phone] Gerson Prater MD Thompson, Karima Arrianna, MD Chronic migraine with aura without status migrainosus, not intractable (Primary Dx) Discharge Disposition: Discharge to home or self care from Last 3 Months Allergies No known active allergies Medications prochlorperazine (COMPAZINE) 10 mg tablet Take 1 tablet (10 mg total) by mouth 2 (two) times a day as needed (headache) 10 tablet 09/27/2024 Active Social History Tobacco Use Types Packs/Day Years [...] on file Legal Sex Female 12:38 PM BENEFIT SPECIALIST Gender Identity Not on file Sexual Orientation Not on file Last Filed Vital Signs Vital Sign Reading Time Taken Comments Blood Pressure 126/80 09/27/2024 6:30 PM BENEFIT SPECIALIST Pulse 91 09/27/2024 6:30 PM BENEFIT SPECIALIST Temperature 36.7 C (98.1 F) 09/27/2024 6:30 PM BENEFIT SPECIALIST Respiratory Rate 18 09/27/2024 6:30 PM BENEFIT SPECIALIST Oxygen Saturation 98% 09/27/2024 6:30 PM BENEFIT SPECIALIST Inhaled Oxygen Concentration - - Weight 67.1 kg (148 lb) 09/27/2024 12:44 PM BENEFIT SPECIALIST Height 154.9 cm (5' 1 ) 09/27/2024 12:44 PM BENEFIT SPECIALIST Body Mass Index 27.96 09/27/2024 12:44 PM BENEFIT SPECIALIST Plan of Treatment Not on file Procedures Procedure Name Priority Date/Time Associated Diagnosis Comments EGFR STAT 09/27/2024 1:20 PM BENEFIT SPECIALIST DIFFERENTIAL AUTO STAT 09/27/2024 1:2 0 PM BENEFIT SPECIALIST HEMOGLOBIN A1C STAT 09/27/2024 1:20 PM BENEFIT SPECIALIST CRP (ACUTE PHASE) STAT 09/27/2024 1:2 0 PM BENEFIT SPECIALIST ERYTHROCYTE SEDIMENTATION RATE STAT 09/27/2024 1:20 PM BENEFIT SPECIALIST COMPREHENSIVE METABOLIC PANEL STAT 09/27/2024 1:20 PM BENEFIT SPECIALIST CBC WITH AUTO DIFFERENTIAL STAT 09/27/2024 1:20 PM BENEFIT SPECIALIST from Last 3 Months Results * eGFR (09/27/2024 1:20 PM BENEFIT SPECIALIST) eGFR 88 >=60 mL/min/1. 73 m2 [...] last reviewed 2021. Blood 09/27/2024 1:20 PM BENEFIT SPECIALIST 09/27/2024 1:30 PM BENEFIT SPECIALIST us Romel Ku MD LAB BLOOD ORDERABLES Final Result [facility] Department [place] [address] * Differential, auto (09/27/2024 1:20 PM BENEFIT SPECIALIST) Neutrophil abs 5.6 1.5 - 6.5 K/cumm Imm gran abs 0.0 0.0 - 0.1 K/cumm [facility] Lymphocyte abs 1.6 0.8 - 3.3 K/cumm [facility] Monocyte abs 0.4 0.2 - 0.8 K/cumm [facility] Eosinophil abs 0.1 0.0 - 0.5 K/cumm [facility] Basophil abs 0.1 0.0 - 0.1 K/cumm [facility] Neutrophil pct 71.5 % [facility] Comment: Interpretive Data Percent cell count reference ranges are not reported, since discordance with absolute values may lead to misinterpretation of CBC data. Current Interpretive Data was last revised on 2017. Imm gran pct 0.1 % [facility] Comment: Interpretive Data Percent cell count reference ranges are not reported, since discordance with absolute values may lead to misinterpretation of CBC data. Current Interpretive Data was last revised on 2017. Lymphocyte pct 20.8 % [facility] Comment: Interpretive Data Percent cell count reference ranges are not reported, since discordance with absolute values may lead to misinterpretation of CBC data. Current Interpretive Data was last revised on 2017. Monocyte pct 5.1 % [facility] Comment: Interpretive Data Percent cell count reference ranges are not reported, since discordance with absolute values may lead to misinterpretation of CBC data. Current Interpretive Data was last revised on 2017. Eosinophil pct 1.7 % [facility] Comment: Interpretive Data Percent cell count reference ranges are not reported, since discordance with absolute values may lead to misinterpretation of CBC data. Current Interpretive Data was last revised on 2017. Basophil pct 0.8 % [facility] Comment: Interpretive Data Percent cell count reference ranges are not reported, since discordance with absolute values may lead to misinterpretation of CBC data. Current Interpretive Data was last revised on 2017. Blood 09/27/2024 1:20 PM BENEFIT SPECIALIST 09/27/2024 1:30 PM BENEFIT SPECIALIST us Romel Ku MD LAB BLOOD ORDERABLES Final Result [facility] Department [place] [address] * (ABNORMAL) CBC with auto differential (09/27/2024 1:20 PM BENEFIT SPECIALIST) WBC 7.9 3.8 - 9.9 K/cumm Hgb 14.3 11.9 - 15.5 g/dL [facility] Hct 41.7 35.6 - 45.5 % [facility] Plt 271 150 - 400 K/cumm [facility] MPV 9.0(L) 9.1 - 12.3 fL [facility] RBC 4.89 3.90 - 5.20 M/cumm [facility] MCV 85.3 81.3 - 96.4 fL [facility] MCH 29.2 27.1 - 33.3 pg [facility] MCHC 34.3 32.3 - 35.7 g/dL [facility] RDW CV 12.9 11.1 - 14.9 % [facility] RDW SD 39.8 35.7 - 48.1 fL [facility] NRBC abs 0.00 0.00 - 0.01 K/cumm [facility] Blood 09/27/2024 1:20 PM BENEFIT SPECIALIST 09/27/2024 1:30 PM BENEFIT SPECIALIST Romel Ku MD LAB BLOOD ORDERABLES Final Result Performing Organization Address [facility] Co de Phone Number [facility] [place] [address] * Erythrocyte sedimentation rate (09/27/2024 1:20 PM BENEFIT SPECIALIST) [facility] Erythrocyte sedimentation rate 4 1 - 20 mm/hr Blood 09/27/2024 1:20 PM BENEFIT SPECIALIST 09/27/2024 1:30 PM BENEFIT SPECIALIST Romel Ku MD LAB BLOOD ORDERABLES Final Result Performing Organization Address [facility] de Phone Number [facility] [place] [address] * CRP (acute phase) (09/27/2024 1:20 PM BENEFIT SPECIALIST) [facility] CRP 2.0 <=10.0 mg/L Blood 09/27/2024 1:20 PM BENEFIT SPECIALIST 09/27/2024 1:30 PM BENEFIT SPECIALIST Romel Ku MD LAB BLOOD ORDERABLES Final Result Performing Organization Address [facility] Co de Phone Number [facility] [place] [address] * Hemoglobin A1c (09/27/2024 1:20 PM BENEFIT SPECIALIST) [facility] Hgb A1C 4.9 4.0 - 5.6 % Estimated Average Glucose 94 mg/dL [facility] Comment: The ADA recommends reporting an estimated Average Glucose (eAG) with all Hemoglobin A1c results using the equation derived from a study of 507 normal and diabetic adults. Minority populations were underrepresented and children were not included. (Diabetes Care 2020; 43(S1): S66-S76). The eAG is not equivalent to a fasting glucose. Blood 09/27/2024 1:20 PM BENEFIT SPECIALIST 09/27/2024 1:30 PM BENEFIT SPECIALIST us Romel Ku MD LAB BLOOD ORDERABLES Final Result [facility] Department [place] [address] * Comprehensive metabolic panel (09/27/2024 1:20 PM BENEFIT SPECIALIST) Sodium 142 135 - 145 mmol/L Potassium, pl 4.2 3.3 - 4.9 mmol/L [facility] Chloride 105 97 - 110 mmol/L [facility] CO2 26 22 - 32 mmol/L [facility] Anion gap 11 2 - 15 mmol/L [facility] BUN 11 6 - 25 mg/dL [facility] Creatinine 0.91 0.60 - 1.10 mg/dL [facility] Glucose 86 70 - 199 mg/dL [facility] Comment: Interpretive Data Fasting glucose >/= [...] classification and Diagnosis of Diabetes Diabetes Care 202; 46: S19-S40. Current interpretive data was last revised 2022. Calcium 9.4 8.5 - 10.3 mg/dL [facility] Bilirubin, total 0.3 0.1 - 1.2 mg/dL [facility] Protein, pl 7.5 6.5 - 8.5 g/dL [facility] Albumin 4.6 3.5 - 5.0 g/dL [facility] Alk phos 72 40 - 130 Units/L [facility] ALT 19 7 - 45 Units/L [facility] AST 18 10 - 45 Units/L [facility] Blood 09/27/2024 1:20 PM BENEFIT SPECIALIST 09/27/2024 1:30 PM BENEFIT SPECIALIST us Romel Ku MD LAB BLOOD ORDERABLES Final Result [facility] Department [place] [address] from Last 3 Months Insurance [facility] Care Teams Message Broker Developer Relationship Specialty Start Date End Date No, Physician PCP - General 09/27/24
--- OUTSIDE RECORDS SUMMARY | 2024-11-15 12:46 | XMS_ITS | Clinical Summary ---
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
== END 2024-11-15 12:43 | disposition home or self-care (01) ==
PROVIDERS: PCP Clinical Nurse Specialist; Visit Provider Clinical Nurse Specialist
DX: R51.9 Headache, unspecified (principal)
CPT/HCPCS: 70553; A9579

== ENCOUNTER 2025-07-16 10:02 | Outpatient (CLI) | payer OTHER, SELFPAY ==
--- OUTSIDE RECORDS SUMMARY | 2025-07-16 10:34 | XMS_ITS | Clinical Summary ---
Author Organization [facility] Address [address] [place] [address] Care Team Providers Care Ticket Broker Name Role Phone Hina Qiu SPORTS MEDICINE TRAINER-MANAGER SUPPLIER Primary Care Provider [phone] Source Comments [facility],non-owned Affiliates and Associated Physician Practices is amultiple site organization consisting of ambulatory clinics and hospital sitesin [place], [place], [place] and [place]. This disclosure is being madepursuant to the Care Everywhere program and may not contain all information available regarding this patient. Last updated 18.[facility] Allergies No known active allergies Medications * [...] felt needed/suggested. NOPP-MFCC 04/2016 Not seen by RETIREMENT; normal echo Problem Noted Date Diagnosed Date Depression screen 01/07/2020 Overview (01/07/2020): 01/07/2020 Allyson Rodríguez was screened for depression using the [place] Depression Scale (EPDS) at her [facility] initial evaluation on 01/07/2020. Her initial score [...] 05/21/2016 Gestational diabetes mellitus (GDM) in third [facility] 05/21/2016 Overview (05/21/2016): GCT: 146 GTT: 76 191 175 106 HgbA1c: 5.5 Non-reassuring heart r ate or rhythm affecting management of mother care following delivery Chorioamnionitis Resolved Problems Problem Noted Date Diagnosed Date Resolved Date abnormality in pregnan cy-normal anotomy- echo only; not RETIREMENT 12/23/2019 01/14/2020 Overview (12/24/2019): Images from the original note were not included. RETIREMENT PATIENT--PLEASE CALL [phone] (ex 2) IF TRIAGED OR ADMITTED Care Provider: Guillermina- Dr. Link [facility] consultants involved: De- Nurse Coordinator Diagnosis: Planned surveillance: Referred from [facility]; initial RETIREMENT echo/US on 01/06. 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 See Images or Cardiac under Chart Review for US/ ECHO/ MRI reports. 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 Gender Identity Not on file Sexual Orientation [...] A M CDT Height 154.9 cm (5' 1) 05/28/2016 9:17 AM CDT Body Mass Index 31.4 05/28/2016 9:17 AM CDT Plan of Treatment Upcoming Encounters Date Type Department Care Team (Late st Contact Info) Description 08/06/2025 1:00 PM INTERNAL REVENUE SERVICE AGENT Office Visit [facility] - Neurology [address] [place] [address], [place] [address] Cameron Lee, SPORTS MEDICINE TRAINER-CLINICAL TECHNICIAN [address] [place] [address] [place] [id number] Health Maintenance Due Date Last Done Comments HIV SCREENING 2010 HEPATITIS C SCREENING 08/14/2013 HEPATITIS B VACCINE (1 of 3 - 19+ 3-dose series) 2014 PAP SMEAR 2016 HPV VACCINE (1 - 3-dose SCDM series) 2022 DEPRESSION SCREENING 07/29/2024 COVID-19 VACCINE (1 - 2024-2 6 season) 2025 INFLUENZA VACCINE (#1) 2025 04/27/2016 DTAP/TDAP/TD VACCINES (2 - T d or [...] patient's age to complete this topic Insurance * Guarantor: ALLYSON RODRÍGUEZ Account Type Relation to Patient Date of Phone Billing Address Personal/Family [address] [facility] [place] [address] [employer] [facility] SELF PAY NO INSURANCE Member Subscriber Plan / Payer (Ef fective for All Dates) Name:Allyson Rodríguez R Member ID:Not on file Relation to Subscriber:Not on file Name:ALLYSON RODRÍGUEZ Subscriber ID:Not on file Address: [address] [place] [address] Payer ID:Not on file Group ID:Not on file Type:Self Pay Address: [place], [place] [facility] SELF PAY NO INSURANCE Member Subscriber Plan / Payer (Ef fective for All Dates) Name:Allyson Rodríguez R Member ID:Not on file Relation to Subscriber:Not on file Name:ALLYSON RODRÍGUEZ Subscriber ID:Not on file Address: [address] [place] [id number] Payer ID:Not on file Group ID:Not on file Type:Self Pay Address: [place], [place] [facility] SELF PAY NO INSURANCE Member Subscriber Plan / Payer (Ef fective for All Dates) Name:Allyson Rodríguez R Member ID:Not on file Relation to Subscriber:Not on file Name:ALLYSON RODRÍGUEZ Subscriber ID:Not on file Address: [address] [place] [phone] Payer ID:Not on file Group ID:Not on file Type:Self Pay Address: [place], [place] Advance Directives * Full Code (Latest Code Status on File) Date Activated Date Inactivated Comments 05/28/2016 11:41 AM 06/02/2016 12:41 PM Care Teams Ticket Broker Relationship Specialty Start Date End Date Hina Qiu APRN-MANAGER SUPPLIER [address] [place] [address] PCP - General Certified Clinical Nurse Specialist 05/27/25
--- OUTSIDE RECORDS SUMMARY | 2025-07-16 10:34 | XMS_ITS | Clinical Summary ---
Author Organization [facility] Address [address] [place] [address] Care Team Providers Care Ship'S Pilot Name Role Phone None, Provider Primary Care Provider Hina Verde HOSPICE CARE CONSULTANT Unavailable [phone] Allergies No known active allergies Medications triamcinolone 0.1 % cream Apply topically 2 (two) times daily. 15 g 0 Active amitriptyline (ELAVIL) 10 MG tablet TAKE 1 TABLET BY MOUTH EVERY DAY AT BEDTIME. START WITH 1 TABLET AT BEDTIME AND MAY INCREASE TO 2 TABLETS IF NECESSARY 5 Active topiramate (TOPAMAX) 25 MG tablet 5 Active naproxen (NAPROSYN) 500 MG tablet Take 1 tablet (500 mg total) by mouth 2 (two) times daily with meals. 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 Gender Identity Not on file Sexual Orientation Not on file Last Filed Vital Signs Vital Sign Reading Time Taken Comments Blood Pressure 110/68 03/19/2025 4:43 PM CDT Pulse 90 03/19/2025 4:43 PM CDT Temperature 36.4 C (97.5 F) 03/19/2025 4:43 PM CDT Respiratory Rate 18 03/19/2025 4:43 PM CDT Oxygen Saturation 100% 03/19/2025 4:43 PM CDT Inhaled Oxygen Concentration - - Weight 59.2 kg (130 lb 8.2 oz) 03/19/2025 4:43 P M CDT Height 154.9 cm (5' 1) 03/19/2025 4:43 PM CDT Body Mass Index 24.66 03/19/2025 4:43 PM CDT Plan of Treatment Health Maintenance Due Date Last Done Comments Annual Physical 1998 Hepatitis C 2013 COVID-19 Vaccine ( season) 2025 Influenza Adult (#1) 2025 05/11/2016, 04/27/2016, 12/08/2015 DTaP, Tdap and Td Vaccines (8 - Td or Tdap) 04/27/2026 04/27/2016, 03/15/2016, 05/02/2006, Additional history exists Hepatitis B Vaccines Completed 03/11/1996, 1995, 1995 Meningococcal Vaccine Aged Out 08/05/2007 No [email or web address] [email or web address] eligible based on patient's age to complete this topic HPV Vaccines Completed 02/03/2008, 09/26, 08/05/2007 Hepatitis A Vaccines Completed 11/16/2011, 01/23/20 11 Meningococcal B Vaccine Aged Out No l onger eligible based on patient's age to complete this topic Pneumococcal Vaccine: Pediatrics (0 to 5 Years) and At-Risk Patients (6 to 49 Years) Aged Out No longer eligible based on patient's age to complete this topic RSV Immunizations Under 20 Months Aged Out No longer eligible based on patient's age to complete this topic Insurance [place] Care Teams Ship'S Pilot Relationship Specialty Start Date End Date None, Provider, PCP - General 08/30/19 Hina Qiu FNP [id number] [facility] [address] [place], [place] [id number] CLINICAL NURSE SPECIALIST 09/25/24
--- OUTSIDE RECORDS SUMMARY | 2025-07-16 10:34 | XMS_ITS | Clinical Summary ---
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 Gender Identity Not on file Sexual Orientation Not on file Last Filed Vital Signs Vital Sign Reading Time Taken Comments Blood Pressure 126/80 09/27/2024 6:30 PM PROFESSOR OF FLORICULTURE Pulse 91 09/27/2024 6:30 PM PROFESSOR OF FLORICULTURE Temperature 36.7 C (98.1 F) 09/27/2024 6:30 PM PROFESSOR OF FLORICULTURE Respiratory Rate 18 09/27/2024 6:30 PM PROFESSOR OF FLORICULTURE Oxygen Saturation 98% 09/27/2024 6:30 PM PROFESSOR OF FLORICULTURE Inhaled Oxygen Concentration - - Weight 67.1 kg (148 lb) 09/27/2024 12:44 PM PROFESSOR OF FLORICULTURE Height 154.9 cm (5' 1) 09/27/2024 12:44 PM PROFESSOR OF FLORICULTURE Body Mass Index 27.96 09/27/2024 12:44 PM PROFESSOR OF FLORICULTURE Plan of Treatment Health Maintenance Due Date Last Done Comments Cervical Cancer Screening 1995 Depression Screening 1995 Hepatitis C Screening 1995 Regular Well Visit/Exam 18-64 2013 Influenza Vaccine (#1) 2025 6, 04/27/2016, 12/08/2015 DTaP/Tdap/Td Vaccine (8 - Td or Tdap) 04/27/2026 04/27/2016, 03/15/2016, 05/02/2006, Additional history exists Hepatitis B Screening Completed 03/11/1996 , 1995, 1995 Varicella Vaccines Completed 11/03/2007, 04/04/2000 HPV Vaccines Completed 02/03/2008, 09/26, 08/05/2007 Pneumococcal vaccine <65 Aged Out No longer eligible based on patient's age to complete this topic Insurance [facility] Care Teams Infantry Weapons Crewmember Relationship Specialty Start Date End Date No, Physician PCP - General 09/27/24
--- OUTSIDE RECORDS SUMMARY | 2025-07-16 10:34 | XMS_ITS | Clinical Summary ---
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
[2025-07-16 10:37] LABS: Hematocrit 42.5 % (37.0-47.0); Hemoglobin 14.3 g/dL (12.0-15.0); Immature Granulocyte Percent A 0.5 % (0-0.5); Lymphocytes Absolute Auto 1.69 K/mm3 (0.9-3.2); Mean Corpuscular HGB Conc 33.6 g/dl (32-36); Mean Corpuscular Hemoglobin 29.9 pg (26-34); Mean Corpuscular Volume 88.7 fl (80-100); Nucleated Red Blood Cells Absolute Auto 0.000 K/mm3 (0.0-0.012); Nucleated Red Blood Cells Perc 0.0 % (0.0-0.2); Platelet Count Result 257 k/mm3 (150-375); Red Blood Count 4.79 M/mm3 (4.2-5.4); White Blood Count 4.4 K/mm3 (4.5-10.0)
[2025-07-16 11:01] LABS: Alanine Aminotransferase 23 U/L (6-35); Albumin Level 4.6 g/dL (3.5-5.1); Alkaline Phosphatase 59 U/L (38-126); Anion Gap 9 mmol/L (4-12); Aspartate Amino Transferase 28 U/L (14-36); Bilirubin,Total 0.7 mg/dL (0.2-1.3); Blood Urea Nitrogen 14 mg/dL (7-17); Calcium 9.3 mg/dL (8.4-10.2); Carbon Dioxide 25 mmol/L (22-30); Chloride 106 mmol/L (98-107); Cholesterol 149 mg/dL (0-200); Estimated Glomerular Filt Rate > 60; Glucose 93 mg/dL (65-110); HDL Direct 47 mg/dL; Iron 119 ug/dL (37-170); Magnesium 2.2 mg/dL (1.6-2.3); Potassium 3.8 mmol/L (3.4-5.0); Sodium 140 mmol/L (137-145); Total Protein 7.5 g/dL (6.3-8.2); Triglycerides 65 mg/dL (<150)
[2025-07-16 11:12] LABS: Percent Iron Saturation 39 % (20-50)
[2025-07-16 11:42] LABS: Ferritin 45.60 ng/mL (6.24-137); Thyroid Stimulating Hormone 1.370 uIU/mL (0.465-4.680)
[2025-07-16 11:57] LABS: Vitamin B12 482.0 pg/mL (239-931)
== END 2025-07-16 10:03 | disposition home or self-care (01) ==
LOC: ANHLAB 10:03
PROVIDERS: PCP Internal Medicine; Visit Provider Clinical Nurse Specialist
DX: F41.9 Anxiety disorder, unspecified (principal); D64.9 Anemia, unspecified; G43.909 Migraine, unspecified, not intractable, without status migrainosus; R07.9 Chest pain, unspecified; R74.8 Abnormal levels of other serum enzymes
CPT/HCPCS: 36415; 80053; 80061; 82607; 82728; 83540; 83550; 83735; 84443; 85025